=== PATIENT | female | born 1935 | race Caucasian/White ===

== ENCOUNTER 2017-01-05 12:26 | Inpatient (IN) | payer MEDICARE, OTHER ==
[~2017-01-05] VITALS: Ht 157.5 cm; Wt 79.7 kg
[~2017-01-05 12:26] MED LIST: /GLIP10TAB PO; ALIG4CAP PO; AMLO10TA2 PO; ASPI1TAB PO; ASPI81TA85 PO; ATOR1TAB21 PO; BREO1INH INH; GLIP10TA6 PO; HYDR12CA PO; INSUH10VL SC; INSULANT SC; JANU100T PO; LEVO100T5 PO; LEVO125T3 PO; LEVO50TA4 PO; LOSA100T36 PO; METF500T PO; MIRA255PW PO; MIRA3350 PO; NEXI40CA PO; NEXI40GR PO; SENN8.6T7 PO; SIMV20TA2 PO; SPIR1CAP INH; SPIR25TA2 PO; Spiriva INH; TORS10TA3 PO; ZOCO20TA PO
[2017-01-05 19:05] VITALS: BP 152/70
[2017-01-05] MEDS ORDERED: ACETAMINOPHEN TAB 650MG DOSE (2X325MG) PO PRN (19:30)
[2017-01-05] MEDS ORDERED: GLUCOSE 4 GM CHEW TABLET PO PRN (20:15)
[2017-01-05] MEDS ORDERED: DEXTROSE 50% 50 ML SYRINGE IV PRN (20:15)
[2017-01-05] MEDS ORDERED: GLUCAGON FOR INJ 1 MG VIAL (J1610) SC PRN (20:15)
[2017-01-05 20:27] VITALS: O2SAT 98
[2017-01-05 22:00] VITALS: BP 155/70
[2017-01-05] MEDS ORDERED: [UNRECOGNIZED DRUG - OTHER] INH (22:04)
[2017-01-05] MEDS ORDERED: KEPP1TAB2 PO (22:04)
[2017-01-05] MEDS ORDERED: SYNT137T7 NG (22:04)
[2017-01-05] MEDS ORDERED: IRBE300T10 NG (22:10)
[2017-01-05] MEDS ORDERED: CRES10TA32 NG (22:10)
[2017-01-05] MEDS ORDERED: LASI40TA PO (22:10)
[2017-01-05] MEDS ORDERED: NYST50SS SS (22:10)
[2017-01-05] MEDS ORDERED: AMLO10TA2 NG (22:10)
[2017-01-05] MEDS ORDERED: DIME50TA2 PO (22:18)
[2017-01-05] MEDS ORDERED: SERO1TAB3 PO (22:18)
[2017-01-05] MEDS ORDERED: ALBU17IN INH (22:18)
[2017-01-05] MEDS ORDERED: LORA2TAB9 PO (22:18)
[2017-01-05] MEDS: IPRATROPIUM 0.5MG/ALBUTEROL 2.5MG INH SOL UD 3ML (DUONEB)(J7620) NEB SCH (23:21)
[2017-01-05] MEDS ORDERED: LORazepam 1 MG TAB PO PRN (23:30)
[2017-01-05] MEDS ORDERED: MIRALAX *UNIT DOSE* 17GM PACKET PO PRN (23:30)
[2017-01-05] MEDS: levETIRAcetam 250MG TABLET (KEPPRA) PO SCH (23:41)
[2017-01-05] MEDS: NYSTATIN 500,000 U/5 ML SUSP UDC SS SCH (23:42)
[2017-01-05] MEDS: HumaLOG INSULIN (NovoLOG) PER UNIT SC SCH (23:42)
[2017-01-06] VITALS (8 sets, daily range): BP systolic 124–162; BP diastolic 56–70
--- NOTE | 2017-01-06 00:29 | HPE ---
DATE OF ADMISSION: 01/05/2017 PRIMARY CARE PROVIDER: Dr. Ahmadi REASON FOR ADMISSION: Seizures, status post trache HISTORY OF PRESENT ILLNESS: The patient is an 81-year-old female with a past medical history significant for diabetes, hypertension, hyperlipidemia, was transferred to [facility] from [facility] in [place] earlier today. The patient was in [place] with her , going to a casino, when she had a seizure December 19, 2016. The patient was rushed to the hospital. She was unable to protect her own airway and she was incidentally intubated and was admitted to the intensive care unit. She remained on the ventilator for about 10 days. When she has been extubated, she had laryngeal early edema requiring a tracheostomy. The patient was started on Keppra 750 by mouth twice a day while she was there. Once she became more stable, she was transferred here per family's request. While over there, the patient also developed pneumonia which she was treated with antibiotics. She was also hyperglycemic requiring insulin drip for periods of time. Currently, the patient has been off of the ventilator for three days. She was able to ambulate earlier today. She has been off of the insulin drip, tolerating tube feeds through NG tube REVIEW OF SYSTEMS: Unable to obtain at this time. PAST MEDICAL HISTORY: Significant for diabetes, hypertension, hyperlipidemia, seizures and hypothyroidism. PAST SURGICAL HISTORY: Significant for right middle lobe lobectomy for granuloma, hysterectomy and a recent tracheostomy ALLERGIES: The patient has an allergy to MELOXICAM, reaction unknown. SOCIAL HISTORY: The patient smoked 1/2 pack one half a pack for 20 years but quit in 1992. No alcohol or drug use. Lives at home with her . FAMILY HISTORY: Noncontributory. Medications she was discharged on include Ventolin 2 puffs inhaled every 4 hours as needed for shortness of breath, amlodipine 10 mg by mouth daily, Lasix 40 mg daily, NovoLog sliding scale before meals (ac) and at bedtime, Lantus 42 units at bedtime, irbesartan 300 mg daily, Keppra 750 mg by mouth every 12 hours, Synthroid 137 mcg in the morning, lorazepam 2 mg every 5 minutes as needed for seizures and statin swish and swallow four times a day, MiraLax 17 grams by mouth daily as needed for constipation, Seroquel 25 mg every 6 hours as needed, Crestor 10 mg by mouth daily, Januvia 100 mg by mouth daily . PHYSICAL EXAMINATION: On arrival Vitals, temperature 100.1, pulse 64, respiratory rate 22, blood pressure is 152/70, pulse ox 91% on trache collar. HEENT: Pupils equal round reactive. NG tube in place. The trache collar in place. LUNGS: Diffuse rhonchi. CARDIAC: Regular rate and rhythm. No murmurs appreciated. ABDOMEN: Soft, nontender, nondistended. Positive bowel sounds. EXTREMITIES: Trace edema bilaterally. No clubbing or cyanosis. NEURO: Unable to do a full neurological exam at this time. LABORATORY FINDINGS: None available at this time; will be ordered in the morning. ASSESSMENT/PLAN: 1. Seizures. The patient has no known history of seizures, but had an episode of seizure December 19 requiring intubation. The patient is currently on 750 of Keppra by mouth twice a day and will likely need to followup with neurology upon discharge. The patient did not have any other episodes of seizures per the record. Will continue to monitor. Will continue seizure precautions while in bed. 2. Respiratory failure status post intubation and tracheostomy. The patient currently has a trache collar with good oxygen saturation 98%. Per ICU note prior to transfer, the patient developed laryngeal edema requiring reintubation and a trache collar. ENT consultation is recommended prior to decannulation. Will continue DuoNeb as needed and scheduled. 3. Insulin-dependent diabetes. We will continue insulin sliding scale and Glucerna tube feeds. We will check Accu-Chek every 6 hours. 4. Nutritional status. The patient is currently getting Glucerna for tube feeds. We will order speech evaluation in the morning. 5. Weakness. We will order physical therapy. The patient may need rehabilitation for a short period of time. Will order a Patient Family Services (PFS) consultation as well. 6. Hypertension. The patient's blood pressures are currently stable at 155/70. We will resume the patient's home medications. She had received a dose of hydralazine prior to transfer. 7. Deep vein thrombosis (DVT) prophylaxis. TEDs and sequentials while in bed.
[2017-01-06] MEDS: IPRATROPIUM 0.5MG/ALBUTEROL 2.5MG INH SOL UD 3ML (DUONEB)(J7620) NEB SCH ×4 (01:25→20:00)
[2017-01-06 04:59] LABS: MEAN CORPUSCULAR HEMOGLOBIN 27.5 pg (27.0-33.0); MEAN CORPUSCULAR HGB CONC 31.4 g/dl (32.0-36.5); MEAN CORPUSCULAR VOLUME 87.4 fl (80.0-96.0); RED CELL DISTRIBUTION WIDTH 13.7 % (11.5-14.5); WHITE BLOOD COUNT 8.8 K/mm3 (4.0-10.0)
[2017-01-06 05:14] LABS: ALBUMIN 2.4 GM/DL (3.2-5.2); ALBUMIN/GLOBULIN RATIO 0.57 (1.00-1.93); BILIRUBIN,TOTAL 0.3 MG/DL (0.2-1.0); CALCIUM LEVEL 8.7 MG/DL (8.8-10.2); CREATININE FOR GFR 1.3 MG/DL (0.55-1.02); GLOMERULAR FILTRATION RATE 41.6 (>32); MAGNESIUM LEVEL 2.3 MG/DL (1.8-2.4); POTASSIUM SERUM 4.5 MEQ/L (3.5-5.1); TOTAL PROTEIN 6.6 GM/DL (6.4-8.2)
[2017-01-06] MEDS: HumaLOG INSULIN (NovoLOG) PER UNIT SC SCH ×4 (05:46→23:42)
[2017-01-06] MEDS: NYSTATIN 500,000 U/5 ML SUSP UDC SS SCH ×4 (05:46→23:41)
[2017-01-06] MEDS ORDERED: SODIUM CHLORIDE 0.9% INJ 10 ML SYR IV PRN (07:30)
[2017-01-06] MEDS: amLODIPine 10 MG TAB NG SCH (08:43)
[2017-01-06] MEDS: ROSUVASTATIN 10 MG TAB (CRESTOR) NG SCH (08:43)
[2017-01-06] MEDS: IRBESARTAN 150 MG TAB NG SCH (08:43)
[2017-01-06] MEDS: levETIRAcetam 250MG TABLET (KEPPRA) PO SCH ×2 (08:43→21:40)
[2017-01-06] MEDS: FUROSEMIDE 40 MG TAB PO SCH (08:43)
[2017-01-06] MEDS: SPIRONOLACTONE 25 MG TAB PO SCH (08:44)
[2017-01-06] MEDS ORDERED: LEVOTHYROXINE 0.137 MG TAB (137MCG) NG SCH (09:00)
--- NOTE | 2017-01-06 14:20 | IPNPDOC ---
Text Note Date of Service The patient was seen on 01/06/17. NOTE Subjective: Patient is a 81 year old female with a PMHx IDDM2, HTN, and DLP who presented to [facility] from [facility]. Patient had a seizure episode and was taken to [facility] where she was intubated for airway protection. She remained intubated for 10 days. Upon extubation, she was found to have laryngeal edema and received a tracheostomy. During her ICU course at [facility] she had uncontrolled glucose and was put on an insulin drip. Patient had a NGT placed for feeding. Patient was seen and examined at the bedside. Patient did not have any specific complaints today and had no events overnight. Objective: Vitals (See below) General: Lying in bed, no acute distress, comfortable, AAOx3 HEENT: s/p Tracheostomy, s/p NGT CVS: RRR, +S1S2 Lungs: Fair air entry b/l, -w/r/r Abdomen: Soft, ND, NT, +BSx4 Extremities: +PPx4, - Edema, - Calf tenderness Assessment and plan: 1. s/p Ventilatory dependent respiratory failure; with resulting laryngeal edema - s/p tracheostomy - Surgery performed in [place] - Currently she is tolerating room air via tracheostomy - Swallow evaluation complete this morning; failed - Will get ENT to evaluate to see if tracheostomy can be reversed - Will repeat swallow evaluation; if still failing - may require PEG tube placement - c/w Glucerna via NGT at this time 2. Seizure disorder - Last episode on 12/19/2016 - c/w seizure precautions - c/w Keppra 750 PO BID 3. IDDM2 - has been on long acting insulin as an outpatient; but on hold currently - c/w ISS 4. Weakness - will get physical therapy for rehabilitation - will get PM&R assessment 5. HTN - BP moderately controlled - c/w Amlodipine, Furosemide and Spironolactone 6. DVT prophylaxis - c/w SCDs VS,Fishbone, I+O VS, Fishbone, I+O Laboratory Tests 01/06/17 04:32 Red Blood Count 3.81 L, Mean Corpuscular Volume 87.4, Mean Corpuscular Hemoglobin 27.5, Mean Corpuscular Hemoglobin Concent 31.4 L, Red Cell Distribution Width 13.7, Calcium Level 8.7 L, Aspartate Amino Transf (AST/SGOT) 11 L, Alanine Aminotransferase (ALT/SGPT) 31, Alkaline Phosphatase 111, Total Bilirubin 0.3, Total Protein 6.6, Albumin 2.4 L Vital Signs Date Time Temp Pulse Resp B/P (MAP) Pulse Ox O2 Delivery O2 Flow Rate FiO2 01/06/17 12:00 98.4 69 22 157/70 (99) 95 Room Air 01/06/17 09:27 28 01/05/17 20:27 5.0 I&O- Last 24 Hours up to 6 AM 01/06/17 06:00 Intake Total 175 ml Output Total 450 ml Balance -275 ml ISAK SNEED MD January 06, 2017 14:20
--- NOTE | 2017-01-06 14:58 | CR ---
DATE OF CONSULTATION: 01/06/2017 REASON FOR CONSULTATION: Tracheostomy management. REQUESTING PHYSICIAN: Dr. Kwon HISTORY OF PRESENT ILLNESS: Beatriz Black is an 81-year-old woman who had a seizure while at a casino in [place] December 19. Ultimately, the patient was rushed to the hospital and she was intubated. Subsequently she required tracheostomy tube placement. The patient has now been transferred here to [facility]. She arrived yesterday. Per the foreign exchange dealer note, the patient has been off the ventilator now for 4 days. She is not requiring any supplemental oxygen and the question whether or not she can be decannulated. Significantly, the patient did have a trial of extubation while she was in [place] and apparently the development of laryngeal edema did require tracheostomy placement. PAST MEDICAL HISTORY: Diabetes. Hypertension. Hyperlipidemia. Hypothyroidism. Seizures. PAST SURGICAL HISTORY: Right middle lobe lobectomy for granuloma. Hysterectomy. Tracheostomy. ALLERGIES: MELOXICAM. SOCIAL HISTORY: The patient quit smoking in 1992. FAMILY HISTORY: Noncontributory. REVIEW OF SYSTEMS: Is difficult to obtain. The patient's ability to communicate is hampered significantly by tracheostomy. PHYSICAL EXAMINATION: Temperature 98.1, pulse 58, blood pressure 146/64, respirations 20. GENERAL: The patient is in no acute distress. The patient is not recieving any supplemental oxygen and appears comfortable. There is no tachypnea. The patient is nodding her head to answer questions appropriately. She seems oriented. NECK: There is tracheostomy tube in place. This is a #6 XLT tube. There does not appear to be any significant bleeding around the stoma. There are no signs of infection about the stoma. There are no sutures about the stoma. Tracheostomy tube is secured by trach collar. Flexible laryngoscopy was done. The flexible laryngoscope was inserted into the left nares. There is a feeding tube in the right nares. The laryngoscope was passed down. The nasopharynx is free of any lesions. The vallecula appears normal. The epiglottis appears normal. Both vocal cords are mobile. There is trace vocal cord edema and erythema. No significant swelling. No vocal cord lesions. No hypopharyngeal lesions are appreciated. The scope was then removed and it was placed into the tracheostomy tube. The scope was passed down the tracheostomy tube. There are no lesions from the end of the tracheostomy tube to the maira. There are a lot of secretions in the trachea. ASSESSMENT AND PLAN: Ms. Black is an 81-year-old woman, status post recent tracheostomy. The patient appears to be a good candidate for decannulation. I would like to downsize to a smaller uncuffed tube first and then would anticipate over the weekend, decannulating the patient. I have ordered for supplied to be made available to the bedside and as soon as those are available, will proceed with this plan.
[2017-01-06] MEDS: QUEtiapine FUMARATE 25 MG TAB PO PRN ×2 (15:07→21:40)
[2017-01-06] MEDS: SODIUM CHLORIDE 0.9% INJ 10 ML SYR IV SCH (17:40)
[2017-01-07] VITALS (7 sets, daily range): BP systolic 116–153; BP diastolic 57–74
[2017-01-07] MEDS: IPRATROPIUM 0.5MG/ALBUTEROL 2.5MG INH SOL UD 3ML (DUONEB)(J7620) NEB SCH ×4 (01:39→20:38)
[2017-01-07 05:42] LABS: MEAN CORPUSCULAR HEMOGLOBIN 28.1 pg (27.0-33.0); MEAN CORPUSCULAR HGB CONC 32.4 g/dl (32.0-36.5); MEAN CORPUSCULAR VOLUME 86.9 fl (80.0-96.0); WHITE BLOOD COUNT 10.5 K/mm3 (4.0-10.0)
[2017-01-07] MEDS: SODIUM CHLORIDE 0.9% INJ 10 ML SYR IV SCH ×2 (05:51→18:00)
[2017-01-07] MEDS: LEVOTHYROXINE 0.137 MG TAB (137MCG) NG SCH (05:51)
[2017-01-07] MEDS: HumaLOG INSULIN (NovoLOG) PER UNIT SC SCH ×4 (05:51→23:52)
[2017-01-07] MEDS: NYSTATIN 500,000 U/5 ML SUSP UDC SS SCH ×4 (05:51→23:52)
[2017-01-07 06:33] LABS: ALBUMIN 2.5 GM/DL (3.2-5.2); ALBUMIN/GLOBULIN RATIO 0.69 (1.00-1.93); BILIRUBIN,TOTAL 0.3 MG/DL (0.2-1.0); CALCIUM LEVEL 8.8 MG/DL (8.8-10.2); CREATININE FOR GFR 1.4 MG/DL (0.55-1.02); GLOMERULAR FILTRATION RATE 38.2 (>32); MAGNESIUM LEVEL 2.3 MG/DL (1.8-2.4); POTASSIUM SERUM 4.8 MEQ/L (3.5-5.1); TOTAL PROTEIN 6.1 GM/DL (6.4-8.2)
[2017-01-07] MEDS ORDERED: NS 1,000 ML IV SCH (07:45)
[2017-01-07] MEDS: amLODIPine 10 MG TAB NG SCH (10:09)
[2017-01-07] MEDS: ROSUVASTATIN 10 MG TAB (CRESTOR) NG SCH (10:10)
[2017-01-07] MEDS: SPIRONOLACTONE 25 MG TAB PO SCH (10:10)
[2017-01-07] MEDS: levETIRAcetam 250MG TABLET (KEPPRA) PO SCH ×2 (10:10→20:06)
[2017-01-07] MEDS: FUROSEMIDE 40 MG TAB PO SCH (10:10)
[2017-01-07] MEDS: IRBESARTAN 150 MG TAB NG SCH (10:11)
--- NOTE | 2017-01-07 11:16 | IPN ---
DATE: 01/07/2017 Lizbeth Black is an 81-year-old woman with indwelling tracheostomy tube. The plan for today was to down-size the tracheostomy tube. However, smaller adult size tracheostomy tubes are not available. So my plan will be to remove the existing tracheostomy tube and follow the patient. On exam, the patient is in no acute distress. She seems to be in good spirits. She is oriented. I placed the patient in supine position and removed the #6 Shiley XLT tube from the tracheal stoma and then occluded the stoma with my finger. The patient was breathing well. No tachypnea. No stridor. No distress. The patient was able to voice with my finger occluding the stoma. Therefore, a dressing was placed over the stoma and the patient was placed back in the head of bed elevated position. The nurses placed the patient on pulse ox monitor. ASSESSMENT/PLAN: Ms. Black was decannulated at the bedside today. She is doing well from that standpoint. I will continue to follow. I would recommend speech therapy return and evaluated the patient with a bedside swallow exam so that the nasogastric tube can be removed.
--- NOTE | 2017-01-07 15:00 | IPNPDOC ---
Text Note Date of Service The patient was seen on 01/07/17. NOTE Subjective: Patient is a 81 year old female with a PMHx IDDM2, HTN, and DLP who presented to [facility] from [facility]. Patient had a seizure episode and was taken to [facility] where she was intubated for airway protection. She remained intubated for 10 days. Upon extubation, she was found to have laryngeal edema and received a tracheostomy. During her ICU course at [facility] she had uncontrolled glucose and was put on an insulin drip. Patient had a NGT placed for feeding. Patient was seen and examined at the bedside. Patient has had her tracheostomy tube removed. She has still failed her swallow evaluation. Objective: Vitals (See below) General: Lying in bed, no acute distress, comfortable, AAOx3 HEENT: s/p Tracheostomy, s/p NGT CVS: RRR, +S1S2 Lungs: Fair air entry b/l, -w/r/r Abdomen: Soft, ND, NT, +BSx4 Extremities: +PPx4, - Edema, - Calf tenderness Assessment and plan: 1. s/p Ventilatory dependent respiratory failure; with resulting laryngeal edema - s/p tracheostomy - Surgery performed in [place] - Currently she is tolerating room air after the tracheostomy has been reversed - Swallow evaluation repeated this morning; again has failed after tracheostomy reversal - ENT (Dr. Wall) has been consulted - appreciate their input - Will attempt to get additional swallow evaluation; if failed, will get surgery onboard for PEG tube - c/w Glucerna via NGT at this time 2. Seizure disorder - Last episode on 12/19/2016 - c/w seizure precautions - c/w Keppra 750 PO BID 3. IDDM2 - has been on long acting insulin as an outpatient; but on hold currently - c/w ISS 4. Weakness - c/w PT - Awaiting PM&R assessment 5. HTN - BP moderately controlled - c/w Amlodipine, Furosemide and Spironolactone 6. DVT prophylaxis - c/w SCDs VS,Fishbone, I+O VS, Fishbone, I+O Laboratory Tests 01/07/17 05:28 Red Blood Count 3.28 L, Mean Corpuscular Volume 86.9, Mean Corpuscular Hemoglobin 28.1, Mean Corpuscular Hemoglobin Concent 32.4, Red Cell Distribution Width 14.0, Calcium Level 8.8, Aspartate Amino Transf (AST/SGOT) 15 , Alanine Aminotransferase (ALT/SGPT) 30, Alkaline Phosphatase 114, Total Bilirubin 0.3, Total Protein 6.1 L, Albumin 2.5 L Vital Signs Date Time Temp Pulse Resp B/P (MAP) Pulse Ox O2 Delivery O2 Flow Rate FiO2 01/07/17 12:23 Nasal Cannula 2.0 01/07/17 12:00 98.9 69 18 153/74 (100) 92 01/07/17 08:05 40 I&O- Last 24 Hours up to 6 AM 01/07/17 06:00 Intake Total 690 ml Output Total 1275 ml Balance -585 ml ISAK SNEED MD January 07, 2017 15:00
--- NOTE | 2017-01-07 15:02 | REP ---
PORTABLE CHEST X-RAY: TWO SITTING AP VIEWS. HISTORY: Feeding tube placement. COMPARISON STUDY: March 29, 2016. FINDINGS: EKG monitoring electrodes overlie the chest. Nasogastric tube is seen coursing through the mediastinum entering the left upper quadrant of the abdomen. It appears to terminate at the level of the gastric fundus. There is a left arm PICC line terminating in the expected location of the superior vena cava. Lung hunt are clear. Slight blunting of the right lateral pleural angle is seen. IMPRESSION: Nasogastric tube terminates in the gastric fundus region. Signed by John Denton MD 01/07/2017 04:38 P
[2017-01-07] MEDS: QUEtiapine FUMARATE 25 MG TAB PO PRN (16:48)
[2017-01-07] MEDS: ACETAMINOPHEN 325 MG/10.15 ML UDC GT PRN ×2 (16:49→23:51)
[2017-01-08] VITALS (8 sets, daily range): BP systolic 114–159; BP diastolic 58–71; O2SAT 91
[2017-01-08] MEDS: IPRATROPIUM 0.5MG/ALBUTEROL 2.5MG INH SOL UD 3ML (DUONEB)(J7620) NEB SCH ×4 (01:07→19:59)
[2017-01-08] MEDS: ACETAMINOPHEN 325 MG/10.15 ML UDC GT PRN ×4 (04:48→20:19)
[2017-01-08 05:15] LABS: ALBUMIN 2.4 GM/DL (3.2-5.2); ALBUMIN/GLOBULIN RATIO 0.6 (1.00-1.93); BILIRUBIN,TOTAL 0.3 MG/DL (0.2-1.0); CALCIUM LEVEL 8.4 MG/DL (8.8-10.2); CREATININE FOR GFR 1.42 MG/DL (0.55-1.02); GLOMERULAR FILTRATION RATE 37.6 (>32); MAGNESIUM LEVEL 2.3 MG/DL (1.8-2.4); POTASSIUM SERUM 4.5 MEQ/L (3.5-5.1); TOTAL PROTEIN 6.4 GM/DL (6.4-8.2)
[2017-01-08 05:23] LABS: MEAN CORPUSCULAR HEMOGLOBIN 27.6 pg (27.0-33.0); MEAN CORPUSCULAR HGB CONC 31.1 g/dl (32.0-36.5); MEAN CORPUSCULAR VOLUME 88.8 fl (80.0-96.0); PLATELET COUNT, AUTOMATED 353 k/mm3 (150-450); WHITE BLOOD COUNT 12.5 K/mm3 (4.0-10.0)
[2017-01-08] MEDS: LEVOTHYROXINE 0.137 MG TAB (137MCG) NG SCH (05:37)
[2017-01-08] MEDS: NYSTATIN 500,000 U/5 ML SUSP UDC SS SCH ×4 (05:37→23:41)
[2017-01-08] MEDS: SODIUM CHLORIDE 0.9% INJ 10 ML SYR IV SCH ×2 (05:38→18:00)
[2017-01-08] MEDS: HumaLOG INSULIN (NovoLOG) PER UNIT SC SCH ×3 (05:39→18:00)
[2017-01-08] MEDS: IRBESARTAN 150 MG TAB NG SCH (08:49)
[2017-01-08] MEDS: SPIRONOLACTONE 25 MG TAB PO SCH (08:50)
[2017-01-08] MEDS: FUROSEMIDE 40 MG TAB PO SCH (08:50)
[2017-01-08] MEDS: amLODIPine 10 MG TAB NG SCH (08:50)
[2017-01-08] MEDS: levETIRAcetam 250MG TABLET (KEPPRA) PO SCH ×2 (08:50→20:19)
[2017-01-08] MEDS: ROSUVASTATIN 10 MG TAB (CRESTOR) NG SCH (08:50)
[2017-01-08 08:51] LABS: ERYTHROCYTE SEDIMENTATION RATE > 140 mm/hr (0-30)
--- NOTE | 2017-01-08 08:57 | REP ---
Clinical: Follow up infiltrate/effusion. Technique: PA and lateral. Comparison: 01/07/2017. Findings: Left PICC line with tip in the SVC unchanged. Mediastinum and cardiac silhouette are stable. Chronic interstitial changes are appreciated with suggestions for mild bibasilar atelectasis and pleural reactions. No pneumothorax. Skeletal structures stable. Impression: Trace posterior basilar atelectasis and small pleural reactions suggested. Signed by Jose Galindo MD 01/08/2017 08:49 A
--- NOTE | 2017-01-08 10:12 | IPN ---
DATE: 01/08/2017 Ms. Black had an evaluation by speech pathology yesterday and was felt to be unsafe to swallow. Patient complains today that is hurts to breathe. Oxygen has been increased to 3 liters. On examination, the patient is sitting up in a chair, she looks uncomfortable, however, the patient is in no acute distress. The breathing is a little noisy and the patient can voice, her voice sounds weak and hoarse. The neck exam demonstrates healing tracheal stoma, dressing was changed, there are no signs of infection around the tracheal stoma. No subcutaneous air. ASSESSMENT AND PLAN: Ms. Black is an 81-year-old woman status post decannulation of tracheostomy tube. Her voice sounds a bit weaker than I would expect at this point. I will see that patient again tomorrow. If the voice continues in this way, I will take another look with the flexible laryngoscope.
[2017-01-08] MEDS: LEVEMIR (INSULIN DETEMIR) 1 UNITS/0.01ML SC SCH ×2 (10:55→20:18)
[2017-01-08] MEDS ORDERED: cefTRIAXone SOD 1 GM in D5W MINI-BAG PLUS 50 ML IV SCH (13:30)
[2017-01-08] MEDS ORDERED: AZITHROMYCIN INJ 500 MG, VIAL MATE ADAPTER 1 EACH in D5W 250 ML IV SCH (13:30)
--- NOTE | 2017-01-08 13:30 | IPNPDOC ---
Text Note Date of Service The patient was seen on 01/08/17. NOTE Subjective: Patient is a 81 year old female with a PMHx IDDM2, HTN, and DLP who presented to [facility] from [facility]. Patient had a seizure episode and was taken to [facility] where she was intubated for airway protection. She remained intubated for 10 days. Upon extubation, she was found to have laryngeal edema and received a tracheostomy. During her ICU course at [facility] she had uncontrolled glucose and was put on an insulin drip. Patient had a NGT placed for feeding. Patient was seen and examined at the bedside. Patient is currently noted that she is hungry and wants to eat. I have advised her that we will have to wait for a repeat swallow study before her diet can be resumed. She denies any pain. She does have a cough. Objective: Vitals (See below) General: Lying in bed, no acute distress, comfortable, AAOx3 HEENT: s/p Tracheostomy, s/p NGT CVS: RRR, +S1S2 Lungs: Fair air entry b/l, -w/r/r Abdomen: Soft, ND, NT, +BSx4 Extremities: +PPx4, - Edema, - Calf tenderness Assessment and plan: 1. s/p Ventilatory dependent respiratory failure; with resulting laryngeal edema - s/p tracheostomy - Surgery performed in [place] - Currently she is tolerating room air after the tracheostomy has been reversed - Swallow evaluation was repeated but was unsucessful - Plan for repeat swallow evaluation on Tuesday; if failed will consult GI - ENT (Dr. Wall) has been consulted - appreciate their input - c/w Glucerna via NGT at this time 2. Leukocytosis - possibly 2/2 atelectasis, possibly 2/2 healthcare associated pneumonia - no reported fevers - patient does have a cough - will get sputum sample - start incentive spirometry - Will repeat lab work; if still elevated will start antibiotics 3. Normocytic anemia - Hg baseline of 11-12 - Hg on admission was 10.5; has trended down to 8.7 - No reported blood loss - Will check Iron panel, B12, Folate and reticulocyte count - Will repeat CBC at 12 - Will transfuse if required 4. Seizure disorder - Last episode on 12/19/2016 - c/w seizure precautions - c/w Keppra 750 PO BID 5. IDDM2 - will start Levemir 10 units BID today - c/w ISS 6. Weakness - c/w PT - Awaiting PM&R assessment 7. HTN - BP moderately controlled - c/w Amlodipine and Spironolactone - Will reduce Furosemide to 20 (from 40 daily) 8. DVT prophylaxis - c/w SCDs VS,Fishbone, I+O VS, Fishbone, I+O Laboratory Tests 01/08/17 04:42 Red Blood Count 3.15 L, Mean Corpuscular Volume 88.8, Mean Corpuscular Hemoglobin 27.6, Mean Corpuscular Hemoglobin Concent 31.1 L, Red Cell Distribution Width 14.0, Calcium Level 8.4 L, Aspartate Amino Transf (AST/SGOT) 8 L, Alanine Aminotransferase (ALT/SGPT) 27, Alkaline Phosphatase 112, Total Bilirubin 0.3, Total Protein 6.4, Albumin 2.4 L Vital Signs Date Time Temp Pulse Resp B/P (MAP) Pulse Ox O2 Delivery O2 Flow Rate FiO2 01/08/17 12:00 98.6 55 20 114/58 (76) 96 Nasal Cannula 3.0 01/07/17 08:05 40 I&O- Last 24 Hours up to 6 AM 01/08/17 06:00 Intake Total 2050 ml Output Total 750 ml Balance 1300 ml ISAK SNEED MD January 08, 2017 13:30
[2017-01-08 14:09] LABS: BASO % 0.2 % (0.0-1.0); EOS # 0.2 K/mm3 (0.0-0.50); EOS % 1.6 % (0.0-3.0); LARGE UNSTAINED CELL # 0.2 K/mm3 (0.0-0.4); LARGE UNSTAINED CELL % 1.3 % (0.0-4.0); LYMPH # 1.5 K/mm3 (1.5-4.5); LYMPH % 9.5 % (24.0-44.0); MEAN CORPUSCULAR HEMOGLOBIN 27.9 pg (27.0-33.0); MEAN CORPUSCULAR HGB CONC 32.1 g/dl (32.0-36.5); MEAN CORPUSCULAR VOLUME 86.9 fl (80.0-96.0); MONO # 0.7 K/mm3 (0.0-0.8); MONO % 4.6 % (0.0-5.0); NEUTROPHILS # 13.3 K/mm3 (1.8-7.7); NEUTROPHILS % 82.8 % (36.0-66.0); PLATELET COUNT, AUTOMATED 368 k/mm3 (150-450); RED CELL DISTRIBUTION WIDTH 13.9 % (11.5-14.5); WHITE BLOOD COUNT 16.1 K/mm3 (4.0-10.0)
[2017-01-08] MEDS: QUEtiapine FUMARATE 25 MG TAB PO PRN (14:10)
[2017-01-08 14:11] LABS: RETIC HEMOGLOBIN CONTENT CHr 30.5 PG (24-36); RETICULOCYTE % ADVIA2120 1.7 % (0.5-1.5)
[2017-01-08 14:34] LABS: FERRITIN 97 NG/ML (8-252); PERCENT SATURATION 7.1 % (13.2-37.4); TOTAL IRON BINDING CAPACITY 336 UG/DL (250-450)
[2017-01-08] MEDS: PIPERACILLIN/TAZOBACTAM SOD 3.375 GM in D5W MINI-BAG PLUS 50 ML IV SCH ×2 (15:49→22:41)
[2017-01-08] MEDS ORDERED: VANCOMYCIN HCL 750 MG, VIAL MATE ADAPTER 1 EACH in D5W 250 ML IV SCH (16:00)
--- NOTE | 2017-01-08 20:54 | PHACANCOPD ---
PHARMACY VANCOMYCIN DOSING Pt Demographics Demographics Patient Age:81 , Weight:79.100 , Gender: female Adjusted Body Weight Date: 01/08/17, Adjusted Body Weight: [67] Kg Events Past 24 Hours Events Past 24 Hours: NO: Dialysis, Diuretic Therapy, Change in CrCl, Fever, Elevation in WBC, Pending Diagnostics, Pending Procedures, Other Vancomycin Vancomycin Target Ranges: 15-20 mcg/ml Vancomycin Load Y/N: No Load Dose Date Time Vancomycin Load Dose: Date: Time: Vancomycin Dose Date: 01/08/17. Current Vancomycin Dose: [1000MG Q24H] Intermittent Dosing?: No Labs Labs Item Value Date Time White Blood Count 16.1 K/mm3 H 01/08/17 1353 Creatinine 1.42 MG/DL H 01/08/17 0442 Vital Signs Label Value Date Time Patient Temperature 99.5 degrees F 01/08/17 1600 Temperature Source Temporal 01/08/17 1600 Micro Microbiology 01/08/17 Blood Culture, Received Pending 01/08/17 Blood Culture, Received Pending Creatinine Clearance Date:01/08/17. Creatinine Clearance: [25]. Pending Labs trough - @0800 Assessment and Plan Maintaining Current Dose?: Yes Reason for dose change: No Dose Change Pharmacist Note Pharmacist Note Date: 01/08/17. Pharmacist note:initial 750mg dose given 01-08 @1600. started 1000mg q24h dosing - @0900. Trough ordered for - @0800. Will continue to monitor and make adjustments as needed. [facility] January 08, 2017 20:54
[2017-01-08] MEDS: ONDANSETRON 4MG/2ML VIAL (J2405) IV SCH (21:30)
[2017-01-08] MEDS ORDERED: NS 1,000 ML IV SCH (23:30)
[2017-01-08] MEDS: D5W/0.9% SODIUM CHLORIDE 1,000 ML IV SCH (23:54)
[2017-01-09] MEDS: IPRATROPIUM 0.5MG/ALBUTEROL 2.5MG INH SOL UD 3ML (DUONEB)(J7620) NEB SCH ×4 (01:38→19:59)
[2017-01-09] MEDS: ONDANSETRON 4MG/2ML VIAL (J2405) IV SCH ×2 (01:53→05:08)
[2017-01-09 03:42] VITALS: BP 141/65
[2017-01-09] MEDS: LEVOTHYROXINE 0.137 MG TAB (137MCG) NG SCH (05:07)
[2017-01-09] MEDS: QUEtiapine FUMARATE 25 MG TAB PO PRN (05:07)
[2017-01-09] MEDS: NYSTATIN 500,000 U/5 ML SUSP UDC SS SCH ×4 (05:07→23:47)
[2017-01-09] MEDS: SODIUM CHLORIDE 0.9% INJ 10 ML SYR IV SCH ×2 (05:08→17:08)
[2017-01-09] MEDS: HumaLOG INSULIN (NovoLOG) PER UNIT SC SCH ×5 (05:46→23:48)
[2017-01-09 05:55] LABS: MEAN CORPUSCULAR HEMOGLOBIN 27.6 pg (27.0-33.0); MEAN CORPUSCULAR HGB CONC 32.1 g/dl (32.0-36.5); RED CELL DISTRIBUTION WIDTH 13.9 % (11.5-14.5); WHITE BLOOD COUNT 14.9 K/mm3 (4.0-10.0)
[2017-01-09] MEDS: PIPERACILLIN/TAZOBACTAM SOD 3.375 GM in D5W MINI-BAG PLUS 50 ML IV SCH ×3 (06:04→22:07)
[2017-01-09 06:13] LABS: ALBUMIN 2.4 GM/DL (3.2-5.2); ALBUMIN/GLOBULIN RATIO 0.56 (1.00-1.93); BILIRUBIN,TOTAL 0.3 MG/DL (0.2-1.0); CALCIUM LEVEL 8.8 MG/DL (8.8-10.2); CREATININE FOR GFR 1.79 MG/DL (0.55-1.02); GLOMERULAR FILTRATION RATE 28.8 (>32); MAGNESIUM LEVEL 2.3 MG/DL (1.8-2.4); PHOSPHORUS LEVEL 4.4 MG/DL (2.5-4.9); POTASSIUM SERUM 3.9 MEQ/L (3.5-5.1); TOTAL PROTEIN 6.7 GM/DL (6.4-8.2)
[2017-01-09 08:00] VITALS: BP 115/60
[2017-01-09] MEDS: ACETAMINOPHEN 325 MG/10.15 ML UDC GT PRN ×2 (08:22→17:09)
[2017-01-09] MEDS: ROSUVASTATIN 10 MG TAB (CRESTOR) NG SCH (08:22)
[2017-01-09] MEDS: SPIRONOLACTONE 25 MG TAB PO SCH (08:22)
[2017-01-09] MEDS: levETIRAcetam 250MG TABLET (KEPPRA) PO SCH ×2 (08:22→21:45)
[2017-01-09] MEDS: amLODIPine 5 MG TAB NG SCH (08:23)
[2017-01-09] MEDS: IRBESARTAN 150 MG TAB NG SCH (08:23)
[2017-01-09] MEDS: VANCOMYCIN HCL 1,000 MG, VIAL MATE ADAPTER 1 EACH in D5W 250 ML IV SCH (08:23)
[2017-01-09] MEDS: LEVEMIR (INSULIN DETEMIR) 1 UNITS/0.01ML SC SCH ×2 (08:24→21:45)
[2017-01-09 08:47] VITALS: O2SAT 96
[2017-01-09] MEDS ORDERED: FUROSEMIDE 20 MG TAB PO SCH (09:00)
[2017-01-09] MEDS: D5W/0.9% SODIUM CHLORIDE 1,000 ML IV SCH ×2 (09:29→21:46)
[2017-01-09] MEDS: METOCLOPRAMIDE INJ 10MG/2ML VIAL (J2765) IV SCH ×3 (09:29→21:45)
--- NOTE | 2017-01-09 10:25 | CR ---
DATE OF CONSULTATION: 01/09/2017 CHIEF COMPLAINT: Abdominal distension. HISTORY OF PRESENT ILLNESS: The patient is a 81-year-old female who was recently transferred to [facility] from [facility] in [place] for tracheostomy care. Her tracheostomy has been removed, however, due to dysphagia she has been getting tube feeds through an nasogastric tube (NG) tube. She was be watched over the weekend with plan to repeat a swallow evaluation this coming Tuesday, however, over the afternoon yesterday she started to become more distended with poor bowel sounds. She had a CAT scan completed which showed signs of a partial versus complete small bowel obstruction with collapse of the distal small bowel and large intestine, therefore I have been asked to evaluate. The patient denies any current pain. No nausea or vomiting. No bowel movements or flatus in the last 24 hours. She has had a hysterectomy in the past but denies any other abdominal surgeries. No problems with bowel obstructions previously. She does feel slightly more distended than normal, however, no pain currently. She has had the NG tube in for a few days and was receiving tube feeds through it, but now it is on wall suction and is putting out bilious fluid. PAST MEDICAL HISTORY: Diabetes, hypertension, hyperlipidemia, seizures, hypothyroidism. PAST SURGICAL HISTORY: Right middle lobe lobectomy for granuloma, hysterectomy, tracheostomy. MEDICATIONS: Please see medical record. ALLERGIES: MELOXICAM. SOCIAL HISTORY: Denies any current drug, alcohol, or tobacco abuse. FAMILY HISTORY: Noncontributory. REVIEW OF SYSTEMS: Pertinent positives and negatives stated in the HPI. PHYSICAL EXAMINATION: General: Alert and oriented times three. No acute distress. Vitals: Temperature 98.9, pulse 63, respirations 18, blood pressure 115/60, pulse ox 100% on 3 liters nasal cannula. HEENT: Pupils equal round and react to light and accommodation. Heart: S1-S2 regular rate and rhythm. Lungs: Clear to auscultation bilaterally. Abdomen: Soft, tender to palpation diffusely, slightly distended. No rebounding or guarding. Extremities: No clubbing, cyanosis or edema. LABORATORY DATA: White count 14.9, hemoglobin 9.3. IMAGING: CT abdomen and pelvis again shows dilated proximal small bowel with collapsed small-bowel in the right lower abdomen and collapsed colon. No signs of any free air or free fluid. ASSESSMENT/PLAN: The patient is an 81-year-old female status post recent tracheostomy for laryngeal edema that has been removed. However, she has had difficulty swallowing and failed her first swallow evaluation. She has been getting tube feeds through the NG tube with plans to have repeat swallow evaluation this coming Tuesday. However, over the weekend she has had abdominal distension. NG tube is now to suction. She has what appears to be a partial versus complete acute small bowel obstruction on CAT scan, this could be secondary to internal hernia versus adhesions. Recommendation at this time is to continue with IV fluids, antibiotics and NG tube decompression. I explained to the patient that we will continue to monitor this. Her lactic acid was normal last evening at 1.7. As long as her white count does not shoot up dramatically and her lactic acid remains normal and she remains afebrile we will continue to watch her for 72 hours to see if this will decompress on its own. I also encouraged ambulation. If after 72 hours she is not opened up then we will consider diagnostic laparoscopy versus laparotomy to fix the bowel obstruction.
--- NOTE | 2017-01-09 11:03 | IPN ---
DATE: 01/09/2017 Beatriz Black has had some vomiting overnight. She is still on 3 liters nasal cannula. is at the bedside and he says that the patient's voice has been improving and her breathing has been getting a little bit easier. On examination, the patient is lying in bed, she was asleep, I woke her up and indeed her voice does sound stronger and less hoarse today. I do not detect any stridor. Patient has no tachypnea. Her breathing is not noisy. Patient has fresh dressing in place on the tracheal stoma site. ASSESSMENT AND PLAN: Beatriz Black is an 81-year-old woman status post decannulation of tracheostomy. At this point she seems to be doing well with this and I will sign off. If there are any other concerns regarding this patient, please recall me.
--- NOTE | 2017-01-09 11:50 | IPNPDOC ---
Text Note Date of Service The patient was seen on 01/09/17. NOTE Subjective: Patient is a 81 year old female with a PMHx IDDM2, HTN, and DLP who presented to [facility] from [facility]. Patient had a seizure episode and was taken to [facility] where she was intubated for airway protection. She remained intubated for 10 days. Upon extubation, she was found to have laryngeal edema and received a tracheostomy. During her ICU course at [facility] she had uncontrolled glucose and was put on an insulin drip. Patient had a NGT placed for feeding. Patient was seen and examined at the bedside. Patient has noted to have nausea and vomiting yesterday, as well as abdominal pain. She went for a CT scan of her abdomen / pelvis which revealed a new SBO. Surgery was consulted. Currently she still notes some nausea that hasn't resolved. Objective: Vitals (See below) General: Lying in bed, no acute distress, comfortable, AAOx3 HEENT: s/p Tracheostomy, s/p NGT CVS: RRR, +S1S2 Lungs: Fair air entry b/l, -w/r/r Abdomen: Soft, ND, Tenderness at LUQ / Epigastric area, Hypoactive bowel sounds Extremities: +PPx4, - Edema, - Calf tenderness Assessment and plan: 1. s/p Ventilatory dependent respiratory failure; with resulting laryngeal edema - s/p tracheostomy - Surgery performed in [place] - s/p Decannulation - Tolerating decannulation well - Swallow evaluation was repeated but was unsuccessful - Plan for repeat swallow evaluation on Tuesday; if failed will consult GI / Surgery - Hold feedings at this time (re: SBO) 2. Leukocytosis - possibly 2/2 atelectasis, possibly 2/2 healthcare associated pneumonia, possibly 2/2 intra-abdominal etiology - no reported fevers - patient does have a productive cough - Improvement in Leukocytosis - will get sputum sample - c/w incentive spirometry - c/w Vancomycin and Zosyn (Day #2) 3. Nausea and vomiting - likely 2/2 Small bowel obstruction - Currently she has continued to have nausea and vomiting - CT abdomen/pelvis 01/08: acute SBO with collapsed small bowel in the right lower abdomen and collapsed colon. No free air / fluid. Trace bibasilar atelectasis. - Dr. Sandoval (Surgery) on consult; plan for 72 hours of observation; will consider surgery if leukocytosis or lactic acidosis worsens - Will keep her NPO and NGT to suction - c/w IV fluid hydration and broad spectrum antibiotics - Repeat lactic acid at 1PM 4. Normocytic anemia - Hg baseline of 11-12 - No reported blood loss - Iron panel consistent with early HENRRY - will start Iron when SBO resolves - Will again repeat CBC at 12 5. Seizure disorder - Last episode on 12/19/2016 - c/w seizure precautions - c/w Keppra 750 PO BID 6. IDDM2 - c/w Levemir 10 units BID; will increase to 15 BID - c/w ISS 7. Weakness - c/w PT - Awaiting PM&R assessment 8. HTN - BP moderately controlled - c/w Amlodipine - Hold furosemide and Spironolactone 9. DVT prophylaxis - c/w SCDs VS,Fishbone, I+O VS, Fishbone, I+O Laboratory Tests 01/08/17 13:53 Red Blood Count 3.26 L, Mean Corpuscular Volume 86.9, Mean Corpuscular Hemoglobin 27.9, Mean Corpuscular Hemoglobin Concent 32.1, Red Cell Distribution Width 13.9, Neutrophils (%) (Auto) 82.8 H, Lymphocytes (%) (Auto) 9.5 L, Monocytes (%) (Auto) 4.6, Eosinophils (%) (Auto) 1.6, Basophils (%) (Auto ) 0.2, Neutrophils # (Auto) 13.3 H, Lymphocytes # (Auto) 1.5, Monocytes # (Auto ) 0.7, Eosinophils # (Auto) 0.2, Basophils # (Auto) 0.0 01/08/17 17:57 01/08/17 22:56 01/09/17 05:19 Red Blood Count 3.37 L, Mean Corpuscular Volume 86.0, Mean Corpuscular Hemoglobin 27.6, Mean Corpuscular Hemoglobin Concent 32.1, Red Cell Distribution Width 13.9, Calcium Level 8.8, Phosphorus Level 4.4, Aspartate Amino Transf (AST/SGOT) 8 L, Alanine Aminotransferase (ALT/SGPT) 19, Alkaline Phosphatase 108, Total Bilirubin 0.3, Total Protein 6.7, Albumin 2.4 L Vital Signs Date Time Temp Pulse Resp B/P (MAP) Pulse Ox O2 Delivery O2 Flow Rate FiO2 01/09/17 08:47 61 01/09/17 08:47 96 Nasal Cannula 3.0 01/09/17 08:23 115/60 01/09/17 08:00 98.9 18 01/07/17 08:05 40 I&O- Last 24 Hours up to 6 AM 01/09/17 05:59 Intake Total 835 ml Output Total 1975 ml Balance -1140 ml ISAK SNEED MD January 09, 2017 11:50
[2017-01-09 12:00] VITALS: BP 125/54
--- NOTE | 2017-01-09 13:12 | REP ---
Clinical: Chest pain. Comparison: 09/26/2009. Findings: Lung hunt demonstrate age-related chronic interstitial changes and presumed mild chronic pulmonary vascular congestion. Small basilar ground-glass infiltrates and areas of atelectasis noted bilaterally. No effusion. No pneumothorax. Tracheobronchial tree is patent. A nasogastric tube is identified with its tip just entering the stomach. No obvious adenopathy. Atherosclerotic changes to the thoracic aorta and coronary arteries noted without cardiomegaly or pericardial effusion and no evidence for aortic aneurysm. Surrounding musculoskeletal structures demonstrate age-related degenerative changes. Impression: 1. Lung hunt demonstrate chronic changes with mild chronic pulmonary vascular congestion and trace basilar atelectasis and small ground-glass infiltrates. 2. Advanced atherosclerotic changes to the thoracic aorta and coronary arteries without aortic aneurysm or cardiomegaly. 3. Nasogastric tube is identified with its tip just entering the stomach and may warrant advancement. Signed by Jose Galindo MD 01/09/2017 01:03 P
[2017-01-09 16:00] VITALS: BP 121/55
[2017-01-09 20:00] VITALS: BP 132/76
[2017-01-10] VITALS: BP 139/65
[2017-01-10] MEDS: IPRATROPIUM 0.5MG/ALBUTEROL 2.5MG INH SOL UD 3ML (DUONEB)(J7620) NEB SCH ×4 (01:04→19:29)
[2017-01-10] MEDS: METOCLOPRAMIDE INJ 10MG/2ML VIAL (J2765) IV SCH ×4 (03:53→20:14)
[2017-01-10 04:00] VITALS: BP 126/69
[2017-01-10 05:17] LABS: MEAN CORPUSCULAR HEMOGLOBIN 27.9 pg (27.0-33.0); MEAN CORPUSCULAR HGB CONC 31.5 g/dl (32.0-36.5); MEAN CORPUSCULAR VOLUME 88.4 fl (80.0-96.0); RED CELL DISTRIBUTION WIDTH 13.9 % (11.5-14.5); WHITE BLOOD COUNT 12.5 K/mm3 (4.0-10.0)
[2017-01-10 05:37] LABS: ALBUMIN 2.2 GM/DL (3.2-5.2); ALBUMIN/GLOBULIN RATIO 0.49 (1.00-1.93); BILIRUBIN,TOTAL 0.3 MG/DL (0.2-1.0); CALCIUM LEVEL 8.3 MG/DL (8.8-10.2); CREATININE FOR GFR 1.59 MG/DL (0.55-1.02); MAGNESIUM LEVEL 2.3 MG/DL (1.8-2.4); PHOSPHORUS LEVEL 3.6 MG/DL (2.5-4.9); POTASSIUM SERUM 3.9 MEQ/L (3.5-5.1); TOTAL PROTEIN 6.7 GM/DL (6.4-8.2)
[2017-01-10] MEDS: IPRATROPIUM 0.5MG/ALBUTEROL 2.5MG INH SOL UD 3ML (DUONEB)(J7620) NEB PRN (05:42)
[2017-01-10] MEDS: SODIUM CHLORIDE 0.9% INJ 10 ML SYR IV SCH ×2 (06:00→17:56)
[2017-01-10] MEDS: PIPERACILLIN/TAZOBACTAM SOD 3.375 GM in D5W MINI-BAG PLUS 50 ML IV SCH ×3 (06:23→22:14)
[2017-01-10] MEDS: LEVOTHYROXINE 0.137 MG TAB (137MCG) NG SCH (06:24)
[2017-01-10] MEDS: NYSTATIN 500,000 U/5 ML SUSP UDC SS SCH ×3 (06:24→17:55)
[2017-01-10] MEDS: HumaLOG INSULIN (NovoLOG) PER UNIT SC SCH ×3 (06:24→17:56)
[2017-01-10 07:25] VITALS: BP 138/69
[2017-01-10 09:04] LABS: VITAMIN B12 LEVEL 828 PG/ML (247-911)
[2017-01-10 09:05] LABS: FOLATE > 24.0 NG/ML (>5.4)
[2017-01-10] MEDS: VANCOMYCIN HCL 1,000 MG, VIAL MATE ADAPTER 1 EACH in D5W 250 ML IV SCH (09:27)
[2017-01-10] MEDS: ROSUVASTATIN 10 MG TAB (CRESTOR) NG SCH (09:27)
[2017-01-10] MEDS: LEVEMIR (INSULIN DETEMIR) 1 UNITS/0.01ML SC SCH ×2 (09:27→20:14)
[2017-01-10] MEDS: IRBESARTAN 150 MG TAB NG SCH (09:28)
[2017-01-10] MEDS: levETIRAcetam 250MG TABLET (KEPPRA) PO SCH ×2 (09:28→20:13)
[2017-01-10] MEDS: amLODIPine 5 MG TAB NG SCH (09:28)
[2017-01-10] MEDS: D5W/0.9% SODIUM CHLORIDE 1,000 ML IV SCH ×2 (09:34→20:13)
[2017-01-10 11:40] VITALS: BP 135/67
--- NOTE | 2017-01-10 12:10 | IPNPDOC ---
Text Note Date of Service The patient was seen on 01/10/17. NOTE Subjective: Patient is a 81 year old female with a PMHx IDDM2, HTN, and DLP who presented to [facility] from [facility]. Patient had a seizure episode and was taken to [facility] where she was intubated for airway protection. She remained intubated for 10 days. Upon extubation, she was found to have laryngeal edema and received a tracheostomy. During her ICU course at [facility] she had uncontrolled glucose and was put on an insulin drip. Patient had a NGT placed for feeding. Patient was seen and examined at the bedside. She denies any nausea, vomiting or abdominal pain. She notes that she feels very thirsty. Repots a cough that continues. Objective: Vitals (See below) General: Lying in bed, no acute distress, comfortable, AAOx3 HEENT: s/p Tracheostomy, s/p NGT CVS: RRR, +S1S2 Lungs: Fair air entry b/l, -w/r/r Abdomen: Soft, ND, Tenderness at LUQ / Epigastric area, Hypoactive bowel sounds Extremities: +PPx4, - Edema, - Calf tenderness Assessment and plan: 1. s/p Ventilatory dependent respiratory failure; with resulting laryngeal edema - s/p tracheostomy - Surgery performed in [place] - s/p Decannulation - Tolerating decannulation well - Swallow evaluation was repeated but was unsuccessful - Plan for repeat swallow evaluation on Tomorrow (01/11); if failed Surgery for possible PEG tube - Hold feedings at this time (re: SBO) 2. Leukocytosis - possibly 2/2 atelectasis, possibly 2/2 healthcare associated pneumonia, possibly 2/2 intra-abdominal etiology - no reported fevers - patient does have a productive cough - Leukocytosis continues to improve - Sputum culture pending - c/w incentive spirometry - c/w Vancomycin and Zosyn (Day #3) 3. s/p Nausea and vomiting - likely 2/2 Small bowel obstruction - Currently she has continued to have nausea and vomiting - CT abdomen/pelvis 01/08: acute SBO with collapsed small bowel in the right lower abdomen and collapsed colon. No free air / fluid. Trace bibasilar atelectasis. - c/w NPO and NGT to suction - c/w IV fluid hydration and broad spectrum antibiotics - Dr. Sandoval (Surgery) on consult; continue additional 48 hours of observation 4. Normocytic anemia - Hg baseline of 11-12 - No reported blood loss - Iron panel consistent with early HENRRY - will start Iron when SBO resolves 5. Seizure disorder - Last episode on 12/19/2016 - c/w seizure precautions - c/w Keppra 750 PO BID 6. IDDM2 - c/w Levemir 15 units BID - c/w ISS 7. Weakness - c/w PT - Awaiting PM&R assessment 8. HTN - BP moderately controlled - c/w Amlodipine - Hold furosemide and Spironolactone 9. DVT prophylaxis - c/w SCDs VS,Fishbone, I+O VS, Fishbone, I+O Laboratory Tests 01/09/17 12:50 01/10/17 04:41 Red Blood Count 3.29 L, Mean Corpuscular Volume 88.4, Mean Corpuscular Hemoglobin 27.9, Mean Corpuscular Hemoglobin Concent 31.5 L, Red Cell Distribution Width 13.9, Calcium Level 8.3 L, Phosphorus Level 3.6, Aspartate Amino Transf (AST/SGOT) 15, Alanine Aminotransferase (ALT/SGPT) 17, Alkaline Phosphatase 95, Total Bilirubin 0.3, Total Protein 6.7, Albumin 2.2 L Vital Signs Date Time Temp Pulse Resp B/P (MAP) Pulse Ox O2 Delivery O2 Flow Rate FiO2 01/10/17 11:40 97.5 66 18 135/67 (89) 98 Nasal Cannula 3.0 01/07/17 08:05 40 I&O- Last 24 Hours up to 6 AM 01/10/17 06:00 Intake Total 1200 ml Output Total 1375 ml Balance -175 ml ISAK SNEED MD January 10, 2017 12:10
[2017-01-10 15:45] VITALS: BP 147/63
--- NOTE | 2017-01-10 18:10 | REPUSA ---
Clinical history: Line aand tubes placement. Comparison: None. Findings: A left-sided PICC line is in place within the superior vena cava. Nasogastric tube is seen passing into the stomach. The mediastinum and cardiac silhouette are within normal limits. The lungs are clear. No pleural effusion or pneumothorax is seen. The osseous structures and soft tissues are unremarkable. Impression: No acute disease. The PICC line is in satisfactory position. Nasogastric tube is within t he stomach.
[2017-01-10 20:00] VITALS: BP 149/57; PULSE 60
[2017-01-11] VITALS (7 sets, daily range): BP systolic 127–162; BP diastolic 52–73; PULSE 73–76
[2017-01-11] MEDS: IPRATROPIUM 0.5MG/ALBUTEROL 2.5MG INH SOL UD 3ML (DUONEB)(J7620) NEB SCH ×4 (01:10→20:11)
[2017-01-11] MEDS: D5W/0.9% SODIUM CHLORIDE 1,000 ML IV SCH (01:52)
[2017-01-11] MEDS: HumaLOG INSULIN (NovoLOG) PER UNIT SC SCH ×4 (01:52→17:38)
[2017-01-11] MEDS: NYSTATIN 500,000 U/5 ML SUSP UDC SS SCH ×4 (01:52→17:38)
[2017-01-11] MEDS: METOCLOPRAMIDE INJ 10MG/2ML VIAL (J2765) IV SCH ×4 (01:54→21:33)
[2017-01-11] MEDS: SODIUM CHLORIDE 0.9% INJ 10 ML SYR IV SCH ×2 (05:35→17:39)
[2017-01-11] MEDS: LEVOTHYROXINE 0.137 MG TAB (137MCG) NG SCH (05:35)
[2017-01-11] MEDS: PIPERACILLIN/TAZOBACTAM SOD 3.375 GM in D5W MINI-BAG PLUS 50 ML IV SCH ×3 (05:36→22:36)
[2017-01-11 06:16] LABS: MEAN CORPUSCULAR HEMOGLOBIN 28.2 pg (27.0-33.0); MEAN CORPUSCULAR HGB CONC 32.5 g/dl (32.0-36.5); MEAN CORPUSCULAR VOLUME 86.8 fl (80.0-96.0); RED CELL DISTRIBUTION WIDTH 13.7 % (11.5-14.5); WHITE BLOOD COUNT 9.7 K/mm3 (4.0-10.0)
[2017-01-11 06:35] LABS: ALBUMIN 2.3 GM/DL (3.2-5.2); ALBUMIN/GLOBULIN RATIO 0.55 (1.00-1.93); BILIRUBIN,TOTAL 0.3 MG/DL (0.2-1.0); CALCIUM LEVEL 8.2 MG/DL (8.8-10.2); CREATININE FOR GFR 1.19 MG/DL (0.55-1.02); GLOMERULAR FILTRATION RATE 46.1 (>32); PHOSPHORUS LEVEL 2.9 MG/DL (2.5-4.9); POTASSIUM SERUM 3.2 MEQ/L (3.5-5.1); TOTAL PROTEIN 6.5 GM/DL (6.4-8.2)
[2017-01-11] MEDS ORDERED: POTASSIUM CHLORIDE 10 MEQ SR TABLET PO ONE (08:00)
[2017-01-11] MEDS: LEVEMIR (INSULIN DETEMIR) 1 UNITS/0.01ML SC SCH ×4 (09:00→21:43)
[2017-01-11] MEDS: VANCOMYCIN HCL 1,000 MG, VIAL MATE ADAPTER 1 EACH in D5W 250 ML IV SCH (09:39)
[2017-01-11] MEDS: KCL 10MEQ IN D5/0.45NS 1000ML 1,000 ML IV SCH ×2 (09:40→18:40)
[2017-01-11] MEDS: levETIRAcetam 250MG TABLET (KEPPRA) PO SCH ×2 (09:41→21:33)
[2017-01-11] MEDS: amLODIPine 5 MG TAB NG SCH (09:41)
[2017-01-11] MEDS: ROSUVASTATIN 10 MG TAB (CRESTOR) NG SCH (09:41)
[2017-01-11] MEDS: IRBESARTAN 150 MG TAB NG SCH (09:51)
--- NOTE | 2017-01-11 09:53 | REP ---
KUB ABDOMEN AND PELVIS: Two KUB films of the abdomen and pelvis are performed. Nasogastric tube is seen coiled in the distal esophagus. There are moderately dilated small bowel loops as seen on the CT of 01/10/2017. Metallic clips are seen in the right upper quadrant. There are multiple phleboliths in the pelvis. IMPRESSION: Persistent small bowel dilatation of a moderate degree. Nasogastric tube coiled in the distal esophagus. Signed by Vinh Hager MD 01/13/2017 06:53 P
--- NOTE | 2017-01-11 12:36 | PHACANCOPD ---
PHARMACY VANCOMYCIN DOSING Pt Demographics Demographics Patient Age:81 , Weight:77.500 , Gender: female Adjusted Body Weight Date: 01/08/17, Adjusted Body Weight: [67] Kg Vancomycin Vancomycin indication: HCAP Vancomycin Target Ranges: 15-20 mcg/ml Vancomycin Load Y/N: No Load Dose Date Time Vancomycin Load Dose: Date: Time: Vancomycin Dose Date: 01/08/17. Current Vancomycin Dose: [1000MG Q24H] Intermittent Dosing?: No Labs Micro Microbiology 01/08/17 Blood Culture - Preliminary, Resulted No Growth after 48 hours. All Specime... 01/08/17 Blood Culture - Preliminary, Resulted No Growth after 48 hours. All Specime... 01/10/17 Gram Stain, Received Pending 01/10/17 Sputum Culture, Received Pending 01/08/17 Urine Culture - Final, Complete Creatinine Clearance Date:01/08/17. Creatinine Clearance: [25]. Pending Labs trough 01-10 @0800 Assessment and Plan Maintaining Current Dose?: Yes Reason for dose change: No Dose Change Pharmacist Note Pharmacist Note 01/11/17: Day #4 IV vancomycin. Scr has improved at 1.19 today. A vancomycin trough has been scheduled for tomorrow, 01/12/17, @0800. We will continue to monitor and make adjustments if needed. Date: 01/08/17. Pharmacist note:initial 750mg dose given 01-08 @1600. started 1000mg q24h dosing 01-09 @0900. Trough ordered for 01-10 @0800. Will continue to monitor and make adjustments as needed. PAULO [facility] January 11, 2017 12:36
--- NOTE | 2017-01-11 13:05 | IPN ---
DATE: 01/11/2017 Patient is seen and examined at the bedside. Chart has been reviewed. This morning the patient had a large brown bowel movement. She continues to have nasogastric tube. Denies any abdominal pain, nausea or vomiting. Resting comfortably in bed. No complaint of chest pain, pressure or tightness, shortness of breath, palpitations, lightheadedness or dizziness. Generally, awake, alert and oriented times three. Able to converse. Status post tracheostomy. Nasogastric tube in place. Heart S1 and S2, regular rate and rhythm. Lungs decreased air entry. Clear to auscultation. Abdomen tender right upper quadrant and epigastric area. Positive bowel sounds, but hypoactive. Soft, obese abdomen. Extremities negative edema and calf tenderness. LABORATORY DATA: White count 9.7, hemoglobin 8.4, hematocrit 25, platelet count 306, sodium 141, potassium 3.2, chloride 102, bicarb 33, BUN 12, creatinine 1.19, glucose 77. Sputum culture pending. Chest x-ray 01/10 left PICC line. Nasogastric tube. Lungs are clear. Abdominal x-ray 01/11 persistent small bowel dilatation, moderate degree. Nasogastric tube in distal esophagus. ASSESSMENT/PLAN: This is an 81-year-old female with insulin dependent diabetes, hypertension, dyslipidemia, who presented to [facility] from [place] with seizure episode. The patient was intubated for airway protection for 10 days, then extubation. She had laryngeal edema, had a trach with uncontrolled glucose and insulin drip. The patient has been admitted for advanced dependent respiratory failure with resulting laryngeal edema status post trach with decannulation. Swallow evaluation was unsuccessful. Repeat swallow evaluation today. May consider PEG tube placement, held tube feedings. Currently on IV fluids. CURRENT ISSUES: 1. Vent dependent respiratory failure with laryngeal edema status post tracheal decannulation. Repeat swallow evaluation is scheduled for today. If fails, may need PEG tube via surgery. Feedings have been held, IV fluids currently. 2. Leukocytosis with productive cough, possible healthcare associated and secondary intra-abdominal pathology. Sputum culture pending. Incentive spirometry. 3. Small bowel obstruction managed by Dr. Sandoval, general surgeon. Still on IV fluids, nothing by mouth status, nasogastric tube. Had a bowel movement today. Repeat x-ray is unchanged. 4. Normocytic anemia. Baseline 11-12. No reported blood loss. Continue to monitor her. 5. Seizure disorder. On Keppra. 6. Diabetes. On Levemir. 7. Weakness. Physical therapy and physical medicine and rehabilitation assessment once small bowel improves. 8. Hypertension. On Norvasc.
[2017-01-11] MEDS: IPRATROPIUM 0.5MG/ALBUTEROL 2.5MG INH SOL UD 3ML (DUONEB)(J7620) NEB PRN (22:33)
[2017-01-12] MEDS: NYSTATIN 500,000 U/5 ML SUSP UDC SS SCH ×3 (00:24→11:25)
[2017-01-12] MEDS: HumaLOG INSULIN (NovoLOG) PER UNIT SC SCH ×3 (00:25→12:13)
[2017-01-12] MEDS: IPRATROPIUM 0.5MG/ALBUTEROL 2.5MG INH SOL UD 3ML (DUONEB)(J7620) NEB SCH ×3 (01:04→14:00)
[2017-01-12 02:00] VITALS: BP 161/72
[2017-01-12] MEDS: METOCLOPRAMIDE INJ 10MG/2ML VIAL (J2765) IV SCH ×2 (03:17→11:25)
[2017-01-12] MEDS: KCL 10MEQ IN D5/0.45NS 1000ML 1,000 ML IV SCH (05:17)
[2017-01-12] MEDS: SODIUM CHLORIDE 0.9% INJ 10 ML SYR IV SCH (05:17)
[2017-01-12 05:47] LABS: MEAN CORPUSCULAR HEMOGLOBIN 28.2 pg (27.0-33.0); MEAN CORPUSCULAR HGB CONC 32.3 g/dl (32.0-36.5); MEAN CORPUSCULAR VOLUME 87.3 fl (80.0-96.0); RED CELL DISTRIBUTION WIDTH 13.6 % (11.5-14.5); WHITE BLOOD COUNT 8.4 K/mm3 (4.0-10.0)
[2017-01-12 06:00] VITALS: BP 148/72
[2017-01-12 06:04] LABS: ALBUMIN 2.3 GM/DL (3.2-5.2); ALBUMIN/GLOBULIN RATIO 0.68 (1.00-1.93); BILIRUBIN,TOTAL 0.3 MG/DL (0.2-1.0); CALCIUM LEVEL 7.9 MG/DL (8.8-10.2); CREATININE FOR GFR 1.1 MG/DL (0.55-1.02); GLOMERULAR FILTRATION RATE 50.5 (>32); MAGNESIUM LEVEL 1.9 MG/DL (1.8-2.4); PHOSPHORUS LEVEL 2.6 MG/DL (2.5-4.9); POTASSIUM SERUM 3.6 MEQ/L (3.5-5.1); TOTAL PROTEIN 5.7 GM/DL (6.4-8.2)
[2017-01-12] MEDS: PIPERACILLIN/TAZOBACTAM SOD 3.375 GM in D5W MINI-BAG PLUS 50 ML IV SCH (06:05)
[2017-01-12] MEDS: LEVOTHYROXINE 0.137 MG TAB (137MCG) NG SCH (06:05)
[2017-01-12] MEDS ORDERED: LEVEMIR (INSULIN DETEMIR) 1 UNITS/0.01ML SC SCH (09:00)
[2017-01-12 10:00] VITALS: BP 150/65
[2017-01-12] MEDS: levETIRAcetam 250MG TABLET (KEPPRA) PO SCH (11:25)
[2017-01-12 11:26] VITALS: BP 150/65
[2017-01-12] MEDS: amLODIPine 5 MG TAB NG SCH (11:26)
[2017-01-12] MEDS: IRBESARTAN 150 MG TAB NG SCH (11:26)
[2017-01-12] MEDS: VANCOMYCIN HCL 1,000 MG, VIAL MATE ADAPTER 1 EACH in D5W 250 ML IV SCH (11:26)
[2017-01-12] MEDS: ROSUVASTATIN 10 MG TAB (CRESTOR) NG SCH (11:26)
[2017-01-12] MEDS: LEVEMIR (INSULIN DETEMIR) 1 UNITS/0.01ML SC SCH (11:27)
[2017-01-12] MEDS ORDERED: LEVE1INJ5 SC (12:40)
[2017-01-12] MEDS ORDERED: MOXIFLOXACIN 400 MG TAB PO ONE (13:00)
[2017-01-12] MEDS ORDERED: GLUCOSE 4 GM CHEW TABLET PO PRN (14:15)
[2017-01-12] MEDS ORDERED: GLUCAGON FOR INJ 1 MG VIAL (J1610) SC PRN (14:15)
[2017-01-12] MEDS ORDERED: DEXTROSE 50% 50 ML SYRINGE IV PRN (14:15)
--- NOTE | 2017-01-12 14:39 | DSES ---
DATE OF ADMISSION: 01/05/2017 DATE OF DISCHARGE: Patient is being discharged to physical medicine and rehabilitation ([facility]) on 01/12/2017. PRIMARY DISCHARGE DIAGNOSES: 1. Vent dependent respiratory failure status post tracheostomy with decannulation status post laryngeal edema, currently on thickened pureed diet. 2. Pneumonia status post vancomycin and Zosyn. 3. Small bowel obstruction, resolved. 4. Normocytic anemia. 5. History of seizure disorder. 6. Diabetes. DISCHARGE MEDICATIONS: - Levemir insulin 6 units subcutaneous twice a day - Norvasc 10 daily - Lasix 40 daily - irbesartan 300 daily - insulin sliding scale - Keppra 750 every 12 hours - Synthroid 137 mcg daily - lorazepam 2 mg every 5 minutes for seizures - nystatin 5 mL swish and spit four times a day - MiraLax 17 grams daily - Seroquel 25 every 6 hours as needed for moods - Crestor 10 mg nasogastric (NG) daily - Januvia 100 daily - spironolactone 25 daily - Zenhale four puffs inhaled twice a day HOSPITAL COURSE: This is an 81-year-old female with history of insulin-dependent diabetes, hypertension, dyslipidemia, who presented to [facility] ([facility] from [place] with seizure. Patient was intubated for airway protection for 10 days and then extubated. Had laryngeal edema and was placed on insulin drip for uncontrolled glucose. Had a trach placed and was decannulated. Patient was admitted for further treatment at [facility]. She was kept nothing by mouth with IV fluids, nasogastric tube. She developed leukocytosis, productive cough and was treated with vancomycin and Zosyn for possible healthcare-associated pneumonia. Chest xray was unconvincing. She had small bowel obstruction, treated by general surgeon, Dr. Sandoval. Had a bowel movement. NG tube removed. Patient was resumed on her regular diet. Patient has remained stable on Keppra and diabetes was stable on Levemir. She is discharged to and [facility] for further management. White count 8.4, hemoglobin 8.4, hematocrit 25, platelet count 296. Sodium 138, potassium 3.6, chloride 105, bicarbonate 28, BUN 8, creatinine 1.1, glucose 162. Microbiology: Hemoccult stool 01/12/2017, is negative. CT chest on 01/08/2017, mild chronic pulmonary vascular congestion, ground glass infiltrates, nasogastric tube. Abdominal film on 01/11/2017, persistent small bowel dilation of moderate degree, NG tube coiled in distal esophagus. Time spent on discharge: 30 minutes.
[2017-01-12] MEDS ORDERED: HumaLOG INSULIN (NovoLOG) PER UNIT SC SCH ×2 (17:30→21:00)
--- NOTE | 2017-01-14 08:00 | REP ---
Clinical: Hypoactive bowel sounds with abdominal pain and vomiting. Findings: Acute small bowel obstruction is appreciated with dilated fluid-filled small bowel measuring up to 3.7 cm diameter and collapsed small bowel in the lower abdomen. The colon is collapsed and scattered diverticulosis noted without acute diverticulitis. No free air. No free fluid or drainable collection/abscess. Liver, spleen, pancreas, bilateral kidneys are normal for noncontrast examination. Adrenal glands demonstrate nodularity consistent with underlying benign adrenal adenomas. Pelvis demonstrates normal bladder and evidence for prior hysterectomy. Atherosclerotic changes of the aorta and vasculature noted without aneurysm. Musculoskeletal structures demonstrate age-related degenerative changes. Lung bases demonstrate chronic changes with bibasilar atelectasis. Impression: 1. Acute small-bowel obstruction with transition suggested in the lower abdomen. No free air or free fluid/drainable collection. 2. Colonic diverticulosis without acute diverticulitis. 3. Lung bases demonstrate bibasilar atelectasis. Signed by Jose Galindo MD 01/14/2017 07:51 A
== END 2017-01-12 15:55 | DRG 92 ==
LOC: M ICU 19:21 → M PCU 01-06 13:38 → M MSPAV 01-11 17:55
PROVIDERS: ADMIT Hospitalist; ATTEND General Practice
DX: G72.81 Critical illness myopathy (principal); K56.60 Unspecified intestinal obstruction; E11.9 Type 2 diabetes mellitus without complications; I10 Essential (primary) hypertension; E78.5 Hyperlipidemia, unspecified; E03.9 Hypothyroidism, unspecified; D72.829 Elevated white blood cell count, unspecified; D64.9 Anemia, unspecified; G40.909 Epilepsy, unspecified, not intractable, without status epilepticus; Z93.0 Tracheostomy status; Z79.4 Long term (current) use of insulin; Z79.899 Other long term (current) drug therapy; Z90.710 Acquired absence of both cervix and uterus; Z90.2 Acquired absence of lung [part of]; Z88.8 Allergy status to other drugs, medicaments and biological substances; Z87.891 Personal history of nicotine dependence

== ENCOUNTER 2017-01-12 14:47 | Inpatient (IN) | payer MEDICARE, OTHER ==
[~2017-01-12] VITALS: Ht 157.5 cm; Wt 82.5 kg
[~2017-01-12 14:47] MED LIST changes: +ALBU17IN INH; +AMLO10TA2 NG; +CRES10TA32 NG; +DIME50TA2 PO; +IRBE300T10 NG; +KEPP1TAB2 PO; +LASI40TA PO; +LEVE1INJ5 SC; +LORA2TAB9 PO; +NYST50SS SS; +SERO1TAB3 PO; +SYNT137T7 NG; +[UNRECOGNIZED DRUG - OTHER] INH
[2017-01-12] MEDS ORDERED: ACETAMINOPHEN TAB 650MG DOSE (2X325MG) PO PRN (15:15)
[2017-01-12] MEDS ORDERED: FLEET ENEMA PR PRN (15:15)
[2017-01-12] MEDS ORDERED: MAALOX 30 ML SUSP *UDC PO PRN (15:15)
[2017-01-12] MEDS ORDERED: GLUCOSE 4 GM CHEW TABLET PO PRN (15:45)
[2017-01-12] MEDS ORDERED: LORazepam 2 MG/ML VIAL (J2060) IV PRN (15:45)
[2017-01-12] MEDS ORDERED: DEXTROSE 50% 50 ML SYRINGE IV PRN (15:45)
[2017-01-12] MEDS ORDERED: GLUCAGON FOR INJ 1 MG VIAL (J1610) SC PRN (15:45)
[2017-01-12 16:10] VITALS: BP 150/81
[2017-01-12] MEDS: NYSTATIN 500,000 U/5 ML SUSP UDC SS SCH (18:41)
[2017-01-12] MEDS: HumaLOG INSULIN (NovoLOG) PER UNIT SC SCH ×2 (18:41→21:00)
--- NOTE | 2017-01-12 19:40 | PMRHPE ---
DATE OF ADMISSION: 01/12/2017 REASON FOR ADMISSION: Rehabilitation and multiple debilitation from seizures and being on a ventilator. HISTORY OF PRESENT ILLNESS: The patient is an 81-year-old white female, who on 12/19/2016 was traveling to [place] and playing cards in a casino when she had a seizure. She had no warning and denies any new activity or intake of food or beverage. When she was being treated for it, apparently she was having some stridor and she was intubated. Following that, she developed edema of the throat and had a tracheostomy done and was placed on a ventilator in the hospital. She was on the ventilator paralyzed in bed for greater than 10 days before being transitioned up and during this time developed a pneumonia and was placed on antibiotics. Patient was then transferred closer to home at [facility] on 01/05/2017 and has been in treatment on the acute medicine [place] and now is felt to be stable enough and able to participate in therapy enough to benefit and participate in intensive rehabilitation and patient desires to do this to facilitate return to home. PAST MEDICAL HISTORY: Includes type 2 diabetes mellitus which has not been well controlled and acute on chronic kidney disease and anemia secondary to chronic kidney disease. History of a prior transient ischemic attack (TIA) as well as the seizure. Patient with atherosclerotic cardiovascular disease has had hypertension, diastolic congestive heart failure, hyperlipidemia but also has had prior bouts of orthostatic hypotension, hypothyroidism. PAST SURGICAL HISTORY: Hysterectomy, also right middle lobe lobectomy for granuloma and the recent tracheostomy. ALLERGIES: Patient denies any allergies, however records show problem with meloxicam. FAMILY HISTORY: Noncontributory. SOCIAL HISTORY: Patient is an elderly white female who lives with her . She does not drink alcohol and does not smoke. Does not do illicit drugs. Does enjoy and spends a lot of time playing bingo and cards. She lives locally in [place] with her in a home with about 5 steps in and the bathroom and bedroom are up on the second floor with about 13 stairs between the first and second floor. REVIEW OF SYSTEMS: Negative except for things noted above. Patient denies any pain problems at this time and breathing is much better from the respiratory perspective on 10 point review. PHYSICAL EXAMINATION: GENERAL: Patient is an obese elderly white female who is of average height and 87 kg in weight. She is in no acute distress but a little bit anxious on just having transferred to the rehabilitation unit. Patient also is a little bit hard of hearing. VITAL SIGNS: Show blood pressure of 150/65, pulse 71, respiration 18, pulse oximetry 95% on room air with a temperature of 97 degrees. HEENT: Normocephalic atraumatic with wavy wilkerson hair. Scalp is intact. Pupils are equal, round, reactive to light and accommodation. Extraocular motions are intact. Hearing is mildly decreased. Oropharynx shows some thrush. Tongue is midline on extension. NECK: Supple with no bruits. Thyroid is soft and of normal size in the midline. LUNGS: Clear in all hunt with auscultation. CORONARY: Regular rate and rhythm with normal S1, S2 without S3, S4 murmurs or rubs. Patient with good profusion and upper and lower extremity with 2/4 bilateral radial pulses and good warmth in the hand, feet and good color in the upper and lower extremities. ABDOMEN: Obese. Patient has a old midline incision through the umbilicus with a mild keloid formation to it but the area is nontender as is the rest of the abdomen. No palpable masses and bowel sounds are present in all quadrants. EXTREMITIES: Upper and lower extremity with functional range of motion. NEUROLOGICALLY: Patient is alert and oriented to person, place, time, and situation. There is a little flattening of affect but in general she is pleasant and cooperative. Of note, Spanish is her first language and Turkish is a second language to her. No dysarthria was noted on her speaking. No gurgling or sounds of trouble with handling secretions. Patient demonstrating 4 to 4+/5 strength in bilateral upper extremities and 4 to 4/5 strength in the lower extremities with poor to fair endurance. Light touch and vibration intact in bilateral upper and lower extremities. Deep tendon reflexes are 1 to 2/4 in bilateral upper and lower extremities in a symmetrical pattern. Negative plantar stim and heel jerk. No clonus was found. Tone was normal in the upper and lower extremities. No new diagnostic or laboratory data has been generated by this admission however studies will be done tomorrow. Patient prior to admission of this unit does have a moderate anemia with a hemoglobin 8.4, hematocrit 25.9, and creatinine 1.10 which has been improving throughout her admission and BUN which was elevated at the start of her prior admission is now down to 8, having been 41 on her admission to [facility]. Vancomycin from this morning and treating pneumonia is good at 13.2 and urinalysis (UA) from 01/10/2017 shows 1+ protein and 1+ glucose, otherwise within normal limits. Stool occult blood is negative and blood cultures from 01/08/2017 times two are negative. Urine culture also from 01/08/2017 was negative with sputum growing gram positive cocci in pairs, chains, and clusters with a few gram negative rods and gram negative cocci and moderate white blood cells. ASSESSMENT/PLAN: 1. Multiple debilitations secondary to seizure and respiratory failure with greater than 10 days on ventilator. Patient has lost a significant amount of endurance and strength due to strict bed rest, probably about 20-30% based on reasonable studies. She at this time has difficulty with transitioning in and out of bed and the bathroom as well as very limited ambulation and needs to improve this along with the ability to climb stairs, at least 5 to be able to return home safely with the ability to get in and out of the home and ideally to regain the ability to transition from the first floor to the second floor where her bathroom and bedroom are. I do feel based on review of patient's therapy that she does have the ability to make significant gains and tolerate the acute intensive rehabilitation and should be under review for this with rehabilitation nursing and physiatry and well as medicine consult as she continues on IV antibiotic treatment of her respiratory status. I do feel the patient will benefit from the 3 hours of therapy per day. She is motivated to do so and has a fairly good expectation of being able to return home with her . 2. Pneumonia. Patient has complete her antibiotic treatment however remains on multiple pulmonary medication including albuterol and Zenhale. 3. Seizures. Patient has not had seizures noted since returning to [facility] and is continued on a treatment program with Keppra 750 mg every 12 hours. 4. Hypothyroidism. Will continue patient on Synthroid 137 mcg daily. 5. Deep venous thrombosis (DVT) prophylaxis. Will proceed with using sequential hose while in bed and AYUSH hose around the clock. The patient is able to ambulate consistently well enough that natural protection of ambulation is sufficient for her to avoid DVT's. 6. Hypertension/diastolic dysfunction. Patient will continue with Lasix for fluid control, amlodipine, irbesartan, and Crestor for the lipid element. 7. Type 2 diabetes. Patient will continue on Januvia 100 mg daily. POST ADMISSION PHYSICIAN EVALUATION: I feel patient who has multiple medical problems does need reconditioning for her debilitation due to these recent medical crises with seizure leading to respiratory failure, throat swelling and tracheostomy placement, she has almost healed the trach site over. No inflammation around it, however she does need ongoing care for that as well as her cardiopulmonary and endocrine problems including both type 2 diabetes and hypothyroidsm. I feel she does require acute intensive environment with rehabilitation nursing, physiatry as well as medicine consult in addition physical, occupation, and speech therapy which she should be able to do and benefit from at least 3 hours of therapy per day and she does express her desire to do so. I anticipate she will be able to be discharged to home with her and has a fairly good prognosis with an estimated length of stay of 10-14 days. Time spent on chart review, history and physical and documentation is greater than 70 minutes. HAN
[2017-01-12 20:00] VITALS: BP 153/72
[2017-01-12] MEDS: LEVEMIR (INSULIN DETEMIR) 1 UNITS/0.01ML SC SCH (20:11)
[2017-01-12] MEDS: levETIRAcetam 250MG TABLET (KEPPRA) PO SCH (20:11)
[2017-01-12] MEDS: ALBUTEROL 90 MCG/ACT 8GM HFA INHALER INH PRN (21:25)
[2017-01-13] MEDS: NYSTATIN 500,000 U/5 ML SUSP UDC SS SCH ×5 (00:16→23:50)
[2017-01-13 06:00] VITALS: BP 150/60
[2017-01-13] MEDS ORDERED: LEVOTHYROXINE 0.125 MG TAB (125 MCG) PO SCH (06:00)
[2017-01-13] MEDS: LEVOTHYROXINE 0.137 MG TAB (137MCG) PO SCH (06:18)
[2017-01-13 06:53] LABS: BASO % 0.4 % (0.0-1.0); EOS # 0.5 K/mm3 (0.0-0.50); EOS % 5.2 % (0.0-3.0); LARGE UNSTAINED CELL # 0.2 K/mm3 (0.0-0.4); LARGE UNSTAINED CELL % 1.7 % (0.0-4.0); LYMPH # 0.9 K/mm3 (1.5-4.5); LYMPH % 8.5 % (24.0-44.0); MEAN CORPUSCULAR HEMOGLOBIN 27.7 pg (27.0-33.0); MEAN CORPUSCULAR HGB CONC 31.6 g/dl (32.0-36.5); MEAN CORPUSCULAR VOLUME 87.4 fl (80.0-96.0); MONO # 0.6 K/mm3 (0.0-0.8); MONO % 6.5 % (0.0-5.0); NEUTROPHILS % 77.8 % (36.0-66.0); PLATELET COUNT, AUTOMATED 322 k/mm3 (150-450); RED CELL DISTRIBUTION WIDTH 13.5 % (11.5-14.5)
[2017-01-13 07:11] LABS: ALBUMIN 2.4 GM/DL (3.2-5.2); ALBUMIN/GLOBULIN RATIO 0.56 (1.00-1.93); BILIRUBIN,TOTAL 0.2 MG/DL (0.2-1.0); CREATININE FOR GFR 1.09 MG/DL (0.55-1.02); POTASSIUM SERUM 3.7 MEQ/L (3.5-5.1); TOTAL PROTEIN 6.7 GM/DL (6.4-8.2)
[2017-01-13] MEDS: HumaLOG INSULIN (NovoLOG) PER UNIT SC SCH ×4 (08:38→21:00)
[2017-01-13] MEDS ORDERED: OMEPRAZOLE 20 MG CAP PO SCH (09:00)
[2017-01-13] MEDS: LEVEMIR (INSULIN DETEMIR) 1 UNITS/0.01ML SC SCH ×2 (10:33→21:02)
[2017-01-13] MEDS: IRBESARTAN 150 MG TAB PO SCH (10:37)
[2017-01-13] MEDS: levETIRAcetam 250MG TABLET (KEPPRA) PO SCH ×2 (10:38→21:01)
[2017-01-13] MEDS: amLODIPine 10 MG TAB PO SCH (10:38)
[2017-01-13] MEDS: FUROSEMIDE 40 MG TAB PO SCH (10:38)
[2017-01-13] MEDS: ROSUVASTATIN 10 MG TAB (CRESTOR) PO SCH (10:39)
[2017-01-13] MEDS: SITagliptin 50 MG TAB (JANUVIA) PO SCH (10:39)
[2017-01-13] MEDS: SPIRONOLACTONE 25 MG TAB PO SCH (10:39)
--- NOTE | 2017-01-13 12:09 | IPNPDOC ---
Pmo Consultant Progress Note DATE OF SERVICE: 01/13/17 DATE OF ADMISSION: January 12, 2017 at 16:00 INPATIENT REHABILITATION ADMISSION DAY: #1 SUBJECTIVE: Patient is a 81-year-old white female with debilitation secondary to greater in 10 days on ventilator and 2 weeks plus of strict bed rest after his seizure and the development of laryngeal edema and tracheostomy. Nursing has reported some conflict between patient and her and patient seems to be showing some depression since admission. Patient participation therapy will be reviewed at team rounds today. Patient without specific complaints other than she doesn't like the Pureed diet with Merom thicken liquids. ALLERGIES: See Below MEDICATIONS: Reviewed, see below. OBJECTIVE: VITAL SIGNS: Please see below. PHYSICAL EXAMINATION: GENERAL: Obese elderly white female with apparent flattening of affect and sparse speech. Patient not eating much of her meal this morning by the time I came to examine her. HEENT: Normocephalic/atraumatic with tracheostomy site healing well without drainage, inflammation, erythema or any patency at this time. CARDIOVASCULAR: Regular rate and rhythm with normal S1 and S2. 2/4 radial pulses. LUNGS: All hunt clear to auscultation. ABDOMEN: Obese, normal bowel sounds in all quadrants. NEUROLOGICAL: Patient is alert and well oriented. Motor is unchanged. SKIN: Trach site as described above. LABORATORY DATA: Reviewed. Please see below. MICROBIOLOGY: Please see below. IMAGING: No new imaging. DVT prophylaxis ordered?: Just AYUSH hose and ambulation. ASSESSMENT AND PLAN: 1. Debilitation: Patient is starring program of physical, occupational and speech therapies today. She has some expression of fatigue but this is what we need to work past to rebuild her strength, endurance and self-care skills. Team will review patient's initial evaluations at team rounds today. 2. Seizures: None observed recently patient continues on Keppra. 3. Mood: We will continue to observe that and consider medications and/or psychiatric management. 4. Anemia: H&H is 9.4 and 28.4% and we will periodically track this. 5. Hypoalbuminemia: Albumin level is 2.4, so it will be important to encourage patient to improve diet especially protein diet. 6. Diabetes: Fasting blood sugar 192 this morning and finger sticks have ranged from 133-208. We will continue observe diabetes stability on this regimen and adapted as needed. TIME SPENT: Chart Review, examination and documentation required greater than 35 minutes. Allergies Coded Allergies: Meloxicam (Verified Allergy, Unknown, 11/15/12) Vital Signs Vital Signs Date Time Temp Pulse Resp B/P (MAP) Pulse Ox O2 Delivery O2 Flow Rate FiO2 01/13/17 10:38 68 176/73 01/13/17 08:51 Nasal Cannula 2.0 01/13/17 06:10 95 01/13/17 06:00 99.4 16 Laboratory Data CBC/BMP Laboratory Tests 01/13/17 06:21 Red Blood Count 3.41 L, Mean Corpuscular Volume 87.4, Mean Corpuscular Hemoglobin 27.7, Mean Corpuscular Hemoglobin Concent 31.6 L, Red Cell Distribution Width 13.5, Neutrophils (%) (Auto) 77.8 H, Lymphocytes (%) (Auto) 8.5 L, Monocytes (%) (Auto) 6.5 H, Eosinophils (%) (Auto) 5.2 H, Basophils (%) ( Auto) 0.4, Neutrophils # (Auto) 7.0, Lymphocytes # (Auto) 0.9 L, Monocytes # ( Auto) 0.6, Eosinophils # (Auto) 0.5, Basophils # (Auto) 0.0, Calcium Level 9.0, Aspartate Amino Transf (AST/SGOT) 8 L, Alanine Aminotransferase (ALT/SGPT) 14, Alkaline Phosphatase 96, Total Bilirubin 0.2, Total Protein 6.7, Albumin 2.4 L Labs 24H Laboratory Tests 2 01/12/17 18:31: Bedside Glucose (Misc Panel) 155H 01/12/17 20:38: Urine Appearance CLEAR, Urine Color YELLOW, Urine pH 7.0, Urine Specific Brady 1.011, Urine Protein NEGATIVE, Urine Glucose (UA) NEGATIVE, Urine Ketones NEGATIVE, Urine Urobilinogen 0.2, Urine Bilirubin NEGATIVE, Urine Leukocyte Esterase TRACEH, Urine Blood NEGATIVE, Urine Nitrite NEGATIVE, Urine WBC (Auto) 6H, Urine RBC (Auto) 3, Urine Hyaline Casts (Auto) 0, Urine Bacteria (Auto) 1+H, Urine Squamous Epithelial Cells 0, Urine Transitional Epithelial Cells 1, Urine Mucus (Auto) SMALL, Urine Sperm (Auto) 01/13/17 05:55: Bedside Glucose (Misc Panel) 203H 01/13/17 06:21: White Blood Count 9.0, Red Blood Count 3.41L, Hemoglobin 9.4L, Hematocrit 29.8L , Mean Corpuscular Volume 87.4, Mean Corpuscular Hemoglobin 27.7, Mean Corpuscular Hemoglobin Concent 31.6L, Red Cell Distribution Width 13.5, Platelet Count 322, Neutrophils (%) (Auto) 77.8H, Lymphocytes (%) (Auto) 8.5L, Monocytes (%) (Auto) 6.5H, Eosinophils (%) (Auto) 5.2H, Basophils (%) (Auto) 0.4 , Neutrophils # (Auto) 7.0, Lymphocytes # (Auto) 0.9L, Monocytes # (Auto) 0.6, Eosinophils # (Auto) 0.5, Basophils # (Auto) 0.0, Large Unclassified Cells % 1.7 , Large Unclassified Cells # 0.2, Anion Gap 6L, Glomerular Filtration Rate 51.0 , Blood Urea Nitrogen 6L, Creatinine 1.09H, Sodium Level 139, Potassium Level 3.7, Chloride Level 105, Carbon Dioxide Level 28, Calcium Level 9.0, Aspartate Amino Transf (AST/SGOT) 8L, Alanine Aminotransferase (ALT/SGPT) 14, Alkaline Phosphatase 96, Total Bilirubin 0.2, Total Protein 6.7, Albumin 2.4L, Albumin/ Globulin Ratio 0.56L 01/13/17 11:44: Bedside Glucose (Misc Panel) 133H Current Medications Current Medications Current Medications Acetaminophen (Tylenol Tab) 650 mg Q6HP PRN PO PAIN OR FEVER; Start 01/12/17 at 15:15; Stop 02/11/17 at 15:14 Al Hydrox/Mg Hydrox/Simethicone (Mylanta) 30 ml Q4HP PRN PO DYSPEPSIA; Start at 15:15; Stop 02/11/17 at 15:14 Albuterol Sulfate (Proventil, Ventolin Hfa) 2 puff Q4HP PRN INH SHORTNESS OF BREATH Last administered on 01/12/17 21:25; Start 01/12/17 at 15:45; Stop 02/11 at 15:44 Amlodipine Besylate (Norvasc) 10 mg DAILY PO Last administered on 01/13/17 10: 38; Start 01/13/17 at 09:00; Stop 02/12/17 at 08:59 Dextrose (Dextrose 50%) 25 ml ASDIRECTED PRN IV SEE LABEL COMMENTS; Start 01/12 at 15:45; Stop 02/11/17 at 15:44 Dimenhydrinate (Dramamine) 25 mg Q4HP PRN PO NAUSEA OR VOMITING; Start at 15:45; Stop 02/11/17 at 15:44 Furosemide (Lasix) 40 mg DAILY PO Last administered on 01/13/17 10:38; Start at 09:00; Stop 02/12/17 at 08:59 Glucagon (Glucagon) 1 mg ASDIRECTED PRN SC SEE LABEL COMMENTS; Start 01/12/17 at 15:45; Stop 02/11/17 at 15:44 Glucose (Glucose) 16 GM ASDIRECTED PRN PO SEE LABEL COMMENTS; Start 01/12/17 at 15:45; Stop 02/11/17 at 15:44 Insulin Detemir (Levemir Insulin) 6 units BID SC Last administered on 01/13/17 10:33; Start 01/12/17 at 21:00; Stop 02/11/17 at 20:59 Insulin Human Lispro (HumaLOG INSULIN) See Protocol Table AC SC Last administered on 01/13/17 08:38; Start 01/12/17 at 17:30; Stop 02/11/17 at 17:29 Insulin Human Lispro (HumaLOG INSULIN) See Protocol Table QHS SC ; Start at 21:00; Stop 02/11/17 at 20:59 Irbesartan (Avapro) 300 mg DAILY PO Last administered on 01/13/17 10:37; Start 01/13/17 at 09:00; Stop 02/12/17 at 08:59 Levetiracetam (Keppra) 750 mg BID PO Last administered on 01/13/17 10:38; Start 01/12/17 at 21:00; Stop 02/11/17 at 20:59 Levothyroxine Sodium (Synthroid) 0.137 mg DAILY@06 PO ; Start 01/13/17 at 06:00; Stop 01/13/17 at 06:00; Status DC Levothyroxine Sodium (Synthroid) 0.137 mg DAILY@06 PO Last administered on 06:18; Start 01/13/17 at 06:00; Stop 02/12/17 at 05:59 Lorazepam (Ativan) 1 mg Q1HP PRN IV SEIZURES; Start 01/12/17 at 15:45; Stop 01/19/17 at 15:44 Magnesium Hydroxide (Milk Of Magnesia) 30 ml DAILYPRN PRN PO CONSTIPATION; Start 01/12/17 at 15:15; Stop 02/11/17 at 15:14 Miscellaneous (Unresolved Patient Own Med Order) SEE LABEL COMMENTS UNRESOLVED XX ; Start 01/13/17 at 00:01; Stop 02/12/17 at 00:00 Non-Formulary Medication Zenhale 4 puffs inha... BID INH ; Start 01/12/17 at 21: 00; Stop 02/11/17 at 20:59; Status UNV Nystatin (Mycostatin) 5 ml Q6H SS Last administered on 01/13/17 06:18; Start at 18:00; Stop 01/19/17 at 17:59 Omeprazole (PriLOSEC) 20 mg DAILY PO ; Start 01/13/17 at 09:00; Stop 02/12/17 at 08:59; Status UNV Rosuvastatin Calcium (Crestor) 10 mg DAILY PO Last administered on 01/13/17 10: 39; Start 01/13/17 at 09:00; Stop 02/12/17 at 08:59 Sitagliptin Phosphate (Januvia) 100 mg DAILY PO Last administered on 01/13/17 10:39; Start 01/13/17 at 09:00; Stop 02/12/17 at 08:59 Sodium Biphosphate/ Sodium Phosphate (Fleet Enema) 1 ea DAILYPRN PRN PA CONSTIPATION; Start 01/12/17 at 15:15; Stop 02/11/17 at 15:14 Spironolactone (Aldactone) 25 mg QAM PO Last administered on 01/13/17 10:39; Start 01/13/17 at 09:00; Stop 02/12/17 at 08:59 PATRICIA ARMENTA MD Jan 13, 2017 12:09
--- NOTE | 2017-01-13 12:19 | IPNPDOC ---
Subjective Date Seen The patient was seen on 01/13/17. Subjective Chief Complaint/HPI The patient is a 81-year-old female admitted with a reason for visit of Respiratory Failure. Events since last encounter Pt ambulating in hallway with PT. Feeling fatigued Some SOB with exeertion, resolved with sitting down. ENT: Denies: Head Aches, Dysphagia Cardiovascular: Denies: Chest Pain, Palpitations, Orthopnea, Paroxysmal Noc. Dyspnea, Lt Headedness Gastrointestinal: Denies: Nausea, Vomiting, Abdominal Pain, Diarrhea, Constipation Genitourinary: Denies: Dysuria, Frequency, Incontinence, Retention Objective Physical Examination General Exam: Positive: Alert Eye Exam: Positive: PERRLA ENT Exam: Positive: Atraumatic Chest Exam: Positive: Clear to auscultation, Normal air movement Heart Exam: Positive: Rate Normal, Regular Rhythm, Normal S1, Normal S2, Negative: Murmurs, Rubs Skin Exam: Positive: Nl turgor and temperature Assessment /Plan Problems (1) Respiratory failure Problem Text: * ARU as per Vincent. * PT/OT/ST (2) Seizure Status: Chronic Problem Text: * Keppra 750mg BID (3) CKD (chronic kidney disease) Status: Chronic Problem Text: * SCr 1.09 * Monitor (4) Anemia in CKD (chronic kidney disease) Status: Chronic Problem Text: * Hgb 9.4 stable, monitor (5) Hypertension Status: Chronic Problem Text: * Cont Norvasc with hold paramters * Irbesartan (6) Diastolic CHF Status: Chronic Problem Text: * po Lasix/Aldactone (7) Hypothyroidism Status: Acute (8) Diabetes mellitus type II, uncontrolled Status: Chronic Problem Text: * Levemir * SSI * Januvia (9) Dyslipidemia Status: Chronic Problem Text: * Cont statin Plan/VTE VTE Prophylaxis Ordered?: Yes (SCD/TEDS) Disposition as per ARU VS, I&O, 24H, Jenny Vital Signs/I&O Vital Signs Date Time Temp Pulse Resp B/P (MAP) Pulse Ox O2 Delivery O2 Flow Rate FiO2 01/13/17 10:38 68 176/73 01/13/17 08:51 Nasal Cannula 2.0 01/13/17 06:10 95 01/13/17 06:00 99.4 16 I&O- Last 24 Hours up to 6 AM 01/13/17 06:00 Intake Total 40 ml Output Total 500 ml Balance -460 ml Laboratory Data 24H LABS Laboratory Tests 2 01/12/17 18:31: Bedside Glucose (Misc Panel) 155H 01/12/17 20:38: Urine Appearance CLEAR, Urine Color YELLOW, Urine pH 7.0, Urine Specific Endeavor 1.011, Urine Protein NEGATIVE, Urine Glucose (UA) NEGATIVE, Urine Ketones NEGATIVE, Urine Urobilinogen 0.2, Urine Bilirubin NEGATIVE, Urine Leukocyte Esterase TRACEH, Urine Blood NEGATIVE, Urine Nitrite NEGATIVE, Urine WBC (Auto) 6H, Urine RBC (Auto) 3, Urine Hyaline Casts (Auto) 0, Urine Bacteria (Auto) 1+H, Urine Squamous Epithelial Cells 0, Urine Transitional Epithelial Cells 1, Urine Mucus (Auto) SMALL, Urine Sperm (Auto) 01/13/17 05:55: Bedside Glucose (Misc Panel) 203H 01/13/17 06:21: White Blood Count 9.0, Red Blood Count 3.41L, Hemoglobin 9.4L, Hematocrit 29.8L , Mean Corpuscular Volume 87.4, Mean Corpuscular Hemoglobin 27.7, Mean Corpuscular Hemoglobin Concent 31.6L, Red Cell Distribution Width 13.5, Platelet Count 322, Neutrophils (%) (Auto) 77.8H, Lymphocytes (%) (Auto) 8.5L, Monocytes (%) (Auto) 6.5H, Eosinophils (%) (Auto) 5.2H, Basophils (%) (Auto) 0.4 , Neutrophils # (Auto) 7.0, Lymphocytes # (Auto) 0.9L, Monocytes # (Auto) 0.6, Eosinophils # (Auto) 0.5, Basophils # (Auto) 0.0, Large Unclassified Cells % 1.7 , Large Unclassified Cells # 0.2, Anion Gap 6L, Glomerular Filtration Rate 51.0 , Blood Urea Nitrogen 6L, Creatinine 1.09H, Sodium Level 139, Potassium Level 3.7, Chloride Level 105, Carbon Dioxide Level 28, Calcium Level 9.0, Aspartate Amino Transf (AST/SGOT) 8L, Alanine Aminotransferase (ALT/SGPT) 14, Alkaline Phosphatase 96, Total Bilirubin 0.2, Total Protein 6.7, Albumin 2.4L, Albumin/ Globulin Ratio 0.56L 01/13/17 11:44: Bedside Glucose (Misc Panel) 133H CBC/BMP Laboratory Tests 01/13/17 06:21 Red Blood Count 3.41 L, Mean Corpuscular Volume 87.4, Mean Corpuscular Hemoglobin 27.7, Mean Corpuscular Hemoglobin Concent 31.6 L, Red Cell Distribution Width 13.5, Neutrophils (%) (Auto) 77.8 H, Lymphocytes (%) (Auto) 8.5 L, Monocytes (%) (Auto) 6.5 H, Eosinophils (%) (Auto) 5.2 H, Basophils (%) ( Auto) 0.4, Neutrophils # (Auto) 7.0, Lymphocytes # (Auto) 0.9 L, Monocytes # ( Auto) 0.6, Eosinophils # (Auto) 0.5, Basophils # (Auto) 0.0, Calcium Level 9.0, Aspartate Amino Transf (AST/SGOT) 8 L, Alanine Aminotransferase (ALT/SGPT) 14, Alkaline Phosphatase 96, Total Bilirubin 0.2, Total Protein 6.7, Albumin 2.4 L Kelly Knox Jan 13, 2017 12:19
[2017-01-13] MEDS ORDERED: IPRATROPIUM 0.5MG/ALBUTEROL 2.5MG INH SOL UD 3ML (DUONEB)(J7620) NEB PRN (13:45)
[2017-01-13 14:00] VITALS: BP_SYST 124; BP_SYST 169; BP_SYST 186; BP_DIAS 72; BP_DIAS 74; BP_DIAS 79
[2017-01-13] MEDS: IPRATROPIUM 0.5MG/ALBUTEROL 2.5MG INH SOL UD 3ML (DUONEB)(J7620) NEB SCH ×2 (14:55→18:44)
[2017-01-13] MEDS: ALBUTEROL 90 MCG/ACT 8GM HFA INHALER INH PRN (18:39)
[2017-01-13 18:44] VITALS: BP 158/70
[2017-01-13 21:00] VITALS: BP 157/69
[2017-01-13 21:03] VITALS: BP 181/77
[2017-01-13 21:06] VITALS: BP 144/65
[2017-01-14] MEDS: IPRATROPIUM 0.5MG/ALBUTEROL 2.5MG INH SOL UD 3ML (DUONEB)(J7620) NEB SCH ×4 (00:26→20:56)
[2017-01-14 06:00] VITALS: BP 131/68
[2017-01-14 06:03] VITALS: BP 149/67
[2017-01-14 06:06] VITALS: BP 131/61
[2017-01-14] MEDS: NYSTATIN 500,000 U/5 ML SUSP UDC SS SCH ×4 (06:14→23:49)
[2017-01-14] MEDS: LEVOTHYROXINE 0.137 MG TAB (137MCG) PO SCH (06:14)
[2017-01-14] MEDS ORDERED: VARIBAR PUDDING 40% w/v 230ML TUBE As Ordered ONE (07:55)
[2017-01-14] MEDS ORDERED: VARIBAR NECTAR 40% w/v 240ML SUSP BTL As Ordered ONE (07:55)
[2017-01-14] MEDS ORDERED: E-Z-PAQUE 96% w/w SUSP 176GM BTL As Ordered ONE (07:55)
[2017-01-14] MEDS: HumaLOG INSULIN (NovoLOG) PER UNIT SC SCH ×4 (08:55→21:00)
[2017-01-14] MEDS: LEVEMIR (INSULIN DETEMIR) 1 UNITS/0.01ML SC SCH ×2 (08:55→21:10)
[2017-01-14] MEDS: levETIRAcetam 250MG TABLET (KEPPRA) PO SCH ×2 (08:56→21:06)
[2017-01-14] MEDS: SITagliptin 50 MG TAB (JANUVIA) PO SCH (08:57)
[2017-01-14] MEDS: ROSUVASTATIN 10 MG TAB (CRESTOR) PO SCH (08:57)
[2017-01-14] MEDS: SPIRONOLACTONE 25 MG TAB PO SCH (08:57)
[2017-01-14] MEDS: amLODIPine 10 MG TAB PO SCH (08:57)
[2017-01-14] MEDS: FUROSEMIDE 40 MG TAB PO SCH (08:58)
[2017-01-14] MEDS: IRBESARTAN 150 MG TAB PO SCH (08:58)
--- NOTE | 2017-01-14 09:56 | IPNPDOC ---
[employer] Progress Note DATE OF SERVICE: 01/14/17 DATE OF ADMISSION: January 12, 2017 at 16:00 INPATIENT REHABILITATION ADMISSION DAY: #2 SUBJECTIVE: Patient is a 81-year-old white female with debilitation secondary to seizure, respiratory failure and diabetes mellitus. Patient continuing with PT, OT and speech therapy. Patient had cookie swallow test this morning and passed the test and speech therapy now recommending upgrading to regular diet with thin liquids. Patient expresses happiness about this and has no specific complaints today except for feeling some trouble breathing. Speech therapist doing the swallow study today has known the patient and her family for a number of years and notes that the verbal interaction between the patient and her which we have perceived somewhat negatively is there are normal and has not seemed to affect adversely their interactions over those years that the therapist has known them. ALLERGIES: See Below MEDICATIONS: Reviewed, see below. OBJECTIVE: VITAL SIGNS: Please see below. PHYSICAL EXAMINATION: GENERAL: Obese elderly white female who is alert and fairly well oriented. Speech is fairly clear and appropriate though slightly concrete consistent with Azeri as a second language. HEENT: Normocephalic/atraumatic with continued healing and near closure of tracheostomy site. No drainage or inflammation seen at ostomy site. CARDIOVASCULAR: Regular rate and rhythm with normal S1 and S2. Good radial pulses. LUNGS: All hunt clear to auscultation. Patient on O2 by nasal cannula maintaining good O2 saturations on low rates of flow. ABDOMEN: Obese with normal bowel sounds in all quadrants. NEUROLOGICAL: Patient with fair to good strength showing some increase in endurance but she does wear out and is very tired after completing therapy. SKIN: Healing trach site. LABORATORY DATA: Reviewed. Please see below. MICROBIOLOGY: Please see below. IMAGING: Cookie swallow shows patient able to handle all textures and thicknesses of liquids. DVT prophylaxis ordered?: Patient using AYUSH hose and ambulation. ASSESSMENT AND PLAN: 1. Debilitation: Patient is showing good effort in therapies and is fatigued at the end of sessions. Hopefully advancing her diet will allow for better nutritional support and muscle building and endurance increasing with the therapies. 2. Dysphagia: Patient did very well on testing today. Patient will be advanced to a consistent carbohydrate diet with thin liquids. Patient very happy about this and hopefully this will improve nutrition. 3. Respiratory: Patient with good pulse oximetry and moving air well in all lung hunt. We will continue to monitor this. 4. Diabetes mellitus: We'll need to watch medications and adjust accordingly as patient is likely to start eating more as she found the pured diet very unappetizing. TIME SPENT: Chart Review, examination and documentation required greater than 25 minutes. Allergies Coded Allergies: Meloxicam (Verified Allergy, Unknown, 11/15/12) Vital Signs Vital Signs Date Time Temp Pulse Resp B/P (MAP) Pulse Ox O2 Delivery O2 Flow Rate FiO2 01/14/17 08:58 140/61 01/14/17 08:57 59 01/14/17 06:00 98.2 18 95 Nasal Cannula 2.0 Laboratory Data Labs 24H Laboratory Tests 2 01/13/17 11:44: Bedside Glucose (Misc Panel) 133H 01/13/17 17:16: Bedside Glucose (Misc Panel) 163H 01/13/17 20:54: Bedside Glucose (Misc Panel) 217H 01/14/17 06:38: Bedside Glucose (Misc Panel) 178H Current Medications Current Medications Current Medications Acetaminophen (Tylenol Tab) 650 mg Q6HP PRN PO PAIN OR FEVER; Start 01/12/17 at 15:15; Stop 02/11/17 at 15:14 Al Hydrox/Mg Hydrox/Simethicone (Mylanta) 30 ml Q4HP PRN PO DYSPEPSIA; Start at 15:15; Stop 02/11/17 at 15:14 Albuterol Sulfate (Proventil, Ventolin Hfa) 2 puff Q4HP PRN INH SHORTNESS OF BREATH Last administered on 01/13/17 18:39; Start 01/12/17 at 15:45; Stop at 15:44 Albuterol/ Ipratropium (Duoneb (Ipr 0.5mg/Alb 2.5mg)) 3 ml Q2HP PRN NEB SOB/ WHEEZING; Start 01/13/17 at 13:45; Stop 02/12/17 at 13:44 Albuterol/ Ipratropium (Duoneb (Ipr 0.5mg/Alb 2.5mg)) 3 ml RQ6H NEB Last administered on 01/13/17 14:55; Start 01/13/17 at 14:00; Stop 02/12/17 at 13:59 Amlodipine Besylate (Norvasc) 10 mg DAILY PO Last administered on 01/14/17 08: 57; Start 01/13/17 at 09:00; Stop 02/12/17 at 08:59 Dextrose (Dextrose 50%) 25 ml ASDIRECTED PRN IV SEE LABEL COMMENTS; Start 01/12 at 15:45; Stop 02/11/17 at 15:44; Status Cancel Dimenhydrinate (Dramamine) 25 mg Q4HP PRN PO NAUSEA OR VOMITING; Start at 15:45; Stop 02/11/17 at 15:44 Furosemide (Lasix) 40 mg DAILY PO Last administered on 01/14/17 08:58; Start at 09:00; Stop 02/12/17 at 08:59 Glucagon (Glucagon) 1 mg ASDIRECTED PRN SC SEE LABEL COMMENTS; Start 01/12/17 at 15:45; Stop 02/11/17 at 15:44 Glucose (Glucose) 16 GM ASDIRECTED PRN PO SEE LABEL COMMENTS; Start 01/12/17 at 15:45; Stop 02/11/17 at 15:44 Insulin Detemir (Levemir Insulin) 6 units BID SC Last administered on 01/14/17 08:55; Start 01/12/17 at 21:00; Stop 02/11/17 at 20:59 Insulin Human Lispro (HumaLOG INSULIN) See Protocol Table AC SC Last administered on 01/14/17 08:55; Start 01/12/17 at 17:30; Stop 02/11/17 at 17:29 Insulin Human Lispro (HumaLOG INSULIN) See Protocol Table QHS SC ; Start at 21:00; Stop 02/11/17 at 20:59 Irbesartan (Avapro) 300 mg DAILY PO Last administered on 01/14/17 08:58; Start 01/13/17 at 09:00; Stop 02/12/17 at 08:59 Levetiracetam (Keppra) 750 mg BID PO Last administered on 01/14/17 08:56; Start 01/12/17 at 21:00; Stop 02/11/17 at 20:59 Levothyroxine Sodium (Synthroid) 0.137 mg DAILY@06 PO ; Start 01/13/17 at 06:00; Stop 01/13/17 at 06:00; Status DC Levothyroxine Sodium (Synthroid) 0.137 mg DAILY@06 PO Last administered on 06:14; Start 01/13/17 at 06:00; Stop 02/12/17 at 05:59 Lorazepam (Ativan) 1 mg Q1HP PRN IV SEIZURES; Start 01/12/17 at 15:45; Stop 01/19/17 at 15:44; Status Cancel Magnesium Hydroxide (Milk Of Magnesia) 30 ml DAILYPRN PRN PO CONSTIPATION; Start 01/12/17 at 15:15; Stop 02/11/17 at 15:14 Miscellaneous (Unresolved Patient Own Med Order) SEE LABEL COMMENTS UNRESOLVED XX ; Start 01/13/17 at 00:01; Stop 02/12/17 at 00:00 Non-Formulary Medication [place] 4 puffs inha... BID INH ; Start 01/12/17 at 21: 00; Stop 02/11/17 at 20:59; Status UNV Nystatin (Mycostatin) 5 ml Q6H SS Last administered on 01/14/17 06:14; Start at 18:00; Stop 01/19/17 at 17:59 Omeprazole (PriLOSEC) 20 mg DAILY PO ; Start 01/13/17 at 09:00; Stop 02/12/17 at 08:59; Status UNV Rosuvastatin Calcium (Crestor) 10 mg DAILY PO Last administered on 01/14/17 08: 57; Start 01/13/17 at 09:00; Stop 02/12/17 at 08:59 Sitagliptin Phosphate (Januvia) 100 mg DAILY PO Last administered on 01/14/17 08:57; Start 01/13/17 at 09:00; Stop 02/12/17 at 08:59 Sodium Biphosphate/ Sodium Phosphate (Fleet Enema) 1 ea DAILYPRN PRN [place] CONSTIPATION; Start 01/12/17 at 15:15; Stop 02/11/17 at 15:14 Spironolactone (Aldactone) 25 mg QAM PO Last administered on 01/14/17 08:57; Start 01/13/17 at 09:00; Stop 02/12/17 at 08:59 PATRICIA ARMENTA MD Jan 14, 2017 09:56
--- NOTE | 2017-01-14 11:52 | IPNPDOC ---
Subjective Date Seen The patient was seen on 01/14/17. Subjective Chief Complaint/HPI The patient is a 81-year-old female admitted with a reason for visit of Respiratory Failure. Events since last encounter Pt reporting SOB today. Worse when she is active, better when she is resting. denies cough. Denies CP. No abdominal pain, urinary c/o. Denies edema. Pt had swallow eval today and was upgraded diet to reg/thin liq. Objective Physical Examination General Exam: Positive: Alert Eye Exam: Positive: PERRLA ENT Exam: Positive: Atraumatic Chest Exam: Positive: Clear to auscultation, Normal air movement Heart Exam: Positive: Rate Normal, Regular Rhythm, Normal S1, Normal S2, Negative: Murmurs, Rubs Extremity Exam: Positive: Normal pulses, Negative: Clubbing, Cyanosis, Edema Skin Exam: Positive: Nl turgor and temperature Assessment /Plan Problems (1) Respiratory failure Problem Text: * ARU as per Vincent. * PT/OT/ST * Pt reporting SOB today. Pt is afebrile. * Update labs and CXR. * Cont with nebs. * request I/S. (2) Seizure Status: Chronic Problem Text: * Keppra 750mg BID (3) CKD (chronic kidney disease) Status: Chronic Problem Text: * SCr 1.09 * Monitor (4) Anemia in CKD (chronic kidney disease) Status: Chronic Problem Text: * Hgb 9.4 stable, monitor (5) Hypertension Status: Chronic Problem Text: * Cont Norvasc with hold paramters * Irbesartan (6) Diastolic CHF Status: Chronic Problem Text: * po Lasix/Aldactone (7) Hypothyroidism Status: Acute (8) Diabetes mellitus type II, uncontrolled Status: Chronic Problem Text: * Levemir * SSI * Januvia (9) Dyslipidemia Status: Chronic Problem Text: * Cont statin Plan/VTE VTE Prophylaxis Ordered?: Yes (SCD/TEDS) VS, I&O, 24H, Fishbone Vital Signs/I&O Vital Signs Date Time Temp Pulse Resp B/P (MAP) Pulse Ox O2 Delivery O2 Flow Rate FiO2 01/14/17 08:58 140/61 01/14/17 08:57 59 01/14/17 08:00 Nasal Cannula 2.0 01/14/17 06:00 98.2 18 95 I&O- Last 24 Hours up to 6 AM 01/14/17 06:00 Intake Total 1640 ml Output Total 600 ml Balance 1040 ml Laboratory Data 24H LABS Laboratory Tests 2 01/13/17 17:16: Bedside Glucose (Misc Panel) 163H 01/13/17 20:54: Bedside Glucose (Misc Panel) 217H 01/14/17 06:38: Bedside Glucose (Misc Panel) 178H 01/14/17 11:22: Bedside Glucose (Misc Panel) 175H Kelly Knox Jan 14, 2017 11:52
[2017-01-14 13:41] LABS: BASO % 0.6 % (0.0-1.0); EOS # 0.7 K/mm3 (0.0-0.50); EOS % 9.2 % (0.0-3.0); LARGE UNSTAINED CELL # 0.2 K/mm3 (0.0-0.4); LARGE UNSTAINED CELL % 2.5 % (0.0-4.0); LYMPH # 1.8 K/mm3 (1.5-4.5); LYMPH % 21.4 % (24.0-44.0); MEAN CORPUSCULAR HEMOGLOBIN 28.1 pg (27.0-33.0); MEAN CORPUSCULAR VOLUME 85.2 fl (80.0-96.0); MONO # 0.9 K/mm3 (0.0-0.8); MONO % 11.3 % (0.0-5.0); NEUTROPHILS # 4.2 K/mm3 (1.8-7.7); NEUTROPHILS % 55.1 % (36.0-66.0); PLATELET COUNT, AUTOMATED 291 k/mm3 (150-450); RED CELL DISTRIBUTION WIDTH 13.7 % (11.5-14.5); WHITE BLOOD COUNT 7.6 K/mm3 (4.0-10.0)
--- NOTE | 2017-01-14 13:44 | REP ---
Dyspnea. Comparison: 01/10/2017. Right basilar opacities are noted status quo. There is blunting of the right CP angle which has developed. The heart has enlarged, but accentuated by AP technique. The interstitial markings are increased, but accentuated by AP technique. The left sided subclavian central venous catheter has been removed. The osseous structures are stable and intact. IMPRESSION: Chronic changes as described above with other findings. I cannot exclude the possibility of a slight right pleural effusion although it is doubtful. PA and lateral views of the chest recommended. Signed by Alejandro Rogel DO 01/14/2017 03:23 P
[2017-01-14 14:15] VITALS: BP_SYST 129; BP_SYST 136; BP_SYST 143; BP_DIAS 56; BP_DIAS 59; BP_DIAS 67
[2017-01-14 14:17] LABS: ALBUMIN 2.5 GM/DL (3.2-5.2); ALBUMIN/GLOBULIN RATIO 0.58 (1.00-1.93); BILIRUBIN,TOTAL 0.2 MG/DL (0.2-1.0); CALCIUM LEVEL 9.4 MG/DL (8.8-10.2); CREATININE FOR GFR 1.24 MG/DL (0.55-1.02); POTASSIUM SERUM 3.6 MEQ/L (3.5-5.1); TOTAL PROTEIN 6.8 GM/DL (6.4-8.2)
--- NOTE | 2017-01-14 16:48 | REP ---
COOKIE SWALLOW: The procedure was performed under the direct supervision of Dr. Hager. The procedure was performed with Karin Robertson from speech pathology present. 5 mL aliquots of nectar pudding and thin consistency barium was administered. There is no evidence of penetration aspiration. A detailed report of this examination will be provided by speech pathology. 37 seconds of fluoroscopy time was utilized for this procedure. Reviewed by JAMES Mercado 01/17/2017 03:11 PEdited and Signed by Vinh Hager MD 01/17/2017 04:51 P
[2017-01-14 20:38] VITALS: BP_SYST 122; BP_SYST 134; BP_SYST 135; BP_DIAS 60; BP_DIAS 62; BP_DIAS 63
[2017-01-14 20:41] VITALS: BP_SYST 122; BP_SYST 134; BP_SYST 135; BP_DIAS 60; BP_DIAS 62; BP_DIAS 63
[2017-01-14] MEDS ORDERED: MOMETASONE INH SCH (21:00)
[2017-01-14] MEDS ORDERED: FORMOTEROL INH SCH (21:00)
[2017-01-15] MEDS: IPRATROPIUM 0.5MG/ALBUTEROL 2.5MG INH SOL UD 3ML (DUONEB)(J7620) NEB SCH ×4 (02:00→19:44)
[2017-01-15 05:13] VITALS: BP_SYST 131; BP_SYST 135; BP_DIAS 61; BP_DIAS 62
[2017-01-15] MEDS: LEVOTHYROXINE 0.137 MG TAB (137MCG) PO SCH (05:47)
[2017-01-15] MEDS: NYSTATIN 500,000 U/5 ML SUSP UDC SS SCH ×4 (05:48→23:03)
[2017-01-15] MEDS: HumaLOG INSULIN (NovoLOG) PER UNIT SC SCH ×4 (08:26→21:31)
[2017-01-15] MEDS: SITagliptin 50 MG TAB (JANUVIA) PO SCH (08:27)
[2017-01-15] MEDS: FUROSEMIDE 40 MG TAB PO SCH (08:27)
[2017-01-15] MEDS: amLODIPine 10 MG TAB PO SCH (08:27)
[2017-01-15] MEDS: ROSUVASTATIN 10 MG TAB (CRESTOR) PO SCH (08:27)
[2017-01-15] MEDS: ENOXAPARIN 40 MG/0.4 ML SYRINGE (J1650) SC SCH (08:27)
[2017-01-15] MEDS: LEVEMIR (INSULIN DETEMIR) 1 UNITS/0.01ML SC SCH ×2 (08:27→20:47)
[2017-01-15] MEDS: levETIRAcetam 250MG TABLET (KEPPRA) PO SCH ×2 (08:28→20:46)
[2017-01-15] MEDS: SPIRONOLACTONE 25 MG TAB PO SCH (08:28)
[2017-01-15] MEDS: IRBESARTAN 150 MG TAB PO SCH (10:19)
[2017-01-15 14:00] VITALS: BP_SYST 132; BP_SYST 134; BP_SYST 137; BP_DIAS 62; BP_DIAS 63; BP_DIAS 67
[2017-01-15 19:45] VITALS: O2SAT 97
[2017-01-15 20:00] VITALS: BP_SYST 130; BP_SYST 137; BP_SYST 144; BP_DIAS 61; BP_DIAS 63; BP_DIAS 65
[2017-01-16] MEDS: IPRATROPIUM 0.5MG/ALBUTEROL 2.5MG INH SOL UD 3ML (DUONEB)(J7620) NEB SCH ×4 (01:48→19:36)
[2017-01-16] MEDS: NYSTATIN 500,000 U/5 ML SUSP UDC SS SCH ×4 (05:51→23:10)
[2017-01-16] MEDS: LEVOTHYROXINE 0.137 MG TAB (137MCG) PO SCH (05:51)
[2017-01-16] MEDS: MOM 30ML SUSPENSION UDC PO PRN (05:57)
[2017-01-16 06:00] VITALS: BP_SYST 133; BP_SYST 134; BP_SYST 142; BP_DIAS 59; BP_DIAS 65; BP_DIAS 66
[2017-01-16] MEDS: HumaLOG INSULIN (NovoLOG) PER UNIT SC SCH ×4 (08:15→20:13)
[2017-01-16] MEDS: LEVEMIR (INSULIN DETEMIR) 1 UNITS/0.01ML SC SCH ×2 (08:15→20:27)
[2017-01-16] MEDS: IRBESARTAN 150 MG TAB PO SCH (08:16)
[2017-01-16] MEDS: SITagliptin 50 MG TAB (JANUVIA) PO SCH (08:16)
[2017-01-16] MEDS: ROSUVASTATIN 10 MG TAB (CRESTOR) PO SCH (08:16)
[2017-01-16] MEDS: levETIRAcetam 250MG TABLET (KEPPRA) PO SCH ×2 (08:16→20:17)
[2017-01-16] MEDS: amLODIPine 10 MG TAB PO SCH (08:16)
[2017-01-16] MEDS: ENOXAPARIN 40 MG/0.4 ML SYRINGE (J1650) SC SCH (08:17)
[2017-01-16] MEDS: SPIRONOLACTONE 25 MG TAB PO SCH (08:17)
[2017-01-16] MEDS: FUROSEMIDE 40 MG TAB PO SCH (08:17)
[2017-01-16 14:00] VITALS: BP_SYST 134; BP_SYST 138; BP_DIAS 64; BP_DIAS 69
--- NOTE | 2017-01-16 16:31 | ECGEPIP ---
Stationary ECG Study [facility] Test Date: 2017-01-14 Pat Name: COLTON MACIAS Department: Room: [place] [address] Gender: F Client Application Support Specialist: : [id number] Requested By: Kelly Knox Order Number: [id number] Reading MD: Apoorva Suarez Measurements Intervals [place] Rate: 66 P: 78 SC: 245 QRS: -36 QRSD: 117 T: 66 QT: 394 QTc: 414 Interpretive Statements SINUS RHYTHM WITH FIRST DEGREE AV BLOCK MARKED LEFT AXIS DEVIATION LOW QRS VOLTAGE IN PRECORDIAL LEADS POOR R WAVE PROGRESSION SIMILAR TO 07/01/16 Electronically Signed On 01-16-2017 16:30:37 EDT by Apoorva Suarez
[2017-01-16 20:00] VITALS: BP 132/70
[2017-01-17] MEDS: IPRATROPIUM 0.5MG/ALBUTEROL 2.5MG INH SOL UD 3ML (DUONEB)(J7620) NEB SCH ×4 (01:46→20:00)
[2017-01-17 06:00] VITALS: BP 154/71
[2017-01-17] MEDS: NYSTATIN 500,000 U/5 ML SUSP UDC SS SCH ×4 (06:44→23:14)
[2017-01-17] MEDS: LEVOTHYROXINE 0.137 MG TAB (137MCG) PO SCH (06:44)
[2017-01-17 06:56] LABS: MEAN CORPUSCULAR HEMOGLOBIN 27.3 pg (27.0-33.0); MEAN CORPUSCULAR HGB CONC 31.7 g/dl (32.0-36.5); MEAN CORPUSCULAR VOLUME 86.1 fl (80.0-96.0); RED CELL DISTRIBUTION WIDTH 13.9 % (11.5-14.5); WHITE BLOOD COUNT 7.1 K/mm3 (4.0-10.0)
[2017-01-17 07:15] LABS: CREATININE FOR GFR 1.29 MG/DL (0.55-1.02); POTASSIUM SERUM 4.3 MEQ/L (3.5-5.1)
[2017-01-17] MEDS: LEVEMIR (INSULIN DETEMIR) 1 UNITS/0.01ML SC SCH ×2 (09:00→20:25)
[2017-01-17] MEDS: HumaLOG INSULIN (NovoLOG) PER UNIT SC SCH ×4 (09:01→20:25)
[2017-01-17] MEDS: SPIRONOLACTONE 25 MG TAB PO SCH (09:03)
[2017-01-17] MEDS: SITagliptin 50 MG TAB (JANUVIA) PO SCH (09:03)
[2017-01-17] MEDS: FUROSEMIDE 40 MG TAB PO SCH (09:03)
[2017-01-17] MEDS: ROSUVASTATIN 10 MG TAB (CRESTOR) PO SCH (09:03)
[2017-01-17] MEDS: ENOXAPARIN 40 MG/0.4 ML SYRINGE (J1650) SC SCH (09:03)
[2017-01-17] MEDS: amLODIPine 10 MG TAB PO SCH (09:04)
[2017-01-17] MEDS: IRBESARTAN 150 MG TAB PO SCH (09:04)
[2017-01-17] MEDS: levETIRAcetam 250MG TABLET (KEPPRA) PO SCH ×2 (09:04→20:24)
--- NOTE | 2017-01-17 10:50 | IPNPDOC ---
Subjective Date Seen The patient was seen on 01/17/17. Subjective Chief Complaint/HPI The patient is a 81-year-old female admitted with a reason for visit of Respiratory Failure. Events since last encounter Pt states she is still having some SOB, worse when she is active. She then reports this is her baseline breathing status. Some non productive cough, no edema. O2 weaned to 2LNC from 3LNC. Her is at bedside and reports she was started on BREO about 1 month ago but she has been using the inhaler incorrectly per respiratory. Pt and educated. Pt and her report state hse is very sedentary at home, she usually just sits and watches TV. Objective Physical Examination General Exam: Positive: Alert Eye Exam: Positive: PERRLA ENT Exam: Positive: Atraumatic Chest Exam: Positive: Clear to auscultation, Normal air movement Heart Exam: Positive: Rate Normal, Regular Rhythm, Normal S1, Normal S2, Negative: Murmurs, Rubs Extremity Exam: Positive: Normal pulses, Negative: Clubbing, Cyanosis, Edema Skin Exam: Positive: Nl turgor and temperature Assessment /Plan Problems (1) Respiratory failure Problem Text: * ARU as per Vincent. * PT/OT/ST * Pt reporting SOB today. * Pt is afebrile. WBC WNL. * CXR 01/14/17. Chronic changes as described above with other findings. I cannot exclude the possibility of a slight right pleural effusion although it is doubtful. * Cont with nebs. * request I/S. * Add BREO as previously prescribed. (2) Seizure Status: Chronic Problem Text: * Keppra 750mg BID (3) CKD (chronic kidney disease) Status: Chronic Problem Text: * SCr 1.09 * Monitor (4) Anemia in CKD (chronic kidney disease) Status: Chronic Problem Text: * Hgb 8.2 (decreased from 9.3) * Fe studies/B12/folate. * Stool OB x 1 neg. * Monitor. (5) Hypertension Status: Chronic Problem Text: * Cont Norvasc with hold paramters * Irbesartan (6) Diastolic CHF Status: Chronic Problem Text: * po Lasix/Aldactone (7) Hypothyroidism Status: Acute (8) Diabetes mellitus type II, uncontrolled Status: Chronic Problem Text: * Levemir * SSI * Januvia (9) Dyslipidemia Status: Chronic Problem Text: * Cont statin Plan/VTE VTE Prophylaxis Ordered?: Yes (SCD/TEDS) VS, I&O, 24H, Fishbone Vital Signs/I&O Vital Signs Date Time Temp Pulse Resp B/P (MAP) Pulse Ox O2 Delivery O2 Flow Rate FiO2 01/17/17 09:04 154/71 01/17/17 09:04 60 01/17/17 08:00 Nasal Cannula 2.0 01/17/17 06:00 99.4 18 98 I&O- Last 24 Hours up to 6 AM 01/17/17 06:00 Intake Total 840 ml Output Total 2650 ml Balance -1810 ml Laboratory Data 24H LABS Laboratory Tests 2 01/16/17 11:53: Bedside Glucose (Misc Panel) 186H 01/16/17 16:58: Bedside Glucose (Misc Panel) 162H 01/16/17 20:09: Bedside Glucose (Misc Panel) 178H 01/17/17 06:30: Anion Gap 5L, Glomerular Filtration Rate 42.0, Blood Urea Nitrogen 17#, Creatinine 1.29H, Sodium Level 140, Potassium Level 4.3, Chloride Level 105, Carbon Dioxide Level 30, Calcium Level 9.0 CBC/BMP Laboratory Tests 01/17/17 06:30 Red Blood Count 3.01 L, Mean Corpuscular Volume 86.1, Mean Corpuscular Hemoglobin 27.3, Mean Corpuscular Hemoglobin Concent 31.7 L, Red Cell Distribution Width 13.9, Calcium Level 9.0 Kelly Knox Jan 17, 2017 10:50
--- NOTE | 2017-01-17 11:41 | IPNPDOC ---
[employer] Progress Note DATE OF SERVICE: 01/17/17 DATE OF ADMISSION: January 12, 2017 at 16:00 INPATIENT REHABILITATION ADMISSION DAY: #6 SUBJECTIVE: Patient is a 81-year-old white female with debilitation secondary to seizure, respiratory failure and diabetes mellitus. Patient continuing with PT, OT and speech therapy. Just complaining of feeling dyspnea. ALLERGIES: See Below MEDICATIONS: Reviewed, see below. OBJECTIVE: VITAL SIGNS: Please see below. PHYSICAL EXAMINATION: GENERAL: Obese elderly white female who is alert and fairly well oriented. Speech is fairly clear and appropriate though slightly concrete consistent with Lithuanian as a second language. Patient is more fluent and showing more spontaneous speech with some humor. Cognition does seem to be steadily improving and patient appears to be appreciating her situation better. HEENT: Normocephalic/atraumatic with continued healing and near closure of tracheostomy site. No drainage or inflammation seen at ostomy site. CARDIOVASCULAR: Regular rate and rhythm with normal S1 and S2. Good radial pulses. LUNGS: All hunt clear to auscultation. Patient on O2 by nasal cannula maintaining good O2 saturations on low rates of flow. ABDOMEN: Obese with normal bowel sounds in all quadrants. NEUROLOGICAL: Patient with fair to good strength showing some increase in endurance but she does wear out and is very tired after completing therapy. SKIN: Healing trach site. LABORATORY DATA: Reviewed. Please see below. MICROBIOLOGY: Please see below. IMAGING: CXR and Cookie Swallow done Tuesday. DVT prophylaxis ordered?: Patient using AYUSH hose and ambulation. ASSESSMENT AND PLAN: 1. Debilitation: Patient is showing good effort in therapies and is fatigued at the end of sessions. Hopefully advancing her diet will allow for better nutritional support and muscle building and endurance increasing with the therapies. Anemia is also a factor. Patient was reviewed at Team [facility] and is doing well making progress and has had significant cognitive clearing. Patient is on pace to meet Discharge to home goal around the or . 2. Dysphagia: Patient did very well on testing today. Patient was advanced to a consistent carbohydrate diet with thin liquids. Patient remains very happy about this and hopefully this will improve nutrition. 3. Respiratory: Patient with good pulse oximetry and moving air well in all lung hunt. CXR Tuesday01/14/17 with chronic changes and possible small pleural effusion. Anemia is slowly worsening it appears and may require transfusion if not stable or improving. 4. Diabetes mellitus: Tolerating current regimen with Januvia, Detmir and SSI. TIME SPENT: Chart Review, examination and documentation required greater than 35 minutes. Allergies Coded Allergies: Meloxicam (Verified Allergy, Unknown, 11/15/12) Vital Signs Vital Signs Date Time Temp Pulse Resp B/P (MAP) Pulse Ox O2 Delivery O2 Flow Rate FiO2 01/17/17 09:04 154/71 01/17/17 09:04 60 01/17/17 08:00 Nasal Cannula 2.0 01/17/17 06:00 99.4 18 98 Laboratory Data CBC/BMP Laboratory Tests 01/17/17 06:30 Red Blood Count 3.01 L, Mean Corpuscular Volume 86.1, Mean Corpuscular Hemoglobin 27.3, Mean Corpuscular Hemoglobin Concent 31.7 L, Red Cell Distribution Width 13.9, Calcium Level 9.0 Labs 24H Laboratory Tests 2 01/16/17 11:53: Bedside Glucose (Misc Panel) 186H 01/16/17 16:58: Bedside Glucose (Misc Panel) 162H 01/16/17 20:09: Bedside Glucose (Misc Panel) 178H 01/17/17 06:30: Anion Gap 5L, Glomerular Filtration Rate 42.0, Blood Urea Nitrogen 17#, Creatinine 1.29H, Sodium Level 140, Potassium Level 4.3, Chloride Level 105, Carbon Dioxide Level 30, Calcium Level 9.0 01/17/17 11:16: Bedside Glucose (Misc Panel) 152H Current Medications Current Medications Current Medications Acetaminophen (Tylenol Tab) 650 mg Q6HP PRN PO PAIN OR FEVER; Start 01/12/17 at 15:15; Stop 02/11/17 at 15:14 Al Hydrox/Mg Hydrox/Simethicone (Mylanta) 30 ml Q4HP PRN PO DYSPEPSIA; Start at 15:15; Stop 02/11/17 at 15:14 Albuterol Sulfate (Proventil, Ventolin Hfa) 2 puff Q4HP PRN INH SHORTNESS OF BREATH Last administered on 01/13/17t 18:39; Start 01/12/17 at 15:45; Stop at 15:44 Albuterol/ Ipratropium (Duoneb (Ipr 0.5mg/Alb 2.5mg)) 3 ml Q2HP PRN NEB SOB/ WHEEZING; Start 01/13/17 at 13:45; Stop 02/12/17 at 13:44 Albuterol/ Ipratropium (Duoneb (Ipr 0.5mg/Alb 2.5mg)) 3 ml RQ6H NEB Last administered on 01/17/17 09:19; Start 01/13/17 at 14:00; Stop 02/12/17 at 13:59 Amlodipine Besylate (Norvasc) 10 mg DAILY PO Last administered on 01/17/17 09: 04; Start 01/13/17 at 09:00; Stop 02/12/17 at 08:59 Dextrose (Dextrose 50%) 25 ml ASDIRECTED PRN IV SEE LABEL COMMENTS; Start 01/12 at 15:45; Stop 02/11/17 at 15:44; Status Cancel Dimenhydrinate (Dramamine) 25 mg Q4HP PRN PO NAUSEA OR VOMITING; Start at 15:45; Stop 02/11/17 at 15:44 Enoxaparin Sodium (Lovenox) 40 mg DAILY SC Last administered on 01/17/17 09:03 ; Start 01/15/17 at 09:00; Stop 01/20/17 at 08:59 Furosemide (Lasix) 40 mg DAILY PO Last administered on 01/17/17 09:03; Start at 09:00; Stop 02/12/17 at 08:59 Glucagon (Glucagon) 1 mg ASDIRECTED PRN SC SEE LABEL COMMENTS; Start 01/12/17 at 15:45; Stop 02/11/17 at 15:44 Glucose (Glucose) 16 GM ASDIRECTED PRN PO SEE LABEL COMMENTS; Start 01/12/17 at 15:45; Stop 02/11/17 at 15:44 Insulin Detemir (Levemir Insulin) 6 units BID SC Last administered on 01/17/17 09:00; Start 01/12/17 at 21:00; Stop 02/11/17 at 20:59 Insulin Human Lispro (HumaLOG INSULIN) See Protocol Table AC SC Last administered on 01/17/17 11:31; Start 01/12/17 at 17:30; Stop 02/11/17 at 17:29 Insulin Human Lispro (HumaLOG INSULIN) See Protocol Table QHS SC ; Start at 21:00; Stop 02/11/17 at 20:59 Irbesartan (Avapro) 300 mg DAILY PO Last administered on 01/17/17 09:04; Start 01/13/17 at 09:00; Stop 02/12/17 at 08:59 Levetiracetam (Keppra) 750 mg BID PO Last administered on 01/17/17 09:04; Start 01/12/17 at 21:00; Stop 02/11/17 at 20:59 Levothyroxine Sodium (Synthroid) 0.137 mg DAILY@06 PO ; Start 01/13/17 at 06:00; Stop 01/13/17 at 06:00; Status DC Levothyroxine Sodium (Synthroid) 0.137 mg DAILY@06 PO Last administered on 06:44; Start 01/13/17 at 06:00; Stop 02/12/17 at 05:59 Lorazepam (Ativan) 1 mg Q1HP PRN IV SEIZURES; Start 01/12/17 at 15:45; Stop 01/19/17 at 15:44; Status Cancel Magnesium Hydroxide (Milk Of Magnesia) 30 ml DAILYPRN PRN PO CONSTIPATION Last administered on 01/16/17 05:57; Start 01/12/17 at 15:15; Stop 02/11/17 at 15:14 Miscellaneous (Unresolved Patient Own Med Order) SEE LABEL COMMENTS UNRESOLVED XX ; Start 01/13/17 at 00:01; Stop 02/12/17 at 00:00 Miscellaneous (Unresolved Patient Own Med Order) SEE LABEL COMMENTS UNRESOLVED XX ; Start 01/17/17 at 00:01; Stop 02/16/17 at 00:00 Nystatin (Mycostatin) 5 ml Q6H SS Last administered on 01/17/17 11:31; Start at 18:00; Stop 01/19/17 at 17:59 Omeprazole (PriLOSEC) 20 mg DAILY PO ; Start 01/13/17 at 09:00; Stop 02/12/17 at 08:59; Status UNV Patient Own Medication (Patient'S Own Med) 1 ea BID INH ; Start 01/17/17 at 21:00 ; Stop 02/16/17 at 20:59; Status UNV Patient Own Medication (Patient'S Own Med) [place] 4 puffs inha... BID INH ; Start 01/14/17 at 21:00; Stop 02/13/17 at 20:59; Status Future Hold Rosuvastatin Calcium (Crestor) 10 mg DAILY PO Last administered on 01/17/17 09: 03; Start 01/13/17 at 09:00; Stop 02/12/17 at 08:59 Sitagliptin Phosphate (Januvia) 100 mg DAILY PO Last administered on 01/17/17 09:03; Start 01/13/17 at 09:00; Stop 02/12/17 at 08:59 Sodium Biphosphate/ Sodium Phosphate (Fleet Enema) 1 ea DAILYPRN PRN [place] CONSTIPATION; Start 01/12/17 at 15:15; Stop 02/11/17 at 15:14 Spironolactone (Aldactone) 25 mg QAM PO Last administered on 01/17/17 09:03; Start 01/13/17 at 09:00; Stop 02/12/17 at 08:59 PATRICIA ARMENTA MD Jan 17, 2017 11:41
[2017-01-17 14:00] VITALS: BP 119/59
[2017-01-17 20:00] VITALS: BP 137/67
[2017-01-17] MEDS: BREO INH SCH (21:34)
[2017-01-18] MEDS: IPRATROPIUM 0.5MG/ALBUTEROL 2.5MG INH SOL UD 3ML (DUONEB)(J7620) NEB SCH ×4 (01:25→20:00)
[2017-01-18] MEDS: LEVOTHYROXINE 0.137 MG TAB (137MCG) PO SCH (06:22)
[2017-01-18] MEDS: NYSTATIN 500,000 U/5 ML SUSP UDC SS SCH ×3 (06:22→17:20)
[2017-01-18 06:31] VITALS: BP 151/71
[2017-01-18 07:05] LABS: MEAN CORPUSCULAR HEMOGLOBIN 28.1 pg (27.0-33.0); MEAN CORPUSCULAR HGB CONC 32.4 g/dl (32.0-36.5); MEAN CORPUSCULAR VOLUME 86.7 fl (80.0-96.0); RED CELL DISTRIBUTION WIDTH 13.7 % (11.5-14.5); WHITE BLOOD COUNT 8.9 K/mm3 (4.0-10.0)
[2017-01-18] MEDS: BREO INH SCH ×2 (07:37→20:13)
[2017-01-18] MEDS: levETIRAcetam 250MG TABLET (KEPPRA) PO SCH ×2 (09:17→21:03)
[2017-01-18] MEDS: LEVEMIR (INSULIN DETEMIR) 1 UNITS/0.01ML SC SCH ×2 (09:18→20:58)
[2017-01-18] MEDS: HumaLOG INSULIN (NovoLOG) PER UNIT SC SCH ×4 (09:23→21:00)
[2017-01-18] MEDS: IRBESARTAN 150 MG TAB PO SCH (09:24)
[2017-01-18] MEDS: SPIRONOLACTONE 25 MG TAB PO SCH (09:24)
[2017-01-18] MEDS: ROSUVASTATIN 10 MG TAB (CRESTOR) PO SCH (09:24)
[2017-01-18] MEDS: SITagliptin 50 MG TAB (JANUVIA) PO SCH (09:24)
[2017-01-18] MEDS: amLODIPine 10 MG TAB PO SCH (09:25)
[2017-01-18] MEDS: ENOXAPARIN 40 MG/0.4 ML SYRINGE (J1650) SC SCH (09:29)
[2017-01-18] MEDS: FUROSEMIDE 40 MG TAB PO SCH (09:29)
--- NOTE | 2017-01-18 09:37 | IPNPDOC ---
[employer] O[employer] Tender Progress Note DATE OF SERVICE: 01/18/17 DATE OF ADMISSION: January 12, 2017 at 16:00 INPATIENT REHABILITATION ADMISSION DAY: #7 SUBJECTIVE: Patient is a 81-year-old white female with debilitation secondary to seizure, respiratory failure and diabetes mellitus. Patient continuing with PT, OT and speech therapy. Just complaining of feeling dyspnea. ALLERGIES: See Below MEDICATIONS: Reviewed, see below. OBJECTIVE: VITAL SIGNS: Please see below. PHYSICAL EXAMINATION: GENERAL: Obese elderly white female who is alert and fairly well oriented. Speech is fairly clear and appropriate though slightly concrete consistent with [place] as a second language. Patient is more fluent and showing more spontaneous speech with some humor. Cognition does seem to be steadily improving and patient appears to be appreciating her situation better. HEENT: Normocephalic/atraumatic with continued healing and near closure of tracheostomy site. No drainage or inflammation seen at ostomy site. CARDIOVASCULAR: Regular rate and rhythm with normal S1 and S2. Good radial pulses. LUNGS: All hunt clear to auscultation. Patient on O2 by nasal cannula maintaining good O2 saturations on low rates of flow. ABDOMEN: Obese with normal bowel sounds in all quadrants. NEUROLOGICAL: Patient with fair to good strength showing some increase in endurance but she does wear out and is very tired after completing therapy. SKIN: Healing trach site. LABORATORY DATA: Reviewed. Please see below. MICROBIOLOGY: Please see below. IMAGING: CXR and Cookie Swallow done Tuesday. DVT prophylaxis ordered?: Patient using AYUSH hose and ambulation. ASSESSMENT AND PLAN: 1. Debilitation: Patient is showing good effort in therapies and is fatigued at the end of sessions. Hopefully advancing her diet will allow for better nutritional support and muscle building and endurance increasing with the therapies. Anemia is also a factor, but improved on today's CBC. 2. Dysphagia: Patient on aconsistent carbohydrate diet with thin liquids tolerating it well. Patient remains very happy about this and hopefully this will improve nutrition. 3. Respiratory: Patient with good pulse oximetry and moving air well in all lung hunt. 4. Diabetes mellitus: Tolerating current regimen with Januvia, Detmir and SSI. Some increase BS with change of diet to one patient enjoys.l 5. Anemia: Improved with H&H 8.9 and 27.5% today. TIME SPENT: Chart Review, examination and documentation required greater than 15 minutes. Allergies Coded Allergies: Meloxicam (Verified Allergy, Unknown, 11/15/12) Vital Signs Vital Signs Date Time Temp Pulse Resp B/P (MAP) Pulse Ox O2 Delivery O2 Flow Rate FiO2 01/18/17 09:25 74 151/71 01/18/17 06:32 96 Nasal Cannula 2.0 01/18/17 06:31 98.0 18 Laboratory Data CBC/BMP Laboratory Tests 01/18/17 06:48 Red Blood Count 3.17 L, Mean Corpuscular Volume 86.7, Mean Corpuscular Hemoglobin 28.1, Mean Corpuscular Hemoglobin Concent 32.4, Red Cell Distribution Width 13.7 Labs 24H Laboratory Tests 2 01/17/17 11:16: Bedside Glucose (Misc Panel) 152H 01/17/17 16:34: Bedside Glucose (Misc Panel) 159H 01/17/17 20:15: Bedside Glucose (Misc Panel) 196H 01/18/17 07:15: Bedside Glucose (Misc Panel) 220H Current Medications Current Medications Current Medications Acetaminophen (Tylenol Tab) 650 mg Q6HP PRN PO PAIN OR FEVER; Start 01/12/17 at 15:15; Stop 02/11/17 at 15:14 Al Hydrox/Mg Hydrox/Simethicone (Mylanta) 30 ml Q4HP PRN PO DYSPEPSIA; Start at 15:15; Stop 02/11/17 at 15:14 Albuterol Sulfate (Proventil, Ventolin Hfa) 2 puff Q4HP PRN INH SHORTNESS OF BREATH Last administered on 01/13/17 18:39; Start 01/12/17 at 15:45; Stop at 15:44 Albuterol/ Ipratropium (Duoneb (Ipr 0.5mg/Alb 2.5mg)) 3 ml Q2HP PRN NEB SOB/ WHEEZING; Start 01/13/17 at 13:45; Stop 02/12/17 at 13:44 Albuterol/ Ipratropium (Duoneb (Ipr 0.5mg/Alb 2.5mg)) 3 ml RQ6H NEB Last administered on 01/17/17 13:46; Start 01/13/17 at 14:00; Stop 02/12/17 at 13:59 Amlodipine Besylate (Norvasc) 10 mg DAILY PO Last administered on 01/18/17 09: 25; Start 01/13/17 at 09:00; Stop 02/12/17 at 08:59 Dextrose (Dextrose 50%) 25 ml ASDIRECTED PRN IV SEE LABEL COMMENTS; Start 01/12 at 15:45; Stop 02/11/17 at 15:44; Status Cancel Dimenhydrinate (Dramamine) 25 mg Q4HP PRN PO NAUSEA OR VOMITING; Start at 15:45; Stop 02/11/17 at 15:44 Enoxaparin Sodium (Lovenox) 40 mg DAILY SC Last administered on 01/18/17 09:29 ; Start 01/15/17 at 09:00; Stop 01/20/17 at 08:59 Furosemide (Lasix) 40 mg DAILY PO Last administered on 01/18/17 09:29; Start at 09:00; Stop 02/12/17 at 08:59 Glucagon (Glucagon) 1 mg ASDIRECTED PRN SC SEE LABEL COMMENTS; Start 01/12/17 at 15:45; Stop 02/11/17 at 15:44 Glucose (Glucose) 16 GM ASDIRECTED PRN PO SEE LABEL COMMENTS; Start 01/12/17 at 15:45; Stop 02/11/17 at 15:44 Insulin Detemir (Levemir Insulin) 6 units BID SC Last administered on 01/18/17 09:18; Start 01/12/17 at 21:00; Stop 02/11/17 at 20:59 Insulin Human Lispro (HumaLOG INSULIN) See Protocol Table AC SC Last administered on 01/18/17 09:23; Start 01/12/17 at 17:30; Stop 02/11/17 at 17:29 Insulin Human Lispro (HumaLOG INSULIN) See Protocol Table QHS SC ; Start at 21:00; Stop 02/11/17 at 20:59 Irbesartan (Avapro) 300 mg DAILY PO Last administered on 01/18/17 09:24; Start 01/13/17 at 09:00; Stop 02/12/17 at 08:59 Levetiracetam (Keppra) 750 mg BID PO Last administered on 01/18/17 09:17; Start 01/12/17 at 21:00; Stop 02/11/17 at 20:59 Levothyroxine Sodium (Synthroid) 0.137 mg DAILY@06 PO ; Start 01/13/17 at 06:00; Stop 01/13/17 at 06:00; Status DC Levothyroxine Sodium (Synthroid) 0.137 mg DAILY@06 PO Last administered on 06:22; Start 01/13/17 at 06:00; Stop 02/12/17 at 05:59 Lorazepam (Ativan) 1 mg Q1HP PRN IV SEIZURES; Start 01/12/17 at 15:45; Stop 01/19/17 at 15:44; Status Cancel Magnesium Hydroxide (Milk Of Magnesia) 30 ml DAILYPRN PRN PO CONSTIPATION Last administered on 01/16/17 05:57; Start 01/12/17 at 15:15; Stop 02/11/17 at 15:14 Miscellaneous (Unresolved Patient Own Med Order) SEE LABEL COMMENTS UNRESOLVED XX ; Start 01/13/17 at 00:01; Stop 01/17/17 at 16:02; Status DC Miscellaneous (Unresolved Patient Own Med Order) SEE LABEL COMMENTS UNRESOLVED XX ; Start 01/17/17 at 00:01; Stop 01/17/17 at 16:02; Status DC Nystatin (Mycostatin) 5 ml Q6H SS Last administered on 01/18/17 06:22; Start at 18:00; Stop 01/18/17 at 09:17; Status DC Nystatin (Mycostatin) 5 ml Q6H SS ; Start 01/18/17 at 12:00; Stop 01/29/17 at 12: 00 Omeprazole (PriLOSEC) 20 mg DAILY PO ; Start 01/13/17 at 09:00; Stop 02/12/17 at 08:59; Status UNV Patient Own Medication (Patient'S Own Med) 1 ea BID INH Last administered on 07:37; Start 01/17/17 at 21:00; Stop 02/16/17 at 20:59 Patient Own Medication (Patient'S Own Med) Zenhale 4 puffs inha... BID INH ; Start 01/14/17 at 21:00; Stop 01/17/17 at 16:02; Status DC Rosuvastatin Calcium (Crestor) 10 mg DAILY PO Last administered on 01/18/17 09: 24; Start 01/13/17 at 09:00; Stop 02/12/17 at 08:59 Sitagliptin Phosphate (Januvia) 100 mg DAILY PO Last administered on 01/18/17 09:24; Start 01/13/17 at 09:00; Stop 02/12/17 at 08:59 Sodium Biphosphate/ Sodium Phosphate (Fleet Enema) 1 ea DAILYPRN PRN [place] CONSTIPATION; Start 01/12/17 at 15:15; Stop 02/11/17 at 15:14 Spironolactone (Aldactone) 25 mg QAM PO Last administered on 01/18/17 09:24; Start 01/13/17 at 09:00; Stop 02/12/17 at 08:59 PATRICIA ARMENTA MD Jan 18, 2017 09:37
--- NOTE | 2017-01-18 11:56 | IPNPDOC ---
Subjective Date Seen The patient was seen on 01/18/17. Subjective Chief Complaint/HPI The patient is a 81-year-old female admitted with a reason for visit of Respiratory Failure. Events since last encounter The pt has no complaints other than she is tired after therapy this AM. Pulmonary: Denies: Cough Cardiovascular: Denies: Chest Pain, Palpitations, Orthopnea, Paroxysmal Noc. Dyspnea, Lt Headedness Gastrointestinal: Denies: Nausea, Vomiting, Abdominal Pain, Diarrhea, Constipation Genitourinary: Denies: Dysuria, Frequency, Incontinence, Retention Objective Physical Examination General Exam: Positive: Alert Eye Exam: Positive: PERRLA ENT Exam: Positive: Atraumatic Chest Exam: Positive: Clear to auscultation, Normal air movement Heart Exam: Positive: Rate Normal, Regular Rhythm, Normal S1, Normal S2, Negative: Murmurs, Rubs Extremity Exam: Positive: Normal pulses, Negative: Clubbing, Cyanosis, Edema Skin Exam: Positive: Nl turgor and temperature Assessment /Plan Problems (1) Respiratory failure Problem Text: * ARU as per [facility]. * PT/OT/ST * Pt with chronic SOB. * Pt is afebrile. WBC WNL. * CXR 01/14/17. Chronic changes as described above with other findings. I cannot exclude the possibility of a slight right pleural effusion although it is doubtful. * Cont with nebs. * request I/S. * BREO added 01/17/17. (2) Seizure Status: Chronic Problem Text: * Keppra 750mg BID (3) CKD (chronic kidney disease) Status: Chronic Problem Text: * SCr 1.29 * Recheck BMP in AM. * Monitor (4) Anemia in CKD (chronic kidney disease) Status: Chronic Problem Text: * Hgb 8.9, trend upward. * Fe studies/B12/folate. * Stool OB x 1 neg. * Monitor. (5) Hypertension Status: Chronic Problem Text: * Cont Norvasc with hold paramters * Irbesartan (6) Diastolic CHF Status: Chronic Problem Text: * po Lasix/Aldactone (7) Hypothyroidism Status: Acute (8) Diabetes mellitus type II, uncontrolled Status: Chronic Problem Text: * Levemir * SSI * Januvia (9) Dyslipidemia Status: Chronic Problem Text: * Cont statin (10) Oral thrush Problem Text: * Pt on Nystatin SS Plan/VTE VTE Prophylaxis Ordered?: Yes (SCD/TEDS) VS, I&O, 24H, Fishbone Vital Signs/I&O Vital Signs Date Time Temp Pulse Resp B/P (MAP) Pulse Ox O2 Delivery O2 Flow Rate FiO2 01/18/17 09:25 74 151/71 01/18/17 09:00 Nasal Cannula 2.0 01/18/17 06:32 96 01/18/17 06:31 98.0 18 I&O- Last 24 Hours up to 6 AM 01/18/17 06:00 Intake Total 1440 ml Output Total 3750 ml Balance -2310 ml Laboratory Data 24H LABS Laboratory Tests 2 01/17/17 16:34: Bedside Glucose (Misc Panel) 159H 01/17/17 20:15: Bedside Glucose (Misc Panel) 196H 01/18/17 07:15: Bedside Glucose (Misc Panel) 220H 01/18/17 11:32: Bedside Glucose (Misc Panel) 155H CBC/BMP Laboratory Tests 01/18/17 06:48 Red Blood Count 3.17 L, Mean Corpuscular Volume 86.7, Mean Corpuscular Hemoglobin 28.1, Mean Corpuscular Hemoglobin Concent 32.4, Red Cell Distribution Width 13.7 Kelly Knox Jan 18, 2017 11:56
[2017-01-18 14:00] VITALS: BP 157/72
[2017-01-18 20:00] VITALS: BP 149/70
[2017-01-19] MEDS: NYSTATIN 500,000 U/5 ML SUSP UDC SS SCH ×4 (00:18→17:29)
[2017-01-19] MEDS: IPRATROPIUM 0.5MG/ALBUTEROL 2.5MG INH SOL UD 3ML (DUONEB)(J7620) NEB SCH ×5 (02:00→20:34)
[2017-01-19 06:00] VITALS: BP 131/63
[2017-01-19] MEDS: LEVOTHYROXINE 0.137 MG TAB (137MCG) PO SCH (06:12)
[2017-01-19] MEDS: ROSUVASTATIN 10 MG TAB (CRESTOR) PO SCH (07:59)
[2017-01-19] MEDS: SPIRONOLACTONE 25 MG TAB PO SCH (07:59)
[2017-01-19] MEDS: FUROSEMIDE 40 MG TAB PO SCH (07:59)
[2017-01-19] MEDS: LEVEMIR (INSULIN DETEMIR) 1 UNITS/0.01ML SC SCH ×2 (07:59→20:26)
[2017-01-19] MEDS: levETIRAcetam 250MG TABLET (KEPPRA) PO SCH ×2 (07:59→20:25)
[2017-01-19] MEDS: HumaLOG INSULIN (NovoLOG) PER UNIT SC SCH ×4 (07:59→20:26)
[2017-01-19] MEDS: SITagliptin 50 MG TAB (JANUVIA) PO SCH (08:00)
[2017-01-19] MEDS: ENOXAPARIN 40 MG/0.4 ML SYRINGE (J1650) SC SCH (08:00)
[2017-01-19] MEDS: IRBESARTAN 150 MG TAB PO SCH (08:01)
[2017-01-19] MEDS: amLODIPine 10 MG TAB PO SCH (08:02)
[2017-01-19] MEDS: BREO INH SCH ×2 (08:08→20:27)
[2017-01-19 08:52] LABS: CALCIUM LEVEL 8.5 MG/DL (8.8-10.2); CREATININE FOR GFR 1.4 MG/DL (0.55-1.02); GLOMERULAR FILTRATION RATE 38.2 (>32); POTASSIUM SERUM 4.4 MEQ/L (3.5-5.1)
--- NOTE | 2017-01-19 11:11 | IPNPDOC ---
Product Blending Supervisor Progress Note DATE OF SERVICE: 01/19/17 DATE OF ADMISSION: January 12, 2017 at 16:00 INPATIENT REHABILITATION ADMISSION DAY: #8 SUBJECTIVE: Patient is a 81-year-old white female with debilitation secondary to seizure, respiratory failure and diabetes mellitus. Patient continuing with PT, OT and speech therapy. Less complaining of feeling dyspneic. No pain problems. ALLERGIES: See Below MEDICATIONS: Reviewed, see below. OBJECTIVE: VITAL SIGNS: Please see below. PHYSICAL EXAMINATION: GENERAL: Obese elderly white female who is alert and fairly well oriented. Speech is fairly clear and appropriate though slightly concrete consistent with [place] as a second language. Patient is more fluent and showing more spontaneous speech with some humor. Cognition does seem to be steadily improving and patient appears to be appreciating her situation better. HEENT: Normocephalic/atraumatic with continued healing and near closure of tracheostomy site. No drainage or inflammation seen at ostomy site. CARDIOVASCULAR: Regular rate and rhythm with normal S1 and S2. Good radial pulses. LUNGS: All hunt clear to auscultation. Patient on O2 by nasal cannula maintaining good O2 saturations on low rates of flow. ABDOMEN: Obese with normal bowel sounds in all quadrants. NEUROLOGICAL: Patient with fair to good strength showing some increase in endurance but she does wear out and is very tired after completing therapy. SKIN: Healing trach site. LABORATORY DATA: Reviewed. Please see below. MICROBIOLOGY: Please see below. IMAGING: No new imaging. DVT prophylaxis ordered?: Patient using AYUSH hose and ambulation. ASSESSMENT AND PLAN: 1. Debilitation: Patient is showing good effort in therapies and is fatigued at the end of sessions. Hopefully advancing her diet will allow for better nutritional support and muscle building and endurance increasing with the therapies. Some confusion late last night. We will watch. 2. Dysphagia: Patient on a consistent carbohydrate diet with thin liquids tolerating it well. Patient remains very happy about this and hopefully this will improve nutrition. 3. Respiratory: Patient with good pulse oximetry and moving air well in all lung hunt. 4. Diabetes mellitus: Tolerating current regimen with Januvia, Detmir and SSI. Some increase BS with change of diet to one patient enjoys. During the last week , her BS's running about 140 to 250. TIME SPENT: Chart Review, examination and documentation requires greater than 25 minutes. Allergies Coded Allergies: Meloxicam (Verified Allergy, Unknown, 4/3/13) Vital Signs Vital Signs Date Time Temp Pulse Resp B/P (MAP) Pulse Ox O2 Delivery O2 Flow Rate FiO2 01/19/17 09:30 Room Air 01/19/17 08:02 60 137/65 01/19/17 06:00 98.2 20 97 1.5 Laboratory Data CBC/BMP Laboratory Tests 01/19/17 07:58 Calcium Level 8.5 L Labs 24H Laboratory Tests 2 01/18/17 11:32: Bedside Glucose (Misc Panel) 155H 01/18/17 16:29: Bedside Glucose (Misc Panel) 160H 01/18/17 20:08: Bedside Glucose (Misc Panel) 233H 01/19/17 06:15: Bedside Glucose (Misc Panel) 265H 01/19/17 07:58: Anion Gap 9, Glomerular Filtration Rate 38.2, Blood Urea Nitrogen 23H, Creatinine 1.40H, Sodium Level 135L, Potassium Level 4.4, Chloride Level 100, Carbon Dioxide Level 26, Calcium Level 8.5L Current Medications Current Medications Current Medications Acetaminophen (Tylenol Tab) 650 mg Q6HP PRN PO PAIN OR FEVER; Start 01/12/17 at 15:15; Stop 02/11/17 at 15:14 Al Hydrox/Mg Hydrox/Simethicone (Mylanta) 30 ml Q4HP PRN PO DYSPEPSIA; Start at 15:15; Stop 02/11/17 at 15:14 Albuterol Sulfate (Proventil, Ventolin Hfa) 2 puff Q4HP PRN INH SHORTNESS OF BREATH Last administered on 01/13/17 18:39; Start 01/12/17 at 15:45; Stop at 15:44 Albuterol/ Ipratropium (Duoneb (Ipr 0.5mg/Alb 2.5mg)) 3 ml Q2HP PRN NEB SOB/ WHEEZING; Start 01/13/17 at 13:45; Stop 02/12/17 at 13:44 Albuterol/ Ipratropium (Duoneb (Ipr 0.5mg/Alb 2.5mg)) 3 ml RQ6H NEB Last administered on 01/18/17 13:29; Start 01/13/17 at 14:00; Stop 02/12/17 at 13:59 Amlodipine Besylate (Norvasc) 10 mg DAILY PO Last administered on 01/19/17 08: 02; Start 01/13/17 at 09:00; Stop 02/12/17 at 08:59 Dextrose (Dextrose 50%) 25 ml ASDIRECTED PRN IV SEE LABEL COMMENTS; Start 01/12 at 15:45; Stop 02/11/17 at 15:44; Status Cancel Dimenhydrinate (Dramamine) 25 mg Q4HP PRN PO NAUSEA OR VOMITING; Start at 15:45; Stop 02/11/17 at 15:44 Enoxaparin Sodium (Lovenox) 40 mg DAILY SC Last administered on 01/19/17 08:00 ; Start 01/15/17 at 09:00; Stop 01/26/17 at 12:00 Furosemide (Lasix) 40 mg DAILY PO Last administered on 01/19/17 07:59; Start at 09:00; Stop 02/12/17 at 08:59 Glucagon (Glucagon) 1 mg ASDIRECTED PRN SC SEE LABEL COMMENTS; Start 01/12/17 at 15:45; Stop 02/11/17 at 15:44 Glucose (Glucose) 16 GM ASDIRECTED PRN PO SEE LABEL COMMENTS; Start 01/12/17 at 15:45; Stop 02/11/17 at 15:44 Insulin Detemir (Levemir Insulin) 6 units BID SC Last administered on 01/19/17 07:59; Start 01/12/17 at 21:00; Stop 02/11/17 at 20:59 Insulin Human Lispro (HumaLOG INSULIN) See Protocol Table AC SC Last administered on 01/19/17 07:59; Start 01/12/17 at 17:30; Stop 02/11/17 at 17:29 Insulin Human Lispro (HumaLOG INSULIN) See Protocol Table QHS SC ; Start at 21:00; Stop 02/11/17 at 20:59 Irbesartan (Avapro) 300 mg DAILY PO Last administered on 01/19/17 08:01; Start 01/13/17 at 09:00; Stop 02/12/17 at 08:59 Levetiracetam (Keppra) 750 mg BID PO Last administered on 01/19/17 07:59; Start 01/12/17 at 21:00; Stop 02/11/17 at 20:59 Levothyroxine Sodium (Synthroid) 0.137 mg DAILY@06 PO ; Start 01/13/17 at 06:00; Stop 01/13/17 at 06:00; Status DC Levothyroxine Sodium (Synthroid) 0.137 mg DAILY@06 PO Last administered on 06:12; Start 01/13/17 at 06:00; Stop 02/12/17 at 05:59 Lorazepam (Ativan) 1 mg Q1HP PRN IV SEIZURES; Start 01/12/17 at 15:45; Stop 01/19/17 at 15:44; Status Cancel Magnesium Hydroxide (Milk Of Magnesia) 30 ml DAILYPRN PRN PO CONSTIPATION Last administered on 01/16/17 05:57; Start 01/12/17 at 15:15; Stop 02/11/17 at 15:14 Miscellaneous (Unresolved Patient Own Med Order) SEE LABEL COMMENTS UNRESOLVED XX ; Start 01/13/17 at 00:01; Stop 01/17/17 at 16:02; Status DC Miscellaneous (Unresolved Patient Own Med Order) SEE LABEL COMMENTS UNRESOLVED XX ; Start 01/17/17 at 00:01; Stop 01/17/17 at 16:02; Status DC Nystatin (Mycostatin) 5 ml Q6H SS Last administered on 01/18/17 06:22; Start at 18:00; Stop 01/18/17 at 09:17; Status DC Nystatin (Mycostatin) 5 ml Q6H SS Last administered on 01/19/17 06:12; Start at 12:00; Stop 01/29/17 at 12:00 Omeprazole (PriLOSEC) 20 mg DAILY PO ; Start 01/13/17 at 09:00; Stop 02/12/17 at 08:59; Status UNV Patient Own Medication (Patient'S Own Med) 1 ea BID INH Last administered on 08:08; Start 01/17/17 at 21:00; Stop 02/16/17 at 20:59 Patient Own Medication (Patient'S Own Med) [place] 4 puffs inha... BID INH ; Start 01/14/17 at 21:00; Stop 01/17/17 at 16:02; Status DC Rosuvastatin Calcium (Crestor) 10 mg DAILY PO Last administered on 01/19/17 07: 59; Start 01/13/17 at 09:00; Stop 02/12/17 at 08:59 Sitagliptin Phosphate (Januvia) 100 mg DAILY PO Last administered on 01/19/17 08:00; Start 01/13/17 at 09:00; Stop 02/12/17 at 08:59 Sodium Biphosphate/ Sodium Phosphate (Fleet Enema) 1 ea DAILYPRN PRN [place] CONSTIPATION; Start 01/12/17 at 15:15; Stop 02/11/17 at 15:14 Spironolactone (Aldactone) 25 mg QAM PO Last administered on 01/19/17 07:59; Start 01/13/17 at 09:00; Stop 02/12/17 at 08:59 PATRICIA ARMENTA MD Jan 19, 2017 11:11
--- NOTE | 2017-01-19 11:22 | IPNPDOC ---
Subjective Date Seen The patient was seen on 01/19/17. Subjective Chief Complaint/HPI The patient is a 81-year-old female admitted with a reason for visit of Respiratory Failure. Events since last encounter Pt states she feels tired. No other complaints today. resting in bed, at bedside. Pulmonary: Denies: Dyspnea, Cough Cardiovascular: Denies: Chest Pain, Palpitations, Orthopnea, Paroxysmal Noc. Dyspnea, Lt Headedness Gastrointestinal: Denies: Nausea, Vomiting, Abdominal Pain, Diarrhea, Constipation Genitourinary: Denies: Dysuria, Frequency, Incontinence, Retention Objective Physical Examination General Exam: Positive: Alert Eye Exam: Positive: PERRLA ENT Exam: Positive: Atraumatic Chest Exam: Positive: Clear to auscultation, Normal air movement Heart Exam: Positive: Rate Normal, Regular Rhythm, Normal S1, Normal S2, Negative: Murmurs, Rubs Extremity Exam: Positive: Normal pulses, Negative: Clubbing, Cyanosis, Edema Skin Exam: Positive: Nl turgor and temperature Assessment /Plan Problems (1) Respiratory failure Problem Text: * ARU as per [facility]. * PT/OT/ST * Pt with chronic SOB. * Pt is afebrile. WBC WNL. * CXR 01/14/17. Chronic changes as described above with other findings. I cannot exclude the possibility of a slight right pleural effusion although it is doubtful. * Cont with nebs. * request I/S. * BREO added 01/17/17. (2) Seizure Status: Chronic Problem Text: * Keppra 750mg BID (3) CKD (chronic kidney disease) Status: Chronic Problem Text: * SCr 1.40 * trend 1.1-1.4 * Recheck BMP in AM. * Monitor (4) Anemia in CKD (chronic kidney disease) Status: Chronic Problem Text: * Hgb 8.9, trend upward. * Fe studies/B12/folate. * Stool OB x 1 neg. * Monitor. (5) Hypertension Status: Chronic Problem Text: * Cont Norvasc with hold paramters * Irbesartan (6) Diastolic CHF Status: Chronic Problem Text: * po Lasix/Aldactone (7) Hypothyroidism Status: Acute Problem Text: * hypothyroid. (8) Diabetes mellitus type II, uncontrolled Status: Chronic Problem Text: * Levemir * SSI * Januvia (9) Dyslipidemia Status: Chronic Problem Text: * Cont statin (10) Oral thrush Problem Text: * Pt on Nystatin SS Plan/VTE VTE Prophylaxis Ordered?: Yes (SCD/TEDS) VS, I&O, 24H, Fishbone Vital Signs/I&O Vital Signs Date Time Temp Pulse Resp B/P (MAP) Pulse Ox O2 Delivery O2 Flow Rate FiO2 01/19/17 09:30 Room Air 01/19/17 08:02 60 137/65 01/19/17 06:00 98.2 20 97 1.5 I&O- Last 24 Hours up to 6 AM 01/19/17 05:59 Intake Total 1200 ml Output Total 2200 ml Balance -1000 ml Laboratory Data 24H LABS Laboratory Tests 2 01/18/17 11:32: Bedside Glucose (Misc Panel) 155H 01/18/17 16:29: Bedside Glucose (Misc Panel) 160H 01/18/17 20:08: Bedside Glucose (Misc Panel) 233H 01/19/17 06:15: Bedside Glucose (Misc Panel) 265H 01/19/17 07:58: Anion Gap 9, Glomerular Filtration Rate 38.2, Blood Urea Nitrogen 23H, Creatinine 1.40H, Sodium Level 135L, Potassium Level 4.4, Chloride Level 100, Carbon Dioxide Level 26, Calcium Level 8.5L CBC/BMP Laboratory Tests 01/19/17 07:58 Calcium Level 8.5 L Kelly Knox Jan 19, 2017 11:22
[2017-01-19 14:00] VITALS: BP 151/67
[2017-01-19 20:00] VITALS: BP 142/66
[2017-01-19] MEDS: MOM 30ML SUSPENSION UDC PO PRN (20:25)
[2017-01-20] MEDS: IPRATROPIUM 0.5MG/ALBUTEROL 2.5MG INH SOL UD 3ML (DUONEB)(J7620) NEB SCH ×4 (01:01→20:00)
[2017-01-20 05:38] VITALS: BP 130/62
[2017-01-20] MEDS: LEVOTHYROXINE 0.137 MG TAB (137MCG) PO SCH (06:30)
[2017-01-20] MEDS: NYSTATIN 500,000 U/5 ML SUSP UDC SS SCH ×5 (06:31→21:04)
[2017-01-20] MEDS: HumaLOG INSULIN (NovoLOG) PER UNIT SC SCH ×4 (07:26→21:13)
[2017-01-20] MEDS: ENOXAPARIN 40 MG/0.4 ML SYRINGE (J1650) SC SCH (07:27)
[2017-01-20] MEDS: BREO INH SCH ×2 (07:42→20:34)
[2017-01-20] MEDS: amLODIPine 10 MG TAB PO SCH (09:00)
[2017-01-20] MEDS: SPIRONOLACTONE 25 MG TAB PO SCH (09:00)
[2017-01-20] MEDS: IRBESARTAN 150 MG TAB PO SCH (09:00)
[2017-01-20] MEDS: ROSUVASTATIN 10 MG TAB (CRESTOR) PO SCH (09:30)
[2017-01-20] MEDS: SITagliptin 50 MG TAB (JANUVIA) PO SCH (09:32)
[2017-01-20] MEDS: levETIRAcetam 250MG TABLET (KEPPRA) PO SCH ×2 (09:34→21:06)
[2017-01-20] MEDS: FUROSEMIDE 40 MG TAB PO SCH (09:34)
[2017-01-20] MEDS: LEVEMIR (INSULIN DETEMIR) 1 UNITS/0.01ML SC SCH ×2 (09:35→21:06)
--- NOTE | 2017-01-20 11:01 | IPNPDOC ---
[facility] Progress Note DATE OF SERVICE: 01/20/17 DATE OF ADMISSION: January 12, 2017 at 16:00 INPATIENT REHABILITATION ADMISSION DAY: #9 SUBJECTIVE: Patient is a 81-year-old white female with debilitation secondary to seizure, respiratory failure and diabetes mellitus. Patient continuing with PT &OT. Patient mainly noting being tired. No pain problems. ALLERGIES: See Below MEDICATIONS: Reviewed, see below. OBJECTIVE: VITAL SIGNS: Please see below. PHYSICAL EXAMINATION: GENERAL: Obese elderly white female who is alert and fairly well oriented. Speech is fairly clear and appropriate though slightly concrete consistent with Mongolian as a second language. Cognition does seem to be steadily improving and patient appears to be appreciating her situation better. HEENT: Normocephalic/atraumatic with continued healing and near closure of tracheostomy site. No drainage or inflammation seen at ostomy site. CARDIOVASCULAR: Regular rate and rhythm with normal S1 and S2. Good radial pulses. LUNGS: All hunt clear to auscultation. Patient on O2 by nasal cannula maintaining good O2 saturations on low rates of flow. ABDOMEN: Obese with normal bowel sounds in all quadrants. NEUROLOGICAL: Patient with fair to good strength showing some increase in endurance but she does wear out and is very tired after completing therapy. SKIN: Healing trach site. LABORATORY DATA: Reviewed. Please see below. MICROBIOLOGY: Please see below. IMAGING: No new imaging. DVT prophylaxis ordered?: Patient using lovenox, AYUSH hose and ambulation. ASSESSMENT AND PLAN: 1. Debilitation: Patient is showing good effort in therapies and is fatigued at the end of sessions. Hopefully advancing her diet will allow for better nutritional support and muscle building and endurance increasing with the therapies. Some confusion late last night. We will watch. 2. Dysphagia: Patient on a consistent carbohydrate diet with thin liquids tolerating it well. Patient remains very happy about this and hopefully this will improve nutrition. 3. Respiratory: Patient with good pulse oximetry and moving air well in all lung hunt. 4. Diabetes mellitus: Tolerating current regimen with Januvia, Detmir and SSI. Some increase BS with change of diet to one patient enjoys. During the last week , her BS's running about 140 to 250. TIME SPENT: Chart Review, examination and documentation requires greater than 35 minutes. Allergies Coded Allergies: Meloxicam (Verified Allergy, Unknown, 11/15/12) Vital Signs Vital Signs Date Time Temp Pulse Resp B/P (MAP) Pulse Ox O2 Delivery O2 Flow Rate FiO2 01/20/17 09:00 108/68 01/20/17 07:30 Room Air 01/20/17 05:38 98.8 68 18 93 01/19/17 06:00 1.5 Laboratory Data Labs 24H Laboratory Tests 2 01/19/17 12:03: Bedside Glucose (Misc Panel) 117H 01/19/17 16:51: Bedside Glucose (Misc Panel) 268H 01/19/17 20:10: Bedside Glucose (Misc Panel) 157H 01/20/17 06:30: Bedside Glucose (Misc Panel) 243H Current Medications Current Medications Current Medications Acetaminophen (Tylenol Tab) 650 mg Q6HP PRN PO PAIN OR FEVER; Start 01/12/17 at 15:15; Stop 02/11/17 at 15:14 Al Hydrox/Mg Hydrox/Simethicone (Mylanta) 30 ml Q4HP PRN PO DYSPEPSIA; Start at 15:15; Stop 02/11/17 at 15:14 Albuterol Sulfate (Proventil, Ventolin Hfa) 2 puff Q4HP PRN INH SHORTNESS OF BREATH Last administered on 01/13/17 18:39; Start 01/12/17 at 15:45; Stop at 15:44 Albuterol/ Ipratropium (Duoneb (Ipr 0.5mg/Alb 2.5mg)) 3 ml Q2HP PRN NEB SOB/ WHEEZING; Start 01/13/17 at 13:45; Stop 02/12/17 at 13:44 Albuterol/ Ipratropium (Duoneb (Ipr 0.5mg/Alb 2.5mg)) 3 ml RQ6H NEB Last administered on 01/19/17 20:34; Start 01/13/17 at 14:00; Stop 02/12/17 at 13:59 Amlodipine Besylate (Norvasc) 10 mg DAILY PO Last administered on 01/19/17 08: 02; Start 01/13/17 at 09:00; Stop 02/12/17 at 08:59 Dextrose (Dextrose 50%) 25 ml ASDIRECTED PRN IV SEE LABEL COMMENTS; Start 01/12 at 15:45; Stop 02/11/17 at 15:44; Status Cancel Dimenhydrinate (Dramamine) 25 mg Q4HP PRN PO NAUSEA OR VOMITING; Start at 15:45; Stop 02/11/17 at 15:44 Enoxaparin Sodium (Lovenox) 40 mg DAILY SC Last administered on 01/20/17 07:27 ; Start 01/15/17 at 09:00; Stop 01/26/17 at 12:00 Furosemide (Lasix) 40 mg DAILY PO Last administered on 01/20/17 09:34; Start at 09:00; Stop 02/12/17 at 08:59 Glucagon (Glucagon) 1 mg ASDIRECTED PRN SC SEE LABEL COMMENTS; Start 01/12/17 at 15:45; Stop 02/11/17 at 15:44 Glucose (Glucose) 16 GM ASDIRECTED PRN PO SEE LABEL COMMENTS; Start 01/12/17 at 15:45; Stop 02/11/17 at 15:44 Insulin Detemir (Levemir Insulin) 6 units BID SC Last administered on 01/20/17 09:35; Start 01/12/17 at 21:00; Stop 02/11/17 at 20:59 Insulin Human Lispro (HumaLOG INSULIN) See Protocol Table AC SC Last administered on 01/20/17 07:26; Start 01/12/17 at 17:30; Stop 02/11/17 at 17:29 Insulin Human Lispro (HumaLOG INSULIN) See Protocol Table QHS SC ; Start at 21:00; Stop 02/11/17 at 20:59 Irbesartan (Avapro) 300 mg DAILY PO Last administered on 01/19/17 08:01; Start 01/13/17 at 09:00; Stop 02/12/17 at 08:59 Levetiracetam (Keppra) 750 mg BID PO Last administered on 01/20/17 09:34; Start 01/12/17 at 21:00; Stop 02/11/17 at 20:59 Levothyroxine Sodium (Synthroid) 0.137 mg DAILY@06 PO ; Start 01/13/17 at 06:00; Stop 01/13/17 at 06:00; Status DC Levothyroxine Sodium (Synthroid) 0.137 mg DAILY@06 PO Last administered on 06:30; Start 01/13/17 at 06:00; Stop 02/12/17 at 05:59 Lorazepam (Ativan) 1 mg Q1HP PRN IV SEIZURES; Start 01/12/17 at 15:45; Stop 01/19/17 at 15:44; Status Cancel Magnesium Hydroxide (Milk Of Magnesia) 30 ml DAILYPRN PRN PO CONSTIPATION Last administered on 01/19/17 20:25; Start 01/12/17 at 15:15; Stop 02/11/17 at 15:14 Miscellaneous (Unresolved Patient Own Med Order) SEE LABEL COMMENTS UNRESOLVED XX ; Start 01/13/17 at 00:01; Stop 01/17/17 at 16:02; Status DC Miscellaneous (Unresolved Patient Own Med Order) SEE LABEL COMMENTS UNRESOLVED XX ; Start 01/17/17 at 00:01; Stop 01/17/17 at 16:02; Status DC Nystatin (Mycostatin) 5 ml Q6H SS Last administered on 01/18/17 06:22; Start at 18:00; Stop 01/18/17 at 09:17; Status DC Nystatin (Mycostatin) 5 ml Q6H SS Last administered on 01/20/17 06:31; Start at 12:00; Stop 01/29/17 at 12:00 Omeprazole (PriLOSEC) 20 mg DAILY PO ; Start 01/13/17 at 09:00; Stop 02/12/17 at 08:59; Status UNV Patient Own Medication (Patient'S Own Med) 1 ea BID INH Last administered on 07:42; Start 01/17/17 at 21:00; Stop 02/16/17 at 20:59 Patient Own Medication (Patient'S Own Med) [place] 4 puffs inha... BID INH ; Start 01/14/17 at 21:00; Stop 01/17/17 at 16:02; Status DC Rosuvastatin Calcium (Crestor) 10 mg DAILY PO Last administered on 01/20/17 09: 30; Start 01/13/17 at 09:00; Stop 02/12/17 at 08:59 Sitagliptin Phosphate (Januvia) 100 mg DAILY PO Last administered on 01/20/17 09:32; Start 01/13/17 at 09:00; Stop 02/12/17 at 08:59 Sodium Biphosphate/ Sodium Phosphate (Fleet Enema) 1 ea DAILYPRN PRN MT CONSTIPATION; Start 01/12/17 at 15:15; Stop 02/11/17 at 15:14 Spironolactone (Aldactone) 25 mg QAM PO Last administered on 01/19/17 07:59; Start 01/13/17 at 09:00; Stop 02/12/17 at 08:59 PATRICIA ARMENTA MD Jan 20, 2017 11:01
--- NOTE | 2017-01-20 13:02 | IPNPDOC ---
Subjective Date Seen The patient was seen on 01/20/17. Subjective Chief Complaint/HPI The patient is a 81-year-old female admitted with a reason for visit of Respiratory Failure. Events since last encounter Pt states her breathing is at her baseline. O2 weaned off. Feels tired, no other complaints at this time. Objective Physical Examination General Exam: Positive: Alert Eye Exam: Positive: PERRLA ENT Exam: Positive: Atraumatic Chest Exam: Positive: Clear to auscultation, Normal air movement Heart Exam: Positive: Rate Normal, Regular Rhythm, Normal S1, Normal S2, Negative: Murmurs, Rubs Extremity Exam: Positive: Normal pulses, Negative: Clubbing, Cyanosis, Edema Skin Exam: Positive: Nl turgor and temperature Assessment /Plan Problems (1) Respiratory failure Problem Text: * ARU as per Vincent. * PT/OT/ST * Pt with chronic SOB. * Pt is afebrile. WBC WNL. * CXR 01/14/17. Chronic changes as described above with other findings. I cannot exclude the possibility of a slight right pleural effusion although it is doubtful. * Cont with nebs. * request I/S. * BREO added 01/17/17. * O2 weaned off. (2) Seizure Status: Chronic Problem Text: * Keppra 750mg BID (3) CKD (chronic kidney disease) Status: Chronic Problem Text: * SCr 1.40 * trend 1.1-1.4 * Recheck BMP in AM. * Monitor (4) Anemia in CKD (chronic kidney disease) Status: Chronic Problem Text: * Hgb 8.9, trend upward. * Fe studies/B12/folate. * Stool OB x 1 neg. * Monitor. (5) Hypertension Status: Chronic Problem Text: * Cont Norvasc with hold paramters * Irbesartan (6) Diastolic CHF Status: Chronic Problem Text: * po Lasix/Aldactone (7) Hypothyroidism Status: Acute Problem Text: * hypothyroid. (8) Diabetes mellitus type II, uncontrolled Status: Chronic Problem Text: * Levemir * SSI * Januvia (9) Dyslipidemia Status: Chronic Problem Text: * Cont statin (10) Oral thrush Problem Text: * Pt on Nystatin SS Plan/VTE VTE Prophylaxis Ordered?: Yes (SCD/TEDS) VS, I&O, 24H, Fishbone Vital Signs/I&O Vital Signs Date Time Temp Pulse Resp B/P (MAP) Pulse Ox O2 Delivery O2 Flow Rate FiO2 01/20/17 09:00 108/68 01/20/17 07:30 Room Air 01/20/17 05:38 98.8 68 18 93 01/19/17 06:00 1.5 I&O- Last 24 Hours up to 6 AM 01/20/17 06:00 Intake Total 1430 ml Output Total 2150 ml Balance -720 ml Laboratory Data 24H LABS Laboratory Tests 2 01/19/17 16:51: Bedside Glucose (Misc Panel) 268H 01/19/17 20:10: Bedside Glucose (Misc Panel) 157H 01/20/17 06:30: Bedside Glucose (Misc Panel) 243H 01/20/17 11:29: Bedside Glucose (Misc Panel) 182H Kelly nKox Jan 20, 2017 13:02
[2017-01-20 14:00] VITALS: BP 138/68
[2017-01-20 20:00] VITALS: BP 132/63
[2017-01-21] MEDS: IPRATROPIUM 0.5MG/ALBUTEROL 2.5MG INH SOL UD 3ML (DUONEB)(J7620) NEB SCH (01:22)
[2017-01-21] MEDS: NYSTATIN 500,000 U/5 ML SUSP UDC SS SCH (05:42)
[2017-01-21 06:00] VITALS: BP 125/58
[2017-01-21] MEDS ORDERED: LEVOTHYROXINE 137MCG TABLET (0.137MG) PO SCH (06:00)
[2017-01-21 08:15] LABS: MEAN CORPUSCULAR HEMOGLOBIN 27.6 pg (27.0-33.0); MEAN CORPUSCULAR HGB CONC 31.6 g/dl (32.0-36.5); MEAN CORPUSCULAR VOLUME 87.5 fl (80.0-96.0); RED CELL DISTRIBUTION WIDTH 13.9 % (11.5-14.5); WHITE BLOOD COUNT 9.4 K/mm3 (4.0-10.0)
[2017-01-21 08:42] LABS: ALBUMIN 2.6 GM/DL (3.2-5.2); ALBUMIN/GLOBULIN RATIO 0.67 (1.00-1.93); BILIRUBIN,TOTAL 0.2 MG/DL (0.2-1.0); CALCIUM LEVEL 8.5 MG/DL (8.8-10.2); CREATININE FOR GFR 1.34 MG/DL (0.55-1.02); GLOMERULAR FILTRATION RATE 40.2 (>32); POTASSIUM SERUM 4.1 MEQ/L (3.5-5.1); TOTAL PROTEIN 6.5 GM/DL (6.4-8.2)
[2017-01-21] MEDS: LEVEMIR (INSULIN DETEMIR) 1 UNITS/0.01ML SC SCH (09:00)
[2017-01-21] MEDS ORDERED: INSUDET SC (09:01)
[2017-01-21] MEDS: levETIRAcetam 250MG TABLET (KEPPRA) PO SCH (09:21)
[2017-01-21] MEDS: IRBESARTAN 150 MG TAB PO SCH (09:21)
[2017-01-21] MEDS: ROSUVASTATIN 10 MG TAB (CRESTOR) PO SCH (09:21)
[2017-01-21 09:22] VITALS: BP 136/70
[2017-01-21] MEDS: SPIRONOLACTONE 25 MG TAB PO SCH (09:22)
[2017-01-21] MEDS: SITagliptin 50 MG TAB (JANUVIA) PO SCH (09:22)
[2017-01-21] MEDS: FUROSEMIDE 40 MG TAB PO SCH (09:22)
[2017-01-21] MEDS: amLODIPine 10 MG TAB PO SCH (09:22)
[2017-01-21] MEDS: ENOXAPARIN 40 MG/0.4 ML SYRINGE (J1650) SC SCH (09:22)
[2017-01-21] MEDS: HumaLOG INSULIN (NovoLOG) PER UNIT SC SCH (09:24)
[2017-01-21] MEDS ORDERED: SYNT137T7 PO (16:09)
[2017-01-21] MEDS ORDERED: KEPP1TAB2 PO (16:21)
[2017-01-21] MEDS ORDERED: CRES10TA32 PO (16:21)
[2017-01-21] MEDS ORDERED: LASI40TA PO (16:21)
[2017-01-21] MEDS ORDERED: BREO1INH INH (16:21)
[2017-01-21] MEDS ORDERED: DIME50TA2 PO (16:21)
[2017-01-21] MEDS ORDERED: JANU100T PO (16:21)
[2017-01-21] MEDS ORDERED: ALBU17IN INH (16:21)
[2017-01-21] MEDS ORDERED: SPIR25TA2 PO (16:21)
[2017-01-21] MEDS ORDERED: AMLO10TA2 NG (16:21)
[2017-01-21] MEDS ORDERED: LOSA100T36 PO (16:21)
--- NOTE | 2017-01-22 00:33 | PMRDS ---
DATE OF ADMISSION: 01/12/2017 DATE OF DISCHARGE: 01/21/2017 DISCHARGE DIAGNOSES: 1. Rehabilitation and multiple debilitation from seizures and respiratory failure with ventilator dependence. 2. New onset seizure disorder. 3. Respiratory distress/failure with need for tracheostomy and then ventilation for greater than 10 days. 4. Type 2 diabetes mellitus with acute on chronic kidney disease. 5. Atherosclerotic cardiovascular disease with prior transient ischemic attack (TIA), hypertension, diastolic congestive heart failure, hyperlipidemia and bouts of hypotension. 6. Hypothyroidism. HISTORY: The patient who had been in [place] playing cards at a [employer], suddenly developed seizure and then respiratory distress and required intubation and due to difficulty with throat swelling, required tracheostomy. She was transferred to the hospital and was on a ventilator and then weaned. She was started on and stabilized with anesthesia medication as well as pulmonary management. She developed a pneumonia and was placed on antibiotics and cleared. After that, the patient was felt to be stable enough for transfer to [facility] for program of rehabilitation. PROCEDURES PERFORMED ON THIS UNIT: None. DIAGNOSTIC AND LABORATORY DATA: Patient with moderate anemia, discharged with hemoglobin of 8.8 and hematocrit of 27.8, which had been relatively stable throughout her admission and brief period of hyponatremia. Also hypoalbuminemia with admission albumin of 2.4 and discharge of 2.6. HOSPITAL COURSE: Patient admitted to the acute rehab unit on 01/12/2017 and started on a program of physical and occupational and speech therapy. Speech assessing patient's dysphagia along with some dysarthria and decreased communication, which cleared up fairly quickly during this admission, and they were able to sign off on her care and patient was advanced to a consistent carbohydrate diet with thin liquids and physical and occupational therapy. Patient noted to require standby to minimal assist in most activities of daily living (ADLs) on admission but had fair plus standing and static and dynamic balance and unable to do any walking or stairs in physical therapy (PT). Patient transitioned to modified independence and ADLs and mobility with good to good minus static and dynamic standing, respectively, ambulating 190 feet and able to do four stairs and ambulate independently or modified independently with a rolling walker. Patient with some mood problems that improved as her progress and therapy continued. DISCHARGE MEDICATIONS: - detemir insulin 20 units subcu nightly - Ventolin HFA 200 puff/8 grams two puffs every 4 hours as needed for shortness of breath - Norvasc 10 mg daily - dimenhydrinate 50 mg tablet, take a half a tablet by mouth every 4 hours as needed for nausea - Lasix 40 mg daily - irbesartan 300 mg daily - Keppra 750 mg every 12 hours - levothyroxine 137 mcg daily - MiraLAX daily as needed for constipation - Crestor 10 mg daily - Januvia 100 mg daily - spironolactone 25 mg daily - Zenhale four puffs twice a day COMPLICATIONS: None. DISCHARGE PLAN: Patient discharged to home with . It is recommended that she should be referred to pulmonary rehabilitation. She is to see her primary care provider, Dr. Ahmadi, within 2 weeks and he may do the spirometry testing and referral the pulmonary rehabilitation. Patient is to return to a regular diet. She is also to check blood sugars before meals and before bedtime and keep a log of this and turn the log over to Dr. Ahmadi to help him adjust her diabetic management program at home. Time spent on discharge: Greater than 35 minutes.
== END 2017-01-21 11:40 | disposition home or self-care (01) | DRG 947 ==
LOC: M PM&R 16:00
PROVIDERS: ADMIT Physical Medicine & Rehabilitation; ATTEND Physical Medicine & Rehabilitation
DX: R53.81 Other malaise (principal); J18.9 Pneumonia, unspecified organism; J96.90 Respiratory failure, unspecified, unspecified whether with hypoxia or hypercapnia; I50.30 Unspecified diastolic (congestive) heart failure; I13.0 Hypertensive heart and chronic kidney disease with heart failure and stage 1 through stage 4 chronic kidney disease, or unspecified chronic kidney disease; B37.0 Candidal stomatitis; R26.9 Unspecified abnormalities of gait and mobility; G40.909 Epilepsy, unspecified, not intractable, without status epilepticus; E03.9 Hypothyroidism, unspecified; E11.9 Type 2 diabetes mellitus without complications; Z79.899 Other long term (current) drug therapy; Z93.0 Tracheostomy status; Z79.4 Long term (current) use of insulin; D63.1 Anemia in chronic kidney disease; N18.9 Chronic kidney disease, unspecified; E78.5 Hyperlipidemia, unspecified; I25.10 Atherosclerotic heart disease of native coronary artery without angina pectoris; R13.10 Dysphagia, unspecified; R47.1 Dysarthria and anarthria

== ENCOUNTER 2017-01-25 09:01 | Emergency (ER) | payer MEDICARE, OTHER ==
[~2017-01-25] VITALS: Ht 157.5 cm; Wt 76.0 kg
[~2017-01-25 09:01] MED LIST changes: +CRES10TA32 PO; +INSUDET SC; +SYNT137T7 PO
[2017-01-25] MEDS ORDERED: SENN8.6C PO (09:17)
--- NOTE | 2017-01-25 10:46 | REP ---
Acute abdominal series four views including PA chest, upright abdomen and two supine views of the abdomen: Comparison is the portable supine abdomen of 01/11/2017. PA chest: Comparison is 01[birth year]08/1926 and 2016. The right costophrenic angle is effaced suggestive of a right pleural effusion. The lung hunt otherwise clear. 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 Cardiac size normal. There is no free subdiaphragmatic air. Abdomen, supine upright views: There are air fluid levels in mildly dilated small bowel loops. The bowel dilatation has decreased from the portable supine abdomen of 01/11/2017. There are surgical clips in the right upper quadrant. There are numerous calcifications in the pelvis, phleboliths versus inspissated material in the colonic diverticula versus combination. There is a large fecal bolus in the rectal ampulla. Signed by Vinh López MD 01/25/2017 10:38 A
[2017-01-25] MEDS ORDERED: FLEET ENEMA PR PRN (11:15)
[2017-01-25] MEDS ORDERED: EMLA CREAM 5GM (LIDOCAINE/PRILOCAINE) TOP ONE (11:45)
[2017-01-25] MEDS ORDERED: DULC10SU2 PR (11:59)
[2017-01-25] MEDS ORDERED: MIRA3350 PO (11:59)
[2017-01-25 12:33] VITALS: BP 125/58
--- NOTE | 2017-01-26 16:06 | ECGEPIP ---
Stationary ECG Study [facility] - ED Test Date: 2017-01-25 Pat Name: COLTON MACIAS Department: Room: - Gender: F Sap Hana Architect: tammie : 1935 Requested By: Bari Ascencio Order Number: [id number] Reading MD: Alana Burgos Measurements Intervals [place] Rate: 59 P: 73 [place]: 197 QRS: -38 QRSD: 110 T: 58 QT: 390 QTc: 388 Interpretive Statements SINUS BRADYCARDIA MARKED LEFT AXIS DEVIATION MODERATE INTRAVENTRICULAR CONDUCTION DELAY PRWP SIMILAR 01/14/17 Electronically Signed On 01-26-2017 16:05:52 EDT by Alana Burgos
== END 2017-01-25 12:35 | disposition home or self-care (01) ==
LOC: M ED 09:52
DX: K56.41 Fecal impaction (principal); E11.9 Type 2 diabetes mellitus without complications; G43.909 Migraine, unspecified, not intractable, without status migrainosus; I25.10 Atherosclerotic heart disease of native coronary artery without angina pectoris; I10 Essential (primary) hypertension; E03.9 Hypothyroidism, unspecified; Z86.73 Personal history of transient ischemic attack (TIA), and cerebral infarction without residual deficits; Z87.09 Personal history of other diseases of the respiratory system; Z90.2 Acquired absence of lung [part of]; Z90.79 Acquired absence of other genital organ(s); Z90.49 Acquired absence of other specified parts of digestive tract; Z87.891 Personal history of nicotine dependence; Z79.4 Long term (current) use of insulin; Z79.82 Long term (current) use of aspirin; Z79.51 Long term (current) use of inhaled steroids; Z79.899 Other long term (current) drug therapy; Z88.8 Allergy status to other drugs, medicaments and biological substances

== ENCOUNTER → 2017-02-04 | Outpatient (REF) | payer MEDICARE, OTHER ==
[~2017-02-04] MED LIST changes: +DULC10SU2 PR; +SENN8.6C PO
== END ==
LOC: M LAB REF 17:15
PROVIDERS: ATTEND Nurse Practitioner Family
DX: R56.9 Unspecified convulsions (principal)

== ENCOUNTER → 2017-02-18 | Outpatient (REF) | payer MEDICARE, OTHER ==
[~2017-02-18] MED LIST changes: +BYDU1INJ; +DIME50TA PO; -DIME50TA2 PO; -LEVO125T3 PO; +LEVO125T4 PO; +LIDO4CRE2 EX; +LIDO4PAD TOP; +MACR100C43 PO; +NEUR100C PO; +PROAAER10; +VALA1TAB2 PO
== END ==
LOC: M LAB REF 16:46
PROVIDERS: ATTEND Nurse Practitioner Family
DX: R56.9 Unspecified convulsions (principal)

== ENCOUNTER 2017-04-07 12:41 | Emergency (ER) | payer MEDICARE, OTHER ==
[~2017-04-07] VITALS: Ht 157.5 cm; Wt 70.0 kg
[2017-04-07 12:41] VITALS: BP 105/59
[~2017-04-07 12:41] MED LIST changes: -BYDU1INJ; -LIDO4CRE2 EX; -LIDO4PAD TOP; -MACR100C43 PO; -NEUR100C PO; -PROAAER10; -VALA1TAB2 PO
[2017-04-07] MEDS ORDERED: PROAAER10 (12:53)
[2017-04-07] MEDS ORDERED: BYDU1INJ (12:53)
[2017-04-07] MEDS ORDERED: valACYclovir HCL 500 MG TAB PO ONE (13:15)
[2017-04-07] MEDS ORDERED: VALA1TAB2 PO (13:24)
== END 2017-04-07 13:34 | disposition home or self-care (01) ==
LOC: M ED 12:41
DX: B02.9 Zoster without complications (principal); E11.9 Type 2 diabetes mellitus without complications; I50.9 Heart failure, unspecified; N18.9 Chronic kidney disease, unspecified; R56.9 Unspecified convulsions; Z86.73 Personal history of transient ischemic attack (TIA), and cerebral infarction without residual deficits; Z79.899 Other long term (current) drug therapy; Z79.84 Long term (current) use of oral hypoglycemic drugs; Z79.51 Long term (current) use of inhaled steroids; Z88.8 Allergy status to other drugs, medicaments and biological substances

== ENCOUNTER → 2017-05-04 | Outpatient (REF) | payer MEDICARE, OTHER ==
[~2017-05-04] MED LIST changes: +BYDU1INJ; +LIDO4CRE2 EX; +LIDO4PAD TOP; +MACR100C43 PO; +NEUR100C PO; +PROAAER10; +VALA1TAB2 PO
== END ==
LOC: M LAB REF 16:54
PROVIDERS: ATTEND Nurse Practitioner Family
DX: R52 Pain, unspecified (principal)

== ENCOUNTER 2017-06-04 08:33 | Emergency (ER) | payer MEDICARE, OTHER ==
[~2017-06-04] VITALS: Ht 157.5 cm; Wt 69.1 kg
[~2017-06-04 08:33] MED LIST changes: -LIDO4CRE2 EX; -LIDO4PAD TOP; -MACR100C43 PO; -NEUR100C PO
[2017-06-04] MEDS ORDERED: NEUR100C PO (09:14)
[2017-06-04] MEDS ORDERED: LIDO4PAD TOP (09:14)
[2017-06-04] MEDS ORDERED: MACR100C43 PO ×2 (10:34→10:51)
[2017-06-04] MEDS ORDERED: LIDO4CRE2 EX ×2 (10:35→10:51)
[2017-06-04 10:51] VITALS: BP 145/77
== END 2017-06-04 10:53 | disposition home or self-care (01) ==
LOC: M ED 08:33
DX: N39.0 Urinary tract infection, site not specified (principal); B02.9 Zoster without complications; Z88.8 Allergy status to other drugs, medicaments and biological substances; Z87.891 Personal history of nicotine dependence; Z79.899 Other long term (current) drug therapy

== ENCOUNTER → 2017-09-15 | Outpatient (REF) | payer MEDICARE, OTHER ==
[2017-09-19 00:06] LABS: LEVETIRACETAM (KEPPRA) 36.5 ug/mL (10.0-40.0)
== END ==
LOC: M LAB REF 17:42
DX: G40.89 Other seizures (principal)
CPT/HCPCS: 80180

== ENCOUNTER → 2017-12-13 | Outpatient (REF) | payer MEDICARE, OTHER ==
[2017-12-15 14:14] LABS: LEVETIRACETAM (KEPPRA) 35.1 ug/mL (10.0-40.0)
== END ==
LOC: M LAB REF 12:07
DX: G40.89 Other seizures (principal)

== ENCOUNTER → 2017-12-13 | Outpatient (REF) | payer MEDICARE, OTHER ==
[2017-12-13 20:17] LABS: FOLATE 7.4 NG/ML; VITAMIN B12 LEVEL 269 PG/ML
== END ==
LOC: M LAB REF 19:31
DX: R41.81 Age-related cognitive decline (principal); G40.89 Other seizures; Z79.899 Other long term (current) drug therapy
CPT/HCPCS: 82746

== ENCOUNTER 2018-05-16 18:21 | Inpatient (IN) | payer MEDICARE, OTHER ==
[2018-05-16] MEDS: IPRATROPIUM 0.5MG/ALBUTEROL 2.5MG INH SOL UD 3ML (DUONEB)(J7620) NEB ×3 (19:57→20:38)
[2018-05-16 20:21] LABS: BASO # 0.1 10^3/uL (0.0-0.2); BASO % 0.6 % (0.0-1.0); EOS # 0.4 10^3/uL (0.0-0.50); EOS % 3.6 % (0.0-3.0); HEMATOCRIT 41.5 % (36.0-47.0); HEMOGLOBIN 13.5 g/dl (12.0-15.5); IMMATURE GRANULOCYTE % 1.2 % (0-3.0); LYMPH # 2.1 10^3/uL (1.5-4.5); LYMPH % 20.8 % (24.0-44.0); MEAN CORPUSCULAR HEMOGLOBIN 29.5 pg (27.0-33.0); MEAN CORPUSCULAR HGB CONC 32.5 g/dl (32.0-36.5); MEAN CORPUSCULAR VOLUME 90.6 fl (80.0-96.0); MONO # 0.9 10^3/uL (0.0-0.8); MONO % 8.8 % (0.0-5.0); NEUTROPHILS # 6.7 10^3/uL (1.8-7.7); PLATELET COUNT, AUTOMATED 177 10^3/uL (150-450); RED BLOOD COUNT 4.58 10^6/uL (4.00-5.40); RED CELL DISTRIBUTION WIDTH 13.5 % (11.5-14.5); WHITE BLOOD COUNT 10.3 10^3/uL (4.0-10.0)
[2018-05-16 21:00] LABS: ABG BASE EXCESS 0.8 (-2.0-2.0); ABG HCO3 26.4 MEQ/L (22.0-26.0); ABG O2 SATURATION 93.8 % (95.0-99.0); ABG PARTIAL PRESSURE CO2 45.9 mmHg (35.0-45.0); ABG PARTIAL PRESSURE O2 66.9 mmHg (75.0-100.0); ABG STANDARD HCO3 25.1 MEQ/L (22.0-26.0); ABG TOTAL CO2 27.8 MEQ/L (23.0-31.0); ABG pH (ARTERIAL) 7.377 UNITS (7.350-7.450)
[2018-05-16 21:03] LABS: LACTIC ACID SEPSIS PROTOCOL 2.1 MMOL/L (0.4-2.0)
[2018-05-16 21:13] LABS: ANION GAP 8 MEQ/L (8-16); BLOOD UREA NITROGEN 14 MG/DL (7-18); CALCIUM LEVEL 8.9 MG/DL (8.8-10.2); CARBON DIOXIDE LEVEL 29 MEQ/L (21-32); CHLORIDE LEVEL 105 MEQ/L (98-107); CREATININE FOR GFR 1.39 MG/DL (0.55-1.30); GLOMERULAR FILTRATION RATE 38.5 (>32); GLUCOSE, FASTING 333 MG/DL (70-100); POTASSIUM SERUM 4.4 MEQ/L (3.5-5.1); SODIUM LEVEL 142 MEQ/L (136-145)
[2018-05-16 21:14] LABS: ALBUMIN 3.4 GM/DL (3.2-5.2); ALKALINE PHOSPHATASE 118 U/L (45-117); ALT/SGPT 21 U/L (12-78); AST/SGOT 13 U/L (7-37); BILIRUBIN,DIRECT 0.1 MG/DL (0.0-0.2); BILIRUBIN,TOTAL 0.4 MG/DL (0.2-1.0); CPK CREATINE PHOSPHOKINASE 144 U/L (26-192); MB/CK RELATIVE INDEX 1.25 (< OR =4); NT-PRO BNP 1170 PG/ML (<450); TOTAL PROTEIN 6.8 GM/DL (6.4-8.2); TROPONIN I 0.02 NG/ML (< 0.10)
[2018-05-16] MEDS: AZITHROMYCIN 250 MG TAB PO (22:16)
[2018-05-16] MEDS: methylPREDNISolone INJ 125 MG/2 ML VIAL (J2930) IV (22:16)
[2018-05-16] MEDS ORDERED: DEXTROSE 50% 50 ML SYRINGE IV (23:00)
[2018-05-16] MEDS ORDERED: GLUCAGON FOR INJ 1 MG VIAL (J1610) SC (23:00)
[2018-05-16] MEDS ORDERED: IPRATROPIUM 0.5MG/ALBUTEROL 2.5MG INH SOL UD 3ML (DUONEB)(J7620) NEB (23:00)
[2018-05-16] MEDS ORDERED: ACETAMINOPHEN TAB 650MG DOSE (2X325MG) PO (23:00)
[2018-05-16] MEDS ORDERED: GLUCOSE 4 GM CHEW TABLET PO (23:00)
[2018-05-17 00:54] LABS: BEDSIDE GLUCOSE 427 MG/DL (83-110)
[2018-05-17] MEDS: DOXYCYCLINE HYCLATE 100 MG TAB PO ×3 (01:12→20:14)
[2018-05-17] MEDS: FERROUS SULFATE 325MG TAB PO ×3 (01:12→20:15)
[2018-05-17] MEDS: PREGABALIN 75 MG CAP(LYRICA) PO ×3 (01:12→20:16)
[2018-05-17] MEDS: levETIRAcetam 250MG TABLET (KEPPRA) PO ×3 (01:12→20:15)
[2018-05-17] MEDS: HumaLOG INSULIN (NovoLOG) PER UNIT SC ×5 (01:13→20:16)
[2018-05-17] MEDS: LEVEMIR (INSULIN DETEMIR) 1 UNITS/0.01ML SC ×2 (01:13→20:17)
[2018-05-17 05:16] LABS: BEDSIDE GLUCOSE 372 MG/DL (83-110)
[2018-05-17] MEDS: HEPARIN SOD (PORCINE) 5000 UNITS/ML VIAL SC ×4 (05:17→20:17)
[2018-05-17] MEDS: methylPREDNISolone INJ 40 MG/1 ML VIAL (J2920) IV ×2 (05:17→18:00)
[2018-05-17] MEDS: LEVOTHYROXINE 137MCG TABLET (0.137MG) PO ×2 (05:17→05:39)
[2018-05-17 05:26] LABS: BEDSIDE GLUCOSE 402 MG/DL (83-110)
[2018-05-17] MEDS: IPRATROPIUM 0.5MG/ALBUTEROL 2.5MG INH SOL UD 3ML (DUONEB)(J7620) NEB ×4 (07:21→19:59)
[2018-05-17 07:44] LABS: HEMATOCRIT 39.1 % (36.0-47.0); HEMOGLOBIN 12.5 g/dl (12.0-15.5); MEAN CORPUSCULAR HEMOGLOBIN 29.1 pg (27.0-33.0); MEAN CORPUSCULAR VOLUME 91.1 fl (80.0-96.0); PLATELET COUNT, AUTOMATED 185 10^3/uL (150-450); RED BLOOD COUNT 4.29 10^6/uL (4.00-5.40); RED CELL DISTRIBUTION WIDTH 13.6 % (11.5-14.5); WHITE BLOOD COUNT 9.6 10^3/uL (4.0-10.0)
[2018-05-17 08:07] LABS: ANION GAP 9 MEQ/L (8-16); BLOOD UREA NITROGEN 18 MG/DL (7-18); CALCIUM LEVEL 8.9 MG/DL (8.8-10.2); CARBON DIOXIDE LEVEL 26 MEQ/L (21-32); CHLORIDE LEVEL 106 MEQ/L (98-107); CREATININE FOR GFR 1.59 MG/DL (0.55-1.30); GLOMERULAR FILTRATION RATE 32.9 (>32); GLUCOSE, FASTING 401 MG/DL (70-100); POTASSIUM SERUM 4.5 MEQ/L (3.5-5.1); SODIUM LEVEL 141 MEQ/L (136-145)
[2018-05-17] MEDS: SENOKOT S TAB PO ×2 (08:45→20:15)
[2018-05-17] MEDS: SITagliptin 50 MG TAB (JANUVIA) PO (08:45)
[2018-05-17] MEDS: ASPIRIN 81 MG ENTERIC TAB PO (08:46)
[2018-05-17] MEDS: FLUBLOK(EGG FREE)(QUAD)INFLUENZA VACC 0.5ML SYRINGE (90682)18YRS&OLDER IM (08:48)
[2018-05-17] MEDS: LOSARTAN 50 MG TAB PO (08:53)
[2018-05-17 08:59] LABS: ABG BASE EXCESS -3.4 (-2.0-2.0); ABG HCO3 21.6 MEQ/L (22.0-26.0); ABG O2 SATURATION 95.6 % (95.0-99.0); ABG PARTIAL PRESSURE CO2 38.8 mmHg (35.0-45.0); ABG PARTIAL PRESSURE O2 74.5 mmHg (75.0-100.0); ABG STANDARD HCO3 21.6 MEQ/L (22.0-26.0); ABG TOTAL CO2 22.8 MEQ/L (23.0-31.0); ABG pH (ARTERIAL) 7.364 UNITS (7.350-7.450)
[2018-05-17 11:56] LABS: BEDSIDE GLUCOSE 562 MG/DL (83-110)
[2018-05-17 16:45] LABS: BEDSIDE GLUCOSE 440 MG/DL (83-110)
[2018-05-17 20:04] LABS: BEDSIDE GLUCOSE 339 MG/DL (83-110)
[2018-05-18] MEDS: methylPREDNISolone INJ 40 MG/1 ML VIAL (J2920) IV (05:30)
[2018-05-18] MEDS: HEPARIN SOD (PORCINE) 5000 UNITS/ML VIAL SC ×3 (05:30→21:27)
[2018-05-18] MEDS: LEVOTHYROXINE 137MCG TABLET (0.137MG) PO (05:30)
[2018-05-18 05:39] LABS: BEDSIDE GLUCOSE 477 MG/DL (83-110)
[2018-05-18] MEDS: IPRATROPIUM 0.5MG/ALBUTEROL 2.5MG INH SOL UD 3ML (DUONEB)(J7620) NEB ×4 (07:18→20:35)
[2018-05-18 07:23] LABS: HEMATOCRIT 40.3 % (36.0-47.0); MEAN CORPUSCULAR HEMOGLOBIN 29.4 pg (27.0-33.0); MEAN CORPUSCULAR HGB CONC 32.3 g/dl (32.0-36.5); MEAN CORPUSCULAR VOLUME 91.2 fl (80.0-96.0); PLATELET COUNT, AUTOMATED 206 10^3/uL (150-450); RED BLOOD COUNT 4.42 10^6/uL (4.00-5.40); RED CELL DISTRIBUTION WIDTH 13.7 % (11.5-14.5); WHITE BLOOD COUNT 19.3 10^3/uL (4.0-10.0)
[2018-05-18] MEDS: ASPIRIN 81 MG ENTERIC TAB PO (07:40)
[2018-05-18] MEDS: DOXYCYCLINE HYCLATE 100 MG TAB PO ×2 (07:48→21:28)
[2018-05-18] MEDS: FERROUS SULFATE 325MG TAB PO ×2 (07:49→21:28)
[2018-05-18] MEDS: SENOKOT S TAB PO ×2 (07:49→21:28)
[2018-05-18] MEDS: levETIRAcetam 250MG TABLET (KEPPRA) PO ×2 (07:49→21:28)
[2018-05-18] MEDS: SITagliptin 50 MG TAB (JANUVIA) PO (07:49)
[2018-05-18] MEDS: PREGABALIN 75 MG CAP(LYRICA) PO ×2 (07:49→21:28)
[2018-05-18] MEDS: LOSARTAN 50 MG TAB PO (07:50)
[2018-05-18] MEDS: HumaLOG INSULIN (NovoLOG) PER UNIT SC ×4 (07:50→21:00)
[2018-05-18 07:55] LABS: ANION GAP 9 MEQ/L (8-16); BLOOD UREA NITROGEN 33 MG/DL (7-18); CALCIUM LEVEL 8.9 MG/DL (8.8-10.2); CARBON DIOXIDE LEVEL 26 MEQ/L (21-32); CHLORIDE LEVEL 102 MEQ/L (98-107); CREATININE FOR GFR 2.02 MG/DL (0.55-1.30); GLUCOSE, FASTING 472 MG/DL (70-100); POTASSIUM SERUM 4.9 MEQ/L (3.5-5.1); SODIUM LEVEL 137 MEQ/L (136-145)
[2018-05-18 12:14] LABS: BEDSIDE GLUCOSE 287 MG/DL (83-110)
[2018-05-18 16:31] LABS: BEDSIDE GLUCOSE 303 MG/DL (83-110)
[2018-05-18] MEDS: LEVEMIR (INSULIN DETEMIR) 1 UNITS/0.01ML SC (21:27)
[2018-05-18 21:59] LABS: BEDSIDE GLUCOSE 224 MG/DL (83-110)
[2018-05-19] MEDS: LEVOTHYROXINE 137MCG TABLET (0.137MG) PO (06:11)
[2018-05-19] MEDS: HEPARIN SOD (PORCINE) 5000 UNITS/ML VIAL SC (06:12)
[2018-05-19] MEDS: IPRATROPIUM 0.5MG/ALBUTEROL 2.5MG INH SOL UD 3ML (DUONEB)(J7620) NEB ×2 (07:05→11:34)
[2018-05-19 07:25] LABS: HEMATOCRIT 36.5 % (36.0-47.0); HEMOGLOBIN 11.9 g/dl (12.0-15.5); MEAN CORPUSCULAR HEMOGLOBIN 29.5 pg (27.0-33.0); MEAN CORPUSCULAR HGB CONC 32.6 g/dl (32.0-36.5); MEAN CORPUSCULAR VOLUME 90.3 fl (80.0-96.0); PLATELET COUNT, AUTOMATED 202 10^3/uL (150-450); RED BLOOD COUNT 4.04 10^6/uL (4.00-5.40); RED CELL DISTRIBUTION WIDTH 13.7 % (11.5-14.5); WHITE BLOOD COUNT 16.8 10^3/uL (4.0-10.0)
[2018-05-19 07:47] LABS: ANION GAP 8 MEQ/L (8-16); BLOOD UREA NITROGEN 39 MG/DL (7-18); CARBON DIOXIDE LEVEL 26 MEQ/L (21-32); CHLORIDE LEVEL 107 MEQ/L (98-107); CREATININE FOR GFR 1.64 MG/DL (0.55-1.30); GLOMERULAR FILTRATION RATE 31.8 (>32); GLUCOSE, FASTING 239 MG/DL (70-100); POTASSIUM SERUM 4.3 MEQ/L (3.5-5.1); SODIUM LEVEL 141 MEQ/L (136-145)
[2018-05-19] MEDS: HumaLOG INSULIN (NovoLOG) PER UNIT SC ×2 (08:00→12:03)
[2018-05-19] MEDS: predniSONE 20 MG TAB PO (08:01)
[2018-05-19] MEDS: PREGABALIN 75 MG CAP(LYRICA) PO (08:01)
[2018-05-19] MEDS: levETIRAcetam 250MG TABLET (KEPPRA) PO (08:01)
[2018-05-19] MEDS: ASPIRIN 81 MG ENTERIC TAB PO (08:02)
[2018-05-19] MEDS: SITagliptin 50 MG TAB (JANUVIA) PO (08:02)
[2018-05-19] MEDS: FERROUS SULFATE 325MG TAB PO (08:02)
[2018-05-19] MEDS: SENOKOT S TAB PO (08:02)
[2018-05-19] MEDS: DOXYCYCLINE HYCLATE 100 MG TAB PO (08:02)
[2018-05-19] MEDS: LOSARTAN 50 MG TAB PO (08:04)
[2018-05-19 11:10] LABS: BEDSIDE GLUCOSE 283 MG/DL (83-110)
== END 2018-05-19 12:35 | disposition home or self-care (01) | DRG 192 ==
LOC: M MS5PR 05-18 14:18 → M MS4PR 05-17 00:30 → M ED 18:21 → M ED INP 22:51
DX: J44.1 Chronic obstructive pulmonary disease with (acute) exacerbation (principal); I12.9 Hypertensive chronic kidney disease with stage 1 through stage 4 chronic kidney disease, or unspecified chronic kidney disease; E11.22 Type 2 diabetes mellitus with diabetic chronic kidney disease; N18.3 Chronic kidney disease, stage 3 (moderate); E03.9 Hypothyroidism, unspecified; E78.5 Hyperlipidemia, unspecified; D50.9 Iron deficiency anemia, unspecified; G40.909 Epilepsy, unspecified, not intractable, without status epilepticus; Z90.710 Acquired absence of both cervix and uterus; Z95.0 Presence of cardiac pacemaker; Z87.891 Personal history of nicotine dependence; Z79.51 Long term (current) use of inhaled steroids; Z79.82 Long term (current) use of aspirin; Z79.4 Long term (current) use of insulin; Z79.899 Other long term (current) drug therapy; T38.0X5A Adverse effect of glucocorticoids and synthetic analogues, initial encounter; R73.9 Hyperglycemia, unspecified

== ENCOUNTER → 2018-06-08 | Outpatient (REF) | payer MEDICARE, OTHER ==
[2018-06-08 17:57] LABS: AMYLASE 32 U/L (25-115)
[2018-06-08 17:57] LABS: FERRITIN 49 NG/ML (8-252); IRON (FE) 72 UG/DL (50-170); LIPASE 107 U/L (73-393); PERCENT SATURATION 24.4 % (13.2-45.0); TOTAL IRON BINDING CAPACITY 295 UG/DL (250-450)
== END ==
LOC: M LAB REF 16:54
DX: Z86.010 Personal history of colon polyps (principal); R10.9 Unspecified abdominal pain; D64.9 Anemia, unspecified
CPT/HCPCS: 82150

== ENCOUNTER 2018-07-26 14:47 | Emergency (ER) | payer MEDICARE, OTHER ==
[2018-07-26 16:21] LABS: BASO # 0.1 10^3/uL (0.0-0.2); BASO % 0.7 % (0.0-1.0); EOS # 0.3 10^3/uL (0.0-0.50); EOS % 3.1 % (0.0-3.0); HEMATOCRIT 39.5 % (36.0-47.0); HEMOGLOBIN 12.8 g/dl (12.0-15.5); IMMATURE GRANULOCYTE % 0.4 % (0-3.0); LYMPH # 1.9 10^3/uL (1.5-4.5); LYMPH % 23.9 % (24.0-44.0); MEAN CORPUSCULAR HEMOGLOBIN 29.5 pg (27.0-33.0); MEAN CORPUSCULAR HGB CONC 32.4 g/dl (32.0-36.5); MONO # 0.7 10^3/uL (0.0-0.8); MONO % 9.1 % (0.0-5.0); NEUTROPHILS % 62.8 % (36.0-66.0); PLATELET COUNT, AUTOMATED 241 10^3/uL (150-450); RED BLOOD COUNT 4.34 10^6/uL (4.00-5.40)
[2018-07-26 16:33] LABS: INR 0.97
[2018-07-26 16:38] LABS: PARTIAL THROMBOPLASTIN TIME 29.7 SECONDS (25.4-37.6)
[2018-07-26 16:44] LABS: ALBUMIN/GLOBULIN RATIO 0.83 (1.00-1.93); ALKALINE PHOSPHATASE 102 U/L (45-117); ALT/SGPT 18 U/L (12-78); ANION GAP 7 MEQ/L (8-16); AST/SGOT 20 U/L (7-37); BILIRUBIN,DIRECT < 0.1 MG/DL (0.0-0.2); BILIRUBIN,TOTAL 0.4 MG/DL (0.2-1.0); BLOOD UREA NITROGEN 13 MG/DL (7-18); CALCIUM LEVEL 8.3 MG/DL (8.8-10.2); CARBON DIOXIDE LEVEL 27 MEQ/L (21-32); CHLORIDE LEVEL 101 MEQ/L (98-107); CREATININE FOR GFR 1.64 MG/DL (0.55-1.30); GLOMERULAR FILTRATION RATE 31.8 (>32); GLUCOSE, FASTING 384 MG/DL (70-100); LIPASE 135 U/L (73-393); SODIUM LEVEL 135 MEQ/L (136-145); TOTAL PROTEIN 6.6 GM/DL (6.4-8.2)
[2018-07-26 17:28] LABS: KETONE, URINE AUTO RFX TRACE mg/dL (NEGATIVE); MUCUS, URINE RFX SMALL (NEGATIVE); NITRITE, URINE AUTO RFX NEGATIVE (NEGATIVE); RBC, URINE AUTO RFX 4 /HPF (0-3); SPECIFIC GRAVITY UR AUTO RFX 1.021 (1.002-1.035); SQUAM EPITHELIAL CELL UR AURFX 1 /HPF (0-6)
[2018-07-26 17:43] LABS: LEUKOCYTE ESTERASE UR AUTO RFX 1+ (NEGATIVE); WBC, URINE AUTO RFX 80 /HPF (0-3)
[2018-07-26] MEDS: GASTROGRAFIN SOLUTION 30ML PO ×2 (17:57→18:30)
[2018-07-26] MEDS: ONDANSETRON 4MG/2ML VIAL (J2405) IV (17:57)
[2018-07-26] MEDS: MECLIZINE 25 MG TABLET PO (17:58)
[2018-07-26 18:35] LABS: CPK CREATINE PHOSPHOKINASE 97 U/L (26-192); MB/CK RELATIVE INDEX 1.13 (< OR =4); TROPONIN I < 0.02 NG/ML (< 0.10)
== END 2018-07-26 21:19 | disposition home or self-care (01) ==
LOC: M ED 14:47
DX: N39.0 Urinary tract infection, site not specified (principal); E11.9 Type 2 diabetes mellitus without complications; I12.9 Hypertensive chronic kidney disease with stage 1 through stage 4 chronic kidney disease, or unspecified chronic kidney disease; J44.9 Chronic obstructive pulmonary disease, unspecified; N18.9 Chronic kidney disease, unspecified; G40.909 Epilepsy, unspecified, not intractable, without status epilepticus; E07.9 Disorder of thyroid, unspecified; D50.9 Iron deficiency anemia, unspecified; Z95.0 Presence of cardiac pacemaker; Z79.899 Other long term (current) drug therapy; Z79.890 Hormone replacement therapy; Z79.82 Long term (current) use of aspirin; Z88.8 Allergy status to other drugs, medicaments and biological substances; Z87.891 Personal history of nicotine dependence
CPT/HCPCS: J2405

== ENCOUNTER 2018-09-30 14:38 | Emergency (ER) | payer MEDICARE, OTHER ==
[~2018-09-30] VITALS: Ht 157.5 cm; Wt 85.9 kg
[~2018-09-30 14:38] MED LIST changes: -AMLO10TA2 NG; +AMLO10TA5 NG; +AMLO10TA5 PO; +BYDU1INJ SC; +CIPR-249 PO; +DOXY100T PO; +FERR1TAB8 PO; +FURO20TA2 PO; +KEPP250T5 PO; +LASI20TA3 PO; -LASI40TA PO; +LASI40TA9 PO; +LEVO137T2 PO; +LIDO4CRE2 EX; +LIDO4PAD TOP; +LOSA100T50 PO; +LOSA50TA88 PO; +LYRI150C PO; +MACR100C43 PO; +METO1TAB87 PO; +NEUR100C PO; +OMEP20CA3 PO; +PRED10TA2 PO; +PROAAER10 INH; +SPIR-10 PO; -SPIR25TA2 PO; +TYLE325C PO
[2018-09-30 16:49] LABS: HEMATOCRIT 40.5 % (36.0-47.0); HEMOGLOBIN 12.9 g/dl (12.0-15.5); MEAN CORPUSCULAR HEMOGLOBIN 28.7 pg (27.0-33.0); MEAN CORPUSCULAR HGB CONC 31.9 g/dl (32.0-36.5); MEAN CORPUSCULAR VOLUME 90.2 fl (80.0-96.0); PLATELET COUNT, AUTOMATED 198 10^3/uL (150-450); RED BLOOD COUNT 4.49 10^6/uL (4.00-5.40); WHITE BLOOD COUNT 9.6 10^3/uL (4.0-10.0)
[2018-09-30 17:16] LABS: ALBUMIN 3.1 GM/DL (3.2-5.2); BILIRUBIN,TOTAL 0.4 MG/DL (0.2-1.0); CALCIUM LEVEL 8.4 MG/DL (8.8-10.2); CREATININE FOR GFR 1.44 MG/DL (0.55-1.30); GLOMERULAR FILTRATION RATE 36.9 (>32); POTASSIUM SERUM 4.6 MEQ/L (3.5-5.1); TOTAL PROTEIN 6.5 GM/DL (6.4-8.2)
[2018-09-30] MEDS ORDERED: CITRSOL8 PO (18:14)
[2018-09-30 19:16] VITALS: BP 190/85
--- NOTE | 2018-10-01 07:56 | REP ---
SUPINE ABDOMEN: 09/30/2018. CLINICAL HISTORY: Constipation. COMPARISON: CT abdomen pelvis 07/26/2018. FINDINGS: Two views encompass the entirety of the abdomen and pelvis. There are right upper quadrant clips from prior cholecystectomy. Some degenerative changes are seen in the lumbar spine and hips. There are multiple pelvic phleboliths. No definite stones over the renal fossae. There is moderate stool in the rectal vault measuring 8.6 cm in transverse diameter. Remainder of the colon is without much stool, and there are no dilated small bowel loops. Gas scattered through most of the colon. IMPRESSION: 1. Some moderate stool in the rectal vault with transverse diameter 8.6 cm, otherwise negative for constipation. The remainder of the loops of colon and small bowel unremarkable. Electronically Signed by Grayson Hart MD 10/01/2018 08:23 A
--- NOTE | 2018-10-01 07:58 | REP ---
AP PORTABLE CHEST: 09/30/2018. COMPARISON: Chest 07/26/2018, CT chest 05/18/2018. CLINICAL HISTORY: Abdominal pain, chest pain. FINDINGS: Dual-lead pacer over the left midchest with leads in the right antrum and right ventricle. Left atrium and ventricle mildly prominent. Basilar fibrotic change, stable from prior studies. This causes blunting of the right CP angle. Minor scarring in the left CP angle. Some lateral pleural thickening left midchest stable, and posttraumatic changes in the left hemithorax from either chest wall trauma or surgery. The aorta is mildly tortuous. Airway intact. There is no widening of the mediastinum. No vascular redistribution or pulmonary edema. Degenerative changes in the spine and shoulders with AC joint arthritis, right greater than left. No free air. IMPRESSION: 1. Multilead pacer, unchanged. The heart shows left ventricular configuration but no pulmonary edema, pleural effusion, or definite infiltrate. There is left atrial and ventricular enlargement of the heart. 2. 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 No kindra edema, no widening of the mediastinum, no aortic aneurysm, or other acute finding. Stable chest. Electronically Signed by Grayson Hart MD 10/01/2018 08:23 A
--- NOTE | 2018-10-01 16:29 | ECGEPIP ---
Stationary ECG Study [facility] - ED Test Date: 2018-09-30 Pat Name: COLTON MACIAS Department: Room: - Gender: F Associate Embalmer/Funeral Director: MODE : 1935 Requested By: JOSE Hare PA-C Order Number: [id number] Reading MD: Alana Burgos Measurements Intervals [place] Rate: 59 P: 79 [place]: 265 QRS: -44 QRSD: 106 T: 250 QT: 403 QTc: 402 Interpretive Statements ELECTRONIC ATRIAL PACEMAKER MARKED LEFT AXIS DEVIATION SEPTAL MYOCARDIAL INFARCTION, PROBABLY OLD MODERATE T-WAVE ABNORMALITY, CONSIDER ANTEROLATERAL ISCHEMIA MODERATE T-WAVE ABNORMALITY, CONSIDER INFERIOR ISCHEMIA T WAVE CHANGES NEW 07/26/18 - CLINICAL CORRELATION Electronically Signed On 10-01-2018 16:28:38 EST by Alana Burgos
== END 2018-09-30 19:17 | disposition home or self-care (01) ==
LOC: M ED 14:38
DX: K59.00 Constipation, unspecified (principal); Z95.0 Presence of cardiac pacemaker; I10 Essential (primary) hypertension; K21.9 Gastro-esophageal reflux disease without esophagitis; E78.5 Hyperlipidemia, unspecified; E11.9 Type 2 diabetes mellitus without complications; G89.29 Other chronic pain; M54.9 Dorsalgia, unspecified; Z79.82 Long term (current) use of aspirin; Z79.4 Long term (current) use of insulin; Z79.899 Other long term (current) drug therapy; Z88.8 Allergy status to other drugs, medicaments and biological substances

== ENCOUNTER 2018-12-27 11:15 | Inpatient (IN) | payer MEDICARE, OTHER ==
[~2018-12-27] VITALS: Ht 162.6 cm; Wt 80.1 kg
[~2018-12-27 11:15] MED LIST changes: -ASPI1TAB PO; +ASPI81TA26 PO; +CITRSOL8 PO; +CRES10TA NG; +CRES10TA PO; -CRES10TA32 NG; -CRES10TA32 PO; -MIRA255PW PO; +POLY1POW4 PO; +SENN1TAB41 PO; -SENN8.6T7 PO
--- NOTE | 2018-12-27 13:44 | ECGEPIP ---
Stationary ECG Study [facility] - ED Test Date: 2018-12-27 Pat Name: COLTON MACIAS Department: Room: - Gender: F Product Development Assistant: CT : 1935 Requested By: Bari Ascencio Order Number: [id number] Reading MD: Alana Burgos Measurements Intervals [place] Rate: 60 P: 0 [place]: 317 QRS: -79 QRSD: 152 T: 111 QT: 447 QTc: 447 Interpretive Statements ELECTRONIC ATRIAL PACEMAKER ELECTRONIC VENTRICULAR PACEMAKER ABNORMAL RHYTHM ECG Electronically Signed On 12-27-2018 13:44:04 EDT by Alana Burgos
[2018-12-27 14:16] LABS: HEMATOCRIT 40.7 % (36.0-47.0); HEMOGLOBIN 12.7 g/dl (12.0-15.5); MEAN CORPUSCULAR HEMOGLOBIN 29.3 pg (27.0-33.0); MEAN CORPUSCULAR HGB CONC 31.2 g/dl (32.0-36.5); PLATELET COUNT, AUTOMATED 158 10^3/uL (150-450); RED BLOOD COUNT 4.33 10^6/uL (4.00-5.40); WHITE BLOOD COUNT 7.9 10^3/uL (4.0-10.0)
--- NOTE | 2018-12-27 14:20 | REP ---
Portable chest, 01:42 p.m., single AP view, the patient semi upright: Comparison is 09/30/2018. There is chronic mild interstitial coarsening, unchanged. There are no acute focal infiltrates or pleural effusions. Cardiac size is upper normal. There is a dual-chamber pacemaker, unchanged. No pneumothorax, hemothorax or pulmonary contusion. Impression: No acute cardiopulmonary findings. Chronic mild interstitial coarsening. Electronically Signed by Vinh López MD 12/27/2018 02:11 P
--- NOTE | 2018-12-27 14:23 | REP ---
Right wrist four views History: Trauma There is no acute fracture or dislocation. The joint spaces are normal in appearance. Impression: There is no acute fracture or dislocation. Electronically Signed by Jamin Gudino MD 12/27/2018 02:15 P
[2018-12-27 14:44] LABS: CALCIUM LEVEL 8.7 MG/DL (8.8-10.2); CREATININE FOR GFR 1.44 MG/DL (0.55-1.30); GLOMERULAR FILTRATION RATE 36.8 (>32); POTASSIUM SERUM 4.8 MEQ/L (3.5-5.1)
[2018-12-27] MEDS ORDERED: METOPROLOL TART 25 MG TABLET PO ONE (17:00)
[2018-12-27] MEDS ORDERED: RA M1SOL2 PO (17:01)
[2018-12-27] MEDS ORDERED: SITA50TAB PO (17:01)
[2018-12-27] MEDS ORDERED: ACETAMINOPHEN TAB 650MG DOSE (2X325MG) PO PRN (17:30)
[2018-12-27] MEDS ORDERED: ENOXAPARIN 40 MG/0.4 ML SYRINGE (J1650) SC SCH (17:30)
--- NOTE | 2018-12-27 17:40 | HPEPDOC ---
[facility] Medical History & Physical Date of Admission December 27, 2018 History and Physical CHIEF COMPLAINT: Fall HISTORY OF PRESENT ILLNESS: Patient is an 83-year-old female with severe dementia, COPD, hypertension, diabetes mellitus, CK D stage III, hypothyroidism and seizure disorder brought into the ER after falling in a restaurant. Patient reportedly was as a restaurant and fell onto her . She reportedly sustained no significant injury but her had a fracture and was subsequently admitted to the hospital for surgery. No loss of consciousness or head trauma reported. Patient herself states that she had some pain in her arm and head but had since resolved. Due to her severe dementia, she said she does not know to many questions and does seem confused. She does not know where she is or what year it is, only her name. Currently denies any apparent physical complaints at this time. History obtained all from previous documentation and from ER/Nursing staff. PAST MEDICAL HISTORY: Refer to [facility] PAST SURGICAL HISTORY: Hysterectomy Right mid lobe lobectomy Pacemaker SOCIAL HISTORY: Denies tobacco, alcohol or illicit drug use. FAMILY HISTORY: Parents . No Fhx hx of COPD or CAD. ALLERGIES: Please see below. REVIEW OF SYSTEMS: 10 point review of system negative except as stated in HPI HOME MEDICATIONS: Please see below. PHYSICAL EXAMINATION: General: No acute distress, Alert Eyes: Normal sclera, EOMI, EZE HENT: Atraumatic, neck supple, moist mucous membranes Cardiovascular: Normal rate, normal rhythm. No murmurs appreciated. Pulmonary: Clear to auscultation b/l, no wheezing GI: Soft, nontender, nondistended Skin: Warm and dry Neuro: CN grossly intact. No focal deficits. Strengths equal b/l. Psych: oriented x 3 LABORATORY DATA: See below. IMAGING: R. wrist XR- Impression: There is no acute fracture or dislocation. CXR- Impression: No acute cardiopulmonary findings. Chronic mild interstitial coarsening. MICROBIOLOGY: Please see below. ASSESSMENT AND PLAN: 1. Fall - Wrist XR negative. No reported head trauma. - No physical injuries noted on exam. Mental status appeared to be at baseline. - Normally lives at home with who is her primary healthcare administration intern, requires close attention due to her dementia. - Not safe for home at this time. Admit for monitoring and SW consult. - Can likely be d/c once safe disposition can be obtained. 2. COPD - Not in exacerbation. - Nebs PRN for SOB. O2 support as needed. 3. HTN - BP elevated, metoprolol 25mg given. - Unsure if she took her meds this AM. Will monitor. - Resume all home medications. 4. DM - Acucchecks ACHS. - ISS and Levemir home dose. 5. Hypothyroidism - resume home synthroid dose. 6. Seizure disorder - resume home medications. 7. CKD stage III - Appear to be stable. - Monitor BMP. DVT ppx: HSQ Code status: DNR per Vital Signs Vital Signs Date Time Temp Pulse Resp B/P (MAP) Pulse Ox O2 Delivery O2 Flow Rate FiO2 12/27/18 17:01 180/90 (120) 12/27/18 16:15 60 92 Room Air 12/27/18 11:37 97.0 18 Laboratory Data Labs 24H Laboratory Tests 2 12/27/18 14:01: Nucleated Red Blood Cells % (auto) 0.0, Anion Gap 4L, Glomerular Filtration Rate 36.8, Blood Urea Nitrogen 15, Creatinine 1.44H, Sodium Level 140, Potassium Level 4.8, Chloride Level 107, Carbon Dioxide Level 29, Calcium Level 8.7L CBC/BMP Laboratory Tests 12/27/18 14:01 Red Blood Count 4.33, Mean Corpuscular Volume 94.0, Mean Corpuscular Hemoglobin 29.3, Mean Corpuscular Hemoglobin Concent 31.2 L, Red Cell Distribution Width 14.6 H, Calcium Level 8.7 L Home Medications Scheduled Aspirin (Aspirin EC) 81 Mg Tab, 81 MG PO DAILY Exenatide Microspheres (Bydureon) 2 Mg Inj, 2 MG SC QWEEK SATURDAYS Furosemide (Furosemide) 20 Mg Tab, 20 MG PO DAILY Insulin Detemir (Levemir) 1 Units/0.01 Ml Susp, 22 UNITS SC QHS Levetiracetam (Keppra) 250 Mg Tab, 500 MG PO DAILY Levetiracetam (Keppra) 250 Mg Tab, 250 MG PO QHS Levothyroxine Sodium (Levothyroxine Sodium) 137 Mcg Tab, 137 MCG PO DAILY Losartan Potassium (Losartan Potassium) 50 Mg Tab, 50 MG PO DAILY Metoprolol Tartrate (Metoprolol Tartrate) 25 Mg Tab, 25 MG PO BID Omeprazole (Omeprazole) 20 Mg Cap, 20 MG PO DAILY Pregabalin (Lyrica) 150 Mg Cap, 150 MG PO BID Rosuvastatin Calcium (Crestor) 10 Mg Tab, 10 MG PO QHS Sitagliptin (Januvia) 50 Mg Tablet, 50 MG PO DAILY Scheduled PRN Albuterol Sulfate (Proair Hfa) 108 Mcg/Act Aer, 2 PUFF INH QID PRN for SHORTNESS OF BREATH Magnesium Citrate (Citrate of Magnesia) 296 Ml Solution, 1 DOSE PO DAILY PRN for CONSTIPATION Allergies Coded Allergies: meloxicam (Verified Allergy, Unknown, 12/27/18) A-FIB/CHADSVASC A-FIB History Current/History of A-Fib/PAF?: No CHAPIS GALINDO MD December 27, 2018 17:40
[2018-12-27] MEDS ORDERED: GLUCOSE 4 GM CHEW TABLET PO PRN (17:45)
[2018-12-27] MEDS ORDERED: DEXTROSE 50% 50 ML SYRINGE IV PRN (17:45)
[2018-12-27] MEDS ORDERED: GLUCAGON FOR INJ 1 MG VIAL (J1610) SC PRN (17:45)
[2018-12-27] MEDS ORDERED: LEVEMIR (INSULIN DETEMIR) 1 UNITS/0.01ML SC SCH (21:00)
[2018-12-27] MEDS ORDERED: levETIRAcetam 250MG TABLET (KEPPRA) PO SCH (21:00)
[2018-12-27] MEDS ORDERED: HumaLOG INSULIN (NovoLOG) PER UNIT SC SCH (21:00)
[2018-12-27 21:15] VITALS: BP 136/76
[2018-12-27] MEDS: PREGABALIN 75 MG CAP(LYRICA) PO SCH (22:45)
[2018-12-27] MEDS: METOPROLOL TART 25 MG TABLET PO SCH (22:48)
[2018-12-27] MEDS: HEPARIN SOD (PORCINE) 5000 UNITS/ML VIAL SQ SCH (22:48)
[2018-12-28 02:00] VITALS: BP 141/75
[2018-12-28 06:00] VITALS: BP 135/71
[2018-12-28] MEDS ORDERED: LEVOTHYROXINE 137MCG TABLET (0.137MG) PO SCH (06:00)
[2018-12-28] MEDS: HEPARIN SOD (PORCINE) 5000 UNITS/ML VIAL SQ SCH (06:33)
[2018-12-28 06:57] LABS: ALBUMIN 2.7 GM/DL (3.2-5.2); BILIRUBIN,TOTAL 0.4 MG/DL (0.2-1.0); CALCIUM LEVEL 8.5 MG/DL (8.8-10.2); CREATININE FOR GFR 1.29 MG/DL (0.55-1.30); GLOMERULAR FILTRATION RATE 41.8 (>32); POTASSIUM SERUM 4.2 MEQ/L (3.5-5.1); TOTAL PROTEIN 6.2 GM/DL (6.4-8.2)
[2018-12-28] MEDS ORDERED: HumaLOG INSULIN (NovoLOG) PER UNIT SC SCH ×2 (07:30→17:30)
[2018-12-28] MEDS: PREGABALIN 75 MG CAP(LYRICA) PO SCH (08:36)
[2018-12-28] MEDS: METOPROLOL TART 25 MG TABLET PO SCH (08:36)
[2018-12-28 08:37] VITALS: BP 135/71
[2018-12-28] MEDS ORDERED: FUROSEMIDE 20 MG TAB PO SCH (09:00)
[2018-12-28] MEDS ORDERED: LOSARTAN 50 MG TAB PO SCH (09:00)
[2018-12-28] MEDS ORDERED: ASPIRIN 81 MG ENTERIC TAB PO SCH (09:00)
[2018-12-28] MEDS ORDERED: OMEPRAZOLE 20 MG CAP PO SCH (09:00)
[2018-12-28] MEDS ORDERED: levETIRAcetam 250MG TABLET (KEPPRA) PO SCH (09:00)
--- NOTE | 2018-12-28 10:18 | DS.PDOC ---
Discharge Summary General Date of Admission December 27, 2018 at 17:29 Date of Discharge 12/28/18 Attending Physician: CHAPIS GALINDO MD Discharge Summary PROCEDURES PERFORMED DURING STAY: [None]. ADMITTING DIAGNOSES: 1. Fall 2. Dementia 3. COPD 4. Dm 5. Hypothyroidism 6. CKD Stage III DISCHARGE DIAGNOSES: 1. Fall 2. Dementia 3. COPD 4. Dm 5. Hypothyroidism 6. CKD Stage III COMPLICATIONS/CHIEF COMPLAINT: Dementia, Diabetes Mellitus Type 2, Fall. HISTORY OF PRESENT ILLNESS: " Patient is an 83-year-old female with severe dementia, COPD, hypertension, diabetes mellitus, CK D stage III, hypothyroidism and seizure disorder brought into the ER after falling in a restaurant. Patient reportedly was as a restaurant and fell onto her . She reportedly sustained no significant injury but her had a fracture and was subsequently admitted to the hospital for surgery. No loss of consciousness or head trauma reported. Patient herself states that she had some pain in her arm and head but had since resolved. Due to her severe dementia, she said she does not know to many ques tions and does seem confused. She does not know where she is or what year it is, only her name. Currently denies any apparent physical complaints at this time. History obtained all from previous documentation and from ER/Nursing staff. " HOSPITAL COURSE: Patient was admitted to the hospital post fall with no obvious sustain injuries. No pain/discomfort reported upon assessment. XR of wrist in ER showed no fractures. Patient was admitted for observation. She reports feeling well today and is now discharged and wants to take patient home. Patient to be discharged to follow up with PMD within 1 week. DISCHARGE MEDICATIONS: Please see below. ALLERGIES: Please see below. PHYSICAL EXAMINATION ON DISCHARGE: VITAL SIGNS: Please see below. General: No acute distress, Alert Eyes: Normal sclera, EOMI, EZE HENT: Atraumatic, neck supple, moist mucous membranes Cardiovascular: Normal rate, normal rhythm. No murmurs appreciated. Pulmonary: Clear to auscultation b/l, no wheezing GI: Soft, nontender, nondistended Skin: Warm and dry Neuro: CN grossly intact. No focal deficits. Strengths equal b/l. Psych: oriented x 3 LABORATORY DATA: Please see below. IMAGING: CXR- Impression: No acute cardiopulmonary findings. Chronic mild interstitial coarsening. ACTIVITY: [As tolerated]. DIET: Diabetic diet DISCHARGE PLAN: F/u with PMD within 1 week. DISPOSITION: Home. DISCHARGE INSTRUCTIONS: 1. f/u with PMD within 1 week ITEMS TO FOLLOWUP ON ON OUTPATIENT: 1. None DISCHARGE CONDITION: [Stable]. TIME SPENT ON DISCHARGE: 30 minutes. Vital Signs/I&Os Vital Signs Date Time Temp Pulse Resp B/P (MAP) Pulse Ox O2 Delivery O2 Flow Rate FiO2 12/28/18 08:37 135/71 12/28/18 08:36 75 12/28/18 06:00 98.0 19 96 12/27/18 20:18 Room Air I&O- Last 24 Hours up to 6 AM 12/28/18 06:00 Intake Total 420 ml Output Total 700 ml Balance -280 ml Laboratory Data Labs 24H Laboratory Tests 2 12/27/18 14:01: Nucleated Red Blood Cells % (auto) 0.0, Anion Gap 4L, Glomerular Filtration Rate 36.8, Blood Urea Nitrogen 15, Creatinine 1.44H, Sodium Level 140, Potassium Level 4.8, Chloride Level 107, Carbon Dioxide Level 29, Calcium Level 8.7L 12/27/18 22:28: Bedside Glucose (Misc Panel) 309H 12/28/18 05:27: Anion Gap 3L, Glomerular Filtration Rate 41.8, Blood Urea Nitrogen 17, Creatinine 1.29, Sodium Level 141, Potassium Level 4.2, Chloride Level 107, Carbon Dioxide Level 31, Calcium Level 8.5L, Aspartate Amino Transf (AST/SGOT) 7, Alanine Aminotransferase (ALT/SGPT) 12, Alkaline Phosphatase 104, Total Bilirubin 0.4, Total Protein 6.2L, Albumin 2.7L, Albumin/Globulin Ratio 0.77L CBC/BMP Laboratory Tests 12/27/18 14:01 Red Blood Count 4.33, Mean Corpuscular Volume 94.0, Mean Corpuscular Hemoglobin 29.3, Mean Corpuscular Hemoglobin Concent 31.2 L, Red Cell Distribution Width 14.6 H, Calcium Level 8.7 L 12/28/18 05:27 Calcium Level 8.5 L, Aspartate Amino Transf (AST/SGOT) 7, Alanine Aminotransferase (ALT/SGPT) 12, Alkaline Phosphatase 104, Total Bilirubin 0.4, Total Protein 6.2 L, Albumin 2.7 L FSBS Laboratory Tests Test 12/27/18 22:28 Range/Units Bedside Glucose (Misc Panel) 309 83-110 MG/DL Discharge Medications Scheduled Aspirin (Aspirin EC) 81 Mg Tab, 81 MG PO DAILY, (Reported) Exenatide Microspheres (Bydureon) 2 Mg Inj, 2 MG SC QWEEK, (Reported) SATURDAYS Furosemide (Furosemide) 20 Mg Tab, 20 MG PO DAILY, (Reported) Insulin Detemir (Levemir) 1 Units/0.01 Ml Susp, 22 UNITS SC QHS, (Reported) Levetiracetam (Keppra) 250 Mg Tab, 500 MG PO DAILY, (Reported) Levetiracetam (Keppra) 250 Mg Tab, 250 MG PO QHS, (Reported) Levothyroxine Sodium (Levothyroxine Sodium) 137 Mcg Tab, 137 MCG PO DAILY, (Reported) Losartan Potassium (Losartan Potassium) 50 Mg Tab, 50 MG PO DAILY, (Reported) Metoprolol Tartrate (Metoprolol Tartrate) 25 Mg Tab, 25 MG PO BID, (Reported) Omeprazole (Omeprazole) 20 Mg Cap, 20 MG PO DAILY, (Reported) Pregabalin (Lyrica) 150 Mg Cap, 150 MG PO BID, (Reported) Rosuvastatin Calcium (Crestor) 10 Mg Tab, 10 MG PO QHS, (Reported) Sitagliptin (Januvia) 50 Mg Tablet, 50 MG PO DAILY, (Reported) Scheduled PRN Albuterol Sulfate (Proair Hfa) 108 Mcg/Act Aer, 2 PUFF INH QID PRN for SHORTNESS OF BREATH, (Reported) Magnesium Citrate (Citrate of Magnesia) 296 Ml Solution, 1 DOSE PO DAILY PRN for CONSTIPATION, (Reported) Allergies Coded Allergies: meloxicam (Verified Allergy, Unknown, 12/27/18) CHAPIS GALINDO MD December 28, 2018 10:18
== END 2018-12-28 10:45 | disposition home or self-care (01) | DRG 884 ==
LOC: EDSEX 11:15 → M ED 11:15 → EDBD 11:15 → M ED INP 17:29 → M MS5PR 20:45
PROVIDERS: ADMIT Student in an Organized Health Care Education/Training Program; ATTEND Student in an Organized Health Care Education/Training Program
DX: F03.91 Unspecified dementia, unspecified severity, with behavioral disturbance (principal); J44.9 Chronic obstructive pulmonary disease, unspecified; E11.9 Type 2 diabetes mellitus without complications; E03.9 Hypothyroidism, unspecified; N18.3 Chronic kidney disease, stage 3 (moderate); G40.909 Epilepsy, unspecified, not intractable, without status epilepticus; Z79.82 Long term (current) use of aspirin; Z79.4 Long term (current) use of insulin; Z79.899 Other long term (current) drug therapy; Z88.8 Allergy status to other drugs, medicaments and biological substances; R29.6 Repeated falls; Z66 Do not resuscitate

== ENCOUNTER 2019-03-02 16:35 | Emergency (ER) | payer MEDICARE, OTHER ==
[~2019-03-02] VITALS: Ht 157.5 cm; Wt 86.4 kg
[~2019-03-02 16:35] MED LIST changes: -OMEP20CA3 PO; +OMEP20CA4 PO; +RA M1SOL2 PO; +SITA50TAB PO
[2019-03-02 18:03] LABS: BASO # 0.1 10^3/uL (0.0-0.2); BASO % 0.7 % (0.0-1.0); EOS # 0.1 10^3/uL (0.0-0.50); EOS % 1.5 % (0.0-3.0); HEMATOCRIT 42.2 % (36.0-47.0); LYMPH # 2.4 10^3/uL (1.5-4.5); LYMPH % 28.8 % (24.0-44.0); MEAN CORPUSCULAR HEMOGLOBIN 29.9 pg (27.0-33.0); MEAN CORPUSCULAR HGB CONC 33.2 g/dl (32.0-36.5); MEAN CORPUSCULAR VOLUME 90.2 fl (80.0-96.0); MONO # 0.7 10^3/uL (0.0-0.8); MONO % 7.7 % (0.0-5.0); NEUTROPHILS # 5.2 10^3/uL (1.8-7.7); NEUTROPHILS % 60.8 % (36.0-66.0); PLATELET COUNT, AUTOMATED 207 10^3/uL (150-450); RED BLOOD COUNT 4.68 10^6/uL (4.00-5.40); WHITE BLOOD COUNT 8.5 10^3/uL (4.0-10.0)
--- NOTE | 2019-03-02 18:06 | REPVR ---
EXAM: CT Head Without Contrast EXAM DATE/TIME: 03/02/2019 5:35 PM CLINICAL HISTORY: 83 years old, female; Altered mental status/memory loss; Confusion or disorientation TECHNIQUE: Imaging protocol: Computed tomography images of the head without contrast. Radiation optimization: All CT scans at this facility use at least one of these dose optimization techniques: automated exposure control; mA and/or kV adjustment per patient size (includes targeted exams where dose is matched to clinical indication); or iterative reconstruction. COMPARISON: CT Head without contrast 07/26/2018 4:23 PM FINDINGS: Brain: There is moderate age-related parenchymal volume loss. White matter changes are demonstrated in the subcortical, centrum semiovale and periventricular white matter consistent with small vessel white matter angiopathic gliosis. Ventricles: The degree of ventricular dilatation is normal for age. No pathologic enlargement demonstrated. Bones/joints: There is hyperostosis frontalis interna. Sinuses: Visualized sinuses are unremarkable. No fluid levels. Mastoid air cells: Visualized mastoid air cells are well aerated. No mastoid effusion. Soft tissues: Unremarkable. Vasculature: Marked atherosclerotic calcifications in the intracranial carotid arteries and distal vertebral arteries. IMPRESSION: 1. There is moderate age-related parenchymal volume loss. White matter changes are demonstrated in the subcortical, centrum semiovale and periventricular white matter consistent with small vessel white matter angiopathic gliosis. 2. No acute intracranial findings. Electronically signed by: Chino Guillaume On 03/02/2019 18:06:09 PM
[2019-03-02 18:48] LABS: ALBUMIN 3.3 GM/DL (3.2-5.2); ALT/SGPT 12 U/L (12-78); BILIRUBIN,DIRECT < 0.1 MG/DL (0.0-0.2); BILIRUBIN,TOTAL 0.3 MG/DL (0.2-1.0); BLOOD UREA NITROGEN 17 MG/DL (7-18); CALCIUM LEVEL 9.1 MG/DL (8.8-10.2); CARBON DIOXIDE LEVEL 24 MEQ/L (21-32); CHLORIDE LEVEL 107 MEQ/L (98-107); CK-MB VALUE MASS 1.2 NG/ML (<3.6); CPK CREATINE PHOSPHOKINASE 108 U/L (26-192); CREATININE FOR GFR 1.45 MG/DL (0.55-1.30); GLOMERULAR FILTRATION RATE 36.5 (>32); GLUCOSE, FASTING 316 MG/DL (70-100); MB/CK RELATIVE INDEX 1.11 (< OR =4); POTASSIUM SERUM 4.5 MEQ/L (3.5-5.1); SODIUM LEVEL 140 MEQ/L (136-145); TOTAL PROTEIN 6.9 GM/DL (6.4-8.2); TROPONIN I < 0.02 NG/ML (< 0.10)
[2019-03-02] MEDS ORDERED: NS 500 ML IV ONE (19:30)
[2019-03-02 20:31] VITALS: BP 170/70
--- NOTE | 2019-03-02 21:19 | ECGEPIP ---
[facility] - ED Test Date: 2019-03-02 Pat Name: COLTON MACIAS Department: Room: - Gender: Female Installation And Service Technician: : 1935 Requested By: Alana Burgos Order Number: [id number] Reading MD: Bari Espino Measurements Intervals [place] Rate: 60 P: 106 NM: 283 QRS: QRSD: 158 T: 89 QT: 452 QTc: 452 Interpretive Statements ELECTRONIC ATRIAL PACEMAKER ELECTRONIC VENTRICULAR PACEMAKER SIMILAR TO 12/27/18 Electronically Signed on 03-02-2019 21:19:12 EDT by Bari Espino
== END 2019-03-02 20:37 | disposition home or self-care (01) ==
LOC: M ED 16:35
DX: E11.65 Type 2 diabetes mellitus with hyperglycemia (principal); J44.9 Chronic obstructive pulmonary disease, unspecified; N18.3 Chronic kidney disease, stage 3 (moderate); G40.909 Epilepsy, unspecified, not intractable, without status epilepticus; E03.9 Hypothyroidism, unspecified; F03.90 Unspecified dementia, unspecified severity, without behavioral disturbance, psychotic disturbance, mood disturbance, and anxiety; Z88.8 Allergy status to other drugs, medicaments and biological substances; Z79.899 Other long term (current) drug therapy; Z79.82 Long term (current) use of aspirin

== ENCOUNTER 2020-01-02 12:06 | Inpatient (IN) | payer MEDICARE, OTHER ==
[~2020-01-02] VITALS: Ht 157.5 cm; Wt 74.4 kg
[~2020-01-02 12:06] MED LIST changes: -IRBE300T10 NG; +IRBE300T7 NG; +LORA2TAB14 PO; -LORA2TAB9 PO; +OMEP1CAP73 PO; -OMEP20CA4 PO; -SIMV20TA2 PO; +SIMV20TA22 PO; -VALA1TAB2 PO; +VALA1TAB5 PO
[2020-01-02 13:27] LABS: BASO # 0.1 10^3/uL (0.0-0.2); BASO % 0.7 % (0.0-1.0); EOS # 0.1 10^3/uL (0.0-0.5); EOS % 1.7 % (0.0-3.0); HEMATOCRIT 43.6 % (36.0-47.0); LYMPH # 1.7 10^3/uL (1.5-5.0); LYMPH % 22.8 % (24.0-44.0); MEAN CORPUSCULAR HEMOGLOBIN 27.9 pg (27.0-33.0); MEAN CORPUSCULAR HGB CONC 32.1 g/dl (32.0-36.5); MEAN CORPUSCULAR VOLUME 86.9 fl (80.0-96.0); MONO # 0.6 10^3/uL (0.0-0.8); MONO % 7.8 % (0.0-5.0); NEUTROPHILS # 4.9 10^3/uL (1.5-8.5); NEUTROPHILS % 66.7 % (36.0-66.0); PLATELET COUNT, AUTOMATED 182 10^3/uL (150-450); RED BLOOD COUNT 5.02 10^6/uL (4.00-5.40); WHITE BLOOD COUNT 7.3 10^3/uL (4.0-10.0)
[2020-01-02 14:06] LABS: ALBUMIN 2.7 GM/DL (3.2-5.2); ALT/SGPT 12 U/L (12-78); BILIRUBIN,DIRECT < 0.1 MG/DL (0.0-0.2); BILIRUBIN,TOTAL 0.6 MG/DL (0.2-1.0); BLOOD UREA NITROGEN 20 MG/DL (7-18); CALCIUM LEVEL 8.4 MG/DL (8.8-10.2); CARBON DIOXIDE LEVEL 27 MEQ/L (21-32); CHLORIDE LEVEL 104 MEQ/L (98-107); CK-MB VALUE MASS 1.3 NG/ML (<3.6); CPK CREATINE PHOSPHOKINASE 111 U/L (26-192); CREATININE FOR GFR 1.57 MG/DL (0.55-1.30); FREE T4 1.63 NG/DL (0.76-1.46); GLOMERULAR FILTRATION RATE 33.3 (>32); GLUCOSE, FASTING 163 MG/DL (70-100); MB/CK RELATIVE INDEX 1.17 (< OR =4); POTASSIUM SERUM 5.2 MEQ/L (3.5-5.1); SODIUM LEVEL 139 MEQ/L (136-145); THYROID STIMULATING HORMONE 0.128 uIU/ML (0.358-3.740); TOTAL PROTEIN 6.4 GM/DL (6.4-8.2); TROPONIN I < 0.02 NG/ML (< 0.10)
--- NOTE | 2020-01-02 14:26 | REP ---
CT BRAIN WITHOUT CONTRAST: HISTORY: Injury in a fall. Comparison head CT study March 02, 2019. CT FINDINGS: Digital preliminary scouts radiograph is unremarkable. Bone window settings demonstrate an intact bony calvarium. There is prominent distal internal carotid and distal vertebral artery vascular calcification. Visualized paranasal sinuses are clear. No intraorbital abnormality is seen. There is generalized volume loss intracranially. Extensive small vessel changes are noted in the periventricular white matter. These findings are unchanged from March 02, 2019. There is no evidence of intracranial hemorrhage. No extra-axial fluid collection is seen. No mass, acute infarction, or midline shift is appreciated. IMPRESSION: Diffuse atrophy, vascular calcification, extensive small vessel changes. No evidence of skull fracture or acute intracranial injury. Findings unchanged from March 02, 2019. Electronically Signed by John Denton MD 01/02/2020 02:47 P
--- NOTE | 2020-01-02 14:27 | REP ---
CT STUDY OF THE CERVICAL SPINE WITHOUT CONTRAST: HISTORY: Injury in a fall. TECHNIQUE: Helical scanning is acquired and overlapping 2 mm high resolution axial images were generated and reviewed at bone and soft tissue window settings. Coronal and sagittal multiplanar re-formations images are generated. CT FINDINGS: There is no evidence of cervical spine element fracture. No skull base fracture is seen. Cervical vertebral body heights are preserved. Alignment is normal. Facet joints are normally aligned bilaterally at each cervical level on multiplanar re-formations images. There is no evidence of intraspinal or paraspinal hematoma. No extra vertebral abnormality is seen. There is fairly advanced degenerative spondylosis changes. Osteoarthritic narrowing and spur formation is seen at the articulation between the dens and the anterior arch of C1. There is fairly advanced degenerative disc disease at C5-6 and C6-7. Some discogenic spurring is seen at the other disc levels as well. Osteoarthritic facet hypertrophy and sclerosis are most pronounced at C3-4 on the right. There is extensive vascular calcification noted. IMPRESSION: Moderate to advanced degenerative spondylosis changes. Vascular calcification. Otherwise negative CT study of the cervical spine without contrast. No fracture seen. Electronically Signed by John Denton MD 01/02/2020 02:47 P
[2020-01-02] MEDS ORDERED: NS 1,000 ML IV ONE (14:30)
--- NOTE | 2020-01-02 14:35 | REP ---
REASON FOR EXAM: Chest pain. COMPARISON: Multiple, the latest 12/27/2018. The technique utilized in obtaining the radiograph has magnified the cardiac silhouette and accentuated the interstitial markings. There are hazy opacities slightly increased on the right with blunting of the right CP angle. There is mild cardiomegaly accentuated by technique. The dual-chamber bipolar pacemaker device is unchanged. The osseous structures are unchanged. IMPRESSION: Bibasilar opacities as described above. I cannot rule out bibasilar atelectasis/pleural effusion/early pneumonia. This needs to be correlated clinically with appropriate followup. Electronically Signed by Alejandro Rogel DO 01/02/2020 04:23 P
[2020-01-02] MEDS ORDERED: ALBUTEROL 90 MCG/ACT 8GM HFA INHALER INH PRN (16:30)
[2020-01-02] MEDS ORDERED: GLUCOSE 4GM CHEW TABLET PO PRN (16:30)
[2020-01-02] MEDS ORDERED: DEXTROSE 50% 50 ML SYRINGE IV PRN (16:30)
[2020-01-02] MEDS ORDERED: GLUCAGON INJ 1MG VIAL SC PRN (16:30)
--- NOTE | 2020-01-02 17:06 | HPEPDOC ---
[facility] Medical History & Physical Date of Admission January 02, 2020 Date of Service: January 02, 2020 Attending Physician: JASON MATHIS MD History and Physical CHIEF COMPLAINT: Fall HISTORY OF PRESENT ILLNESS: 84-year-old female, past medical history of COPD, dementia, chronic kidney disease, diabetes mellitus, hypothyroidism, is brought to the hospital status post mechanical fall. Patient is pleasantly demented, unable to provide any information, without any complaints at this time. Patient's is at bedside who provided all of the information. He reports that patient fell while climbing a flight of stairs. She did not pass out or injure her head. Workup in the ER is negative for any acute processes, patient will require admission for possible rehabilitation placement. 10 point review of system is negative except for above PAST MEDICAL HISTORY: 1. Dementia. 2. COPD. 3. Chronic kidney disease. 4. Diabetes mellitus. 5. Hypothyroidism PAST SURGICAL HISTORY: 1. Hysterectomy. SOCIAL HISTORY: Previous smoker. Denies alcohol use. Denies drug use FAMILY HISTORY: Positive for heart disease ALLERGIES: Please see below. HOME MEDICATIONS: Please see below. PHYSICAL EXAMINATION: VITAL SIGNS: Please see below. GENERAL: No distress HEENT: Normocephalic, atraumatic, moist mucous membranes NECK: Supple CARDIOVASCULAR EXAMINATION: S1, S2, no murmurs RESPIRATORY EXAMINATION: Diminished in the bases, no wheezing ABDOMINAL EXAMINATION: Soft, nontender, nondistended, positive bowel sounds EXTREMITIES: Range of motion intact SKIN: No rash NEUROLOGICAL EXAMINATION: no focal deficits PSYCHIATRIC EXAMINATION: Calm and cooperative LABORATORY DATA: See below. IMAGING: CT head and neck negative for acute pathology MICROBIOLOGY: Please see below. ASSESSMENT: 84-year-old female with multiple medical comorbidities, is being admitted status post fall and may require placement. PLAN: 1. Mechanical fall. . Imaging in the ER, negative for acute pathology, supportive care, PT/OT evaluation, possible placement. 2. COPD Stable, continue home meds 3. Diabetes mellitus. Continue Levemir with sliding so insulin coverage with meals and at bedtime 4. Hypothyroidism. TSH low with elevated T4, continue levothyroxine with dose decreased to 100 g daily. 5. Chronic kidney disease. Creatinine, likely at baseline, will monitor Vital Signs Vital Signs Date Time Temp Pulse Resp B/P (MAP) Pulse Ox O2 Delivery O2 Flow Rate FiO2 01/02/20 16:22 59 18 145/72 (96) 92 Nasal Cannula 0.5 01/02/20 12:12 97.7 Laboratory Data Labs 24H Laboratory Tests 2 01/02/20 13:07: Immature Granulocyte % (Auto) 0.3, Neutrophils (%) (Auto) 66.7H, Lymphocytes (%) (Auto) 22.8L, Monocytes (%) (Auto) 7.8H, Eosinophils (%) (Auto) 1.7, Basophils (%) (Auto) 0.7, Neutrophils # (Auto) 4.9, Lymphocytes # (Auto) 1.7, Monocytes # (Auto) 0.6, Eosinophils # (Auto) 0.1, Basophils # (Auto) 0.1, Nucleated Red Blood Cells % (auto) 0.0, Anion Gap 8, Glomerular Filtration Rate 33.3, Calcium Level 8.4L, Total Bilirubin 0.6, Direct Bilirubin < 0.1, Aspartate Amino Transf (AST/SGOT) 23, Alanine Aminotransferase (ALT/SGPT) 12, Alkaline Phosphatase 112, Total Creatine Kinase 111, Creatine Kinase MB 1.3, Creatine Kinase MB Relative Index 1.17, Troponin I < 0.02, Total Protein 6.4, Albumin 2.7L, Albumin/Globulin Ratio 0.7L, Thyroid Stimulating Hormone (TSH) 0.128L, Free Thyroxine 1.63H CBC/BMP Laboratory Tests 01/02/20 13:07 Home Medications Scheduled Aspirin (Aspirin EC) 81 Mg Tab, 81 MG PO DAILY Exenatide Microspheres (Bydureon) 2 Mg Inj, 2 MG SC QWEEK SATURDAYS Furosemide (Furosemide) 20 Mg Tab, 20 MG PO DAILY Insulin Detemir (Levemir) 1 Units/0.01 Ml Susp, 28 UNITS SC QHS Levetiracetam (Keppra) 250 Mg Tab, 500 MG PO QAM Levetiracetam (Keppra) 250 Mg Tab, 250 MG PO QHS Levothyroxine Sodium (Levothyroxine Sodium) 137 Mcg Tab, 137 MCG PO DAILY Losartan Potassium (Losartan Potassium) 50 Mg Tab, 50 MG PO DAILY Metoprolol Tartrate (Metoprolol Tartrate) 25 Mg Tab, 25 MG PO BID Omeprazole (Omeprazole) 20 Mg Cap, 20 MG PO DAILY Pregabalin (Lyrica) 150 Mg Cap, 150 MG PO BID Rosuvastatin Calcium (Crestor) 10 Mg Tab, 10 MG PO QHS Scheduled PRN Albuterol Sulfate (Proair Hfa) 108 Mcg/Act Aer, 2 PUFF INH QID PRN for SHORTNESS OF BREATH Magnesium Citrate (Citrate of Magnesia) 296 Ml Solution, 1 DOSE PO DAILY PRN for CONSTIPATION Allergies Coded Allergies: meloxicam (Verified Allergy, Unknown, 12/27/18) A-FIB/CHADSVASC A-FIB History Current/History of A-Fib/PAF?: No JASON MATHIS MD January 02, 2020 17:06
[2020-01-02] MEDS: HumaLOG INSULIN (NovoLOG) PER UNIT SC SCH ×2 (17:30→21:00)
[2020-01-02 17:40] VITALS: BP 156/84
[2020-01-02] MEDS: PREGABALIN 75 MG CAP(LYRICA) PO SCH (21:00)
--- NOTE | 2020-01-02 21:15 | ECGEPIP ---
[facility] - ED Test Date: 2020-01-02 Pat Name: COLTON MACIAS Department: Room: - Gender: Female [employer]: [facility] : 1935 Requested By: MARIELLE Flores Order Number: [id number] Reading MD: Alana Burgos Measurements Intervals [place] Rate: 60 P: -83 HI: 285 QRS: -69 QRSD: 147 T: 120 QT: 439 QTc: 439 Interpretive Statements ELECTRONIC ATRIAL PACEMAKER ELECTRONIC VENTRICULAR PACEMAKER ABNORMAL RHYTHM ECG SIMILAR 03/02/19 Electronically Signed on 01-02-2020 21:14:36 EDT by Alana Burgos
[2020-01-02] MEDS: METOPROLOL TART 25 MG TABLET PO SCH (21:22)
[2020-01-02] MEDS: levETIRAcetam 250MG TABLET (KEPPRA) PO SCH (21:23)
[2020-01-02] MEDS: ROSUVASTATIN 10 MG TAB (CRESTOR) PO SCH (21:23)
[2020-01-02] MEDS: LEVEMIR (INSULIN DETEMIR) 1 UNITS/0.01ML SC SCH (21:23)
[2020-01-02] MEDS: HEPARIN SOD (PORCINE) 5000UNITS/ML VIAL (J1644 PER 1000UNITS) SC SCH (21:23)
[2020-01-02 22:00] VITALS: BP 154/84
[2020-01-03 06:00] VITALS: BP 148/80
[2020-01-03] MEDS ORDERED: LEVOTHYROXINE 100MCG TABLET (0.1MG) PO SCH (06:00)
[2020-01-03 06:15] LABS: HEMATOCRIT 40.7 % (36.0-47.0); HEMOGLOBIN 12.8 g/dl (12.0-15.5); MEAN CORPUSCULAR HEMOGLOBIN 27.5 pg (27.0-33.0); MEAN CORPUSCULAR HGB CONC 31.4 g/dl (32.0-36.5); MEAN CORPUSCULAR VOLUME 87.3 fl (80.0-96.0); PLATELET COUNT, AUTOMATED 153 10^3/uL (150-450); RED BLOOD COUNT 4.66 10^6/uL (4.00-5.40); WHITE BLOOD COUNT 5.6 10^3/uL (4.0-10.0)
[2020-01-03 06:47] LABS: ALBUMIN 2.5 GM/DL (3.2-5.2); BILIRUBIN,TOTAL 0.3 MG/DL (0.2-1.0); CALCIUM LEVEL 8.2 MG/DL (8.8-10.2); CREATININE FOR GFR 1.46 MG/DL (0.55-1.30); GLOMERULAR FILTRATION RATE 36.2 (>32); MAGNESIUM LEVEL 1.8 MG/DL (1.8-2.4); POTASSIUM SERUM 3.8 MEQ/L (3.5-5.1); TOTAL PROTEIN 5.6 GM/DL (6.4-8.2)
[2020-01-03] MEDS: HumaLOG INSULIN (NovoLOG) PER UNIT SC SCH ×4 (07:30→20:43)
[2020-01-03] MEDS: ASPIRIN 81 MG ENTERIC TAB PO SCH (09:00)
[2020-01-03] MEDS: PREGABALIN 75 MG CAP(LYRICA) PO SCH ×2 (09:00→21:30)
[2020-01-03] MEDS: METOPROLOL TART 25 MG TABLET PO SCH ×2 (09:01→21:31)
[2020-01-03] MEDS: HEPARIN SOD (PORCINE) 5000UNITS/ML VIAL (J1644 PER 1000UNITS) SC SCH ×2 (09:01→21:31)
[2020-01-03] MEDS: OMEPRAZOLE 20 MG CAP PO SCH (09:01)
[2020-01-03] MEDS: levETIRAcetam 250MG TABLET (KEPPRA) PO SCH ×2 (09:01→21:30)
--- NOTE | 2020-01-03 10:32 | DSES ---
DATE OF ADMISSION: 01/02/2020 DATE OF DISCHARGE: PRINCIPAL DIAGNOSIS: Dementia - brought to the hospital for placement. HISTORY: The patient was brought to the hospital after a mechanical fall. She had dementia. She did not have any fractures. She looks to have been admitted for placement. HOSPITAL COURSE: Physical therapy was ordered. Labs were obtained. Nothing remarkable was found. Today on care rounds, I am told that she will either be going home or possibly placed. Patient and Family Service (PFS) is working on that, I will finalize her discharge at that time. At this point, it looks like she will just continue to be taking the same medicines she was taking before admission: - albuterol inhaler 2 puffs four times a day - aspirin 81 mg daily - BYDUREON 2 mg subcutaneous weekly - furosemide 20 mg daily - Levemir 28 units at bedtime - Keppra 500 mg daily in the morning and 250 mg in the evening - levothyroxine dose on admission was 137 mcg daily, she looks overly replaced based on her labs and will reduce this to 125 mcg daily during this admission - losartan 50 mg daily - magnesium citrate as needed - metoprolol 25 mg twice a day - omeprazole 20 mg daily - Lyrica 150 mg twice a day - Crestor 10 mg daily She is on a no added salt, no concentrated sweets diet. Activity as tolerated. PFS is working on disposition plans this morning.
[2020-01-03 14:00] VITALS: BP 134/77
[2020-01-03] MEDS: LEVEMIR (INSULIN DETEMIR) 1 UNITS/0.01ML SC SCH (21:00)
[2020-01-03] MEDS: ROSUVASTATIN 10 MG TAB (CRESTOR) PO SCH (21:31)
[2020-01-03 22:00] VITALS: BP 133/73
[2020-01-04 06:00] VITALS: BP 133/61
[2020-01-04] MEDS: LEVOTHYROXINE 125MCG TABLET (0.125MG) PO SCH (06:01)
[2020-01-04] MEDS: OMEPRAZOLE 20 MG CAP PO SCH (08:34)
[2020-01-04] MEDS: levETIRAcetam 250MG TABLET (KEPPRA) PO SCH ×2 (08:34→22:41)
[2020-01-04] MEDS: ASPIRIN 81 MG ENTERIC TAB PO SCH (08:36)
[2020-01-04] MEDS: METOPROLOL TART 25 MG TABLET PO SCH ×2 (08:36→22:42)
[2020-01-04] MEDS: PREGABALIN 75 MG CAP(LYRICA) PO SCH ×2 (08:36→22:41)
[2020-01-04] MEDS: HEPARIN SOD (PORCINE) 5000UNITS/ML VIAL (J1644 PER 1000UNITS) SC SCH ×2 (08:37→22:40)
[2020-01-04] MEDS: HumaLOG INSULIN (NovoLOG) PER UNIT SC SCH ×4 (08:41→21:00)
[2020-01-04 14:00] VITALS: BP 119/69
--- NOTE | 2020-01-04 18:50 | IPN ---
DATE: 01/04/2020 Nurses have called because Lizbeth was having abdominal distention, abdominal pain and vomiting. She has dementia, she cannot give a good history. She is tell me she is passing any flatus, but I think last bowel movement might have been yesterday. She has remained afebrile. She is alert, conversant, but speech exhibits dementia. Abdomen is mildly distended, mildly tender. Bowel sounds are hyperactive. IMPRESSION: Possible bowel obstruction. PLAN: I have ordered a stat CT of the abdomen and pelvis and lab work. The patient will be signed out to the night coverage to followup on these. HAN
[2020-01-04 20:38] LABS: HEMATOCRIT 45.5 % (36.0-47.0); HEMOGLOBIN 14.1 g/dl (12.0-15.5); MEAN CORPUSCULAR HEMOGLOBIN 26.8 pg (27.0-33.0); MEAN CORPUSCULAR VOLUME 86.5 fl (80.0-96.0); PLATELET COUNT, AUTOMATED 142 10^3/uL (150-450); RED BLOOD COUNT 5.26 10^6/uL (4.00-5.40); WHITE BLOOD COUNT 9.2 10^3/uL (4.0-10.0)
[2020-01-04 20:44] LABS: ALBUMIN 2.6 GM/DL (3.2-5.2); BILIRUBIN,TOTAL 0.3 MG/DL (0.2-1.0); CALCIUM LEVEL 8.5 MG/DL (8.8-10.2); CREATININE FOR GFR 1.55 MG/DL (0.55-1.30); GLOMERULAR FILTRATION RATE 33.7 (>32); POTASSIUM SERUM 4.4 MEQ/L (3.5-5.1); TOTAL PROTEIN 6.7 GM/DL (6.4-8.2)
--- NOTE | 2020-01-04 21:15 | REPVR ---
PROCEDURE INFORMATION: Exam: CT Abdomen And Pelvis Without Contrast Exam date and time: 01/04/2020 8:42 PM Age: 84 years old Clinical indication: Abdominal pain; Generalized; Additional info: Abd distension/pain TECHNIQUE: Imaging protocol: Computed tomography of the abdomen and pelvis without contrast. Radiation optimization: All CT scans at this facility use at least one of these dose optimization techniques: automated exposure control; mA and/or kV adjustment per patient size (includes targeted exams where dose is matched to clinical indication); or iterative reconstruction. COMPARISON: CT ABD/PEL W/PO CONTRAST ONLY 07/26/2018 7:39 PM FINDINGS: Heart: Pacemaker electrodes noted within the heart. Lungs: Thickening of interlobular septa noted in the right lower lobe. Mediastinum: Air-fluid level noted within the distal esophagus. Liver: Normal. No mass. Gallbladder and bile ducts: Surgical clips in the gallbladder fossa. The gallbladder is absent. Pancreas: Normal. No ductal dilation. Spleen: Capsular and parenchymal calcification. No splenomegaly. Adrenals: Punctate calcification in the left adrenal gland. Left adrenal adenoma measuring approximately 1 cm without significant change from previous. 1 cm right adrenal adenoma (-1 4 H) without change from previous. Kidneys and ureters: Nonobstructing calcifications noted within the renal pelvis of both kidneys. Stomach and bowel: Dilated air and fluid containing small bowel and colon. Scattered colonic diverticula most numerous within the sigmoid colon. Surgical clips noted at the base of the cecum. Appendix: Appendix not seen as a separate structure. Intraperitoneal space: Unremarkable. No free air. No significant fluid collection. Vasculature: Arterial sclerosis of the abdominal aorta and its proximal branches. Lymph nodes: Unremarkable. No enlarged lymph nodes. Bladder: Unremarkable as visualized. Reproductive: Uterus is absent. Ovaries are not seen as separate structures. Bones/joints: Degenerative changes noted of both hip joints including joint space narrowing, subchondral cyst formation and marginal osteophytes. Grade 1 spondylolisthesis at L3-L4 with 4.4 mm anterolisthesis of L4 with respect L3. Vacuum disc phenomena noted at L3-L4 and L4-L5. Soft tissues: Rectus diastasis noted above the level of the umbilicus.. Healed midline abdominal incision. IMPRESSION: 1. Generalized ileus 2. Air-fluid level within the distal esophagus suggests gastroesophageal reflux. 3. Bilateral benign adrenal adenomas. No follow-up recommended. 4. Bilateral nonobstructing renal calculi. 5. Colonic diverticulosis. Electronically signed by: Chuyita Chowdhury On 01/04/2020 21:15:15 PM
[2020-01-04 22:00] VITALS: BP_SYST 108; BP_SYST 126; BP_DIAS 66; BP_DIAS 70
[2020-01-04] MEDS: LEVEMIR (INSULIN DETEMIR) 1 UNITS/0.01ML SC SCH (22:41)
[2020-01-04] MEDS: ROSUVASTATIN 10 MG TAB (CRESTOR) PO SCH (22:42)
[2020-01-05 06:00] VITALS: BP 130/71
[2020-01-05] MEDS: LEVOTHYROXINE 125MCG TABLET (0.125MG) PO SCH (06:34)
[2020-01-05 06:42] LABS: HEMATOCRIT 41.7 % (36.0-47.0); HEMOGLOBIN 13.4 g/dl (12.0-15.5); MEAN CORPUSCULAR HEMOGLOBIN 27.5 pg (27.0-33.0); MEAN CORPUSCULAR HGB CONC 32.1 g/dl (32.0-36.5); MEAN CORPUSCULAR VOLUME 85.5 fl (80.0-96.0); PLATELET COUNT, AUTOMATED 147 10^3/uL (150-450); RED BLOOD COUNT 4.88 10^6/uL (4.00-5.40); WHITE BLOOD COUNT 10.1 10^3/uL (4.0-10.0)
[2020-01-05 06:56] LABS: CREATININE FOR GFR 1.48 MG/DL (0.55-1.30); GLOMERULAR FILTRATION RATE 35.6 (>32); POTASSIUM SERUM 4.5 MEQ/L (3.5-5.1)
[2020-01-05] MEDS: levETIRAcetam 250MG TABLET (KEPPRA) PO SCH ×3 (09:00→21:46)
[2020-01-05] MEDS: PREGABALIN 75 MG CAP(LYRICA) PO SCH ×3 (09:00→21:46)
[2020-01-05] MEDS: METOPROLOL TART 25 MG TABLET PO SCH ×3 (09:00→21:49)
[2020-01-05] MEDS: ASPIRIN 81 MG ENTERIC TAB PO SCH ×2 (09:00→09:34)
[2020-01-05] MEDS: OMEPRAZOLE 20 MG CAP PO SCH ×2 (09:00→09:34)
[2020-01-05] MEDS: HumaLOG INSULIN (NovoLOG) PER UNIT SC SCH ×4 (09:33→20:16)
[2020-01-05] MEDS: HEPARIN SOD (PORCINE) 5000UNITS/ML VIAL (J1644 PER 1000UNITS) SC SCH ×2 (09:34→21:47)
--- NOTE | 2020-01-05 12:09 | IPNPDOC ---
Subjective Date Seen The patient was seen on 01/05/20. Subjective Chief Complaint/HPI Abdominal pain General: Reports: Other Symptoms (ROS difficulty to obtain due to cognitive status) Constitutional: Denies: Chills, Fever, Malaise, Night Sweats, Weakness, Fatigue, Weight Loss, Lethargy, Other Eyes: Denies: Pain, Vision change, Conjunctivae inflammation, Eyelid inf lammation, Redness, Other ENT: Denies: Head Aches, Ear Pain, Dysphagia, Sinus Congestion, Post Nasal Drip, Sore Throat, Epistaxis, Other Symptoms Skin: Denies: Rash, Lesions, Jaundice, Bruising, Itching, Dry, Breakdown, Nail Changes, Other Pulmonary: Denies: Dyspnea, Cough, Pleuritic Chest Pain, Other Symptoms Cardiovascular: Denies: Chest Pain, Palpitations, Orthopnea, Paroxysmal Noc. Dyspnea, Edema, Lt Headedness, Other Symptoms Gastrointestinal: Reports: Abdominal Pain Genitourinary: Denies: Dysuria, Frequency, Incontinence, Hematuria, Retention, Other Symptoms Hematologic: Denies: Bruising, Bleeding Excessively, Petecchia, Purpura, En larged Lymph Nodes, Other Hematologic Endocrine: Denies: Polydipsia, Polyphagia, Polyuria, Heat Intolerance, Cold Intolerance, Other Endocrine Sx Musculoskeletal: Denies: Neck Pain, Back Pain, Shoulder Pain, Arm Pain, Hand Pain, Leg Pain, Foot Pain, Joint Pain, Muscle Pain, Spasms, Other Symptoms Neurological: Reports: Confusion Psych: Reports: Memory Issues Objective Physical Examination General Exam: Positive: Alert, Cooperative Eye Exam: Positive: PERRLA, Conjunctiva & lids normal ENT Exam: Positive: Atraumatic, Mucous membr. moist/pink Chest Exam: Positive: Clear to auscultation, Normal air movement Heart Exam: Positive: Rate Normal Abdomen Exam: Positive: BS Hyperactive, Soft, Tenderness Extremity Exam: Positive: Normal pulses Skin Exam: Positive: Nl turgor and temperature Neuro Exam: Positive: Cranial Nerves 3-12 NL Psych Exam: Positive: Other (pleasantly confused) Assessment /Plan Problems (1) Dementia Status: Acute Response to Treatment: Controlled Discussed With: Nurse Problem Specific Plan: Monitor Clinically Problem Text: 84 year old elderly female with significant PMH of He art disease, COPD, dementia, chronic kidney disease, diabetes mellitus, and hypothyroidism who is admitted due to her suffering from ground level fall. Patient is able to say her abdomen is hurting while rubbing her epigastric region during her attempt to get out of bed this morning during breakfast. Epigastric abdominal pain-Acute -monitor for bowel movement CT abd/pelvis shows no free air (SBO assessment) Ileus on CT 01/04/20 -Food at bedside removed this morning (breakfast) -Start IVF NS @ 100ml/hr, Seizures-Chronic -Continue Keppra with few sips of water, active bowel sounds PRAFUL-acute -IVF NS @ 100ml/hr -re-check labs BMP, lactic acid, mag Falls repeated-acute -on Fall precautions -Frequent bathroom trips to decrease her attempts of getting out of bed Dementia-acute? -Re-orient patient to self, room -encourage patient to eat ( did not eat much of breakfast this morning) Plan/VTE VTE Prophylaxis Ordered?: Yes Plan Diet: Continue Current Activity: Continue Current Diagnostics: Check Labs, Repeat Labs in AM VS, I&O, 24H, Fishbone Vital Signs/I&O Vital Signs Date Time Temp Pulse Resp B/P (MAP) Pulse Ox O2 Delivery O2 Flow Rate FiO2 01/05/20 09:00 69 130/71 01/05/20 06:00 97.5 16 92 Room Air 01/02/20 16:22 0.5 I&O- Last 24 Hours up to 6 AM 01/05/20 06:00 Intake Total 150 ml Output Total 750 ml Balance -600 ml Laboratory Data 24H LABS Laboratory Tests 2 01/04/20 16:40: Bedside Glucose (Misc Panel) 108 01/04/20 19:04: Nucleated Red Blood Cells % (auto) 0.0, Anion Gap 10, Glomerular Filtration Rate 33.7, Calcium Level 8.5L, Total Bilirubin 0.3, Aspartate Amino Transf (AST/SGOT) 17, Alanine Aminotransferase (ALT/SGPT) 11L, Alkaline Phosphatase 111, Total Protein 6.7, Albumin 2.6L, Albumin/Globulin Ratio 0.6L, Amylase Level 54, Lipase 144 01/04/20 20:08: Bedside Glucose (Misc Panel) 131H 01/05/20 05:52: Nucleated Red Blood Cells % (auto) 0.0, Anion Gap 6L, Glomerular Filtration Rate 35.6, Calcium Level 8.0L 01/05/20 11:32: Bedside Glucose (Misc Panel) 169H CBC/BMP Laboratory Tests 01/04/20 19:04 01/05/20 05:52 PIPE ARANGO [employer]UC[employer] PROFESSOR January 05, 2020 12:09
[2020-01-05] MEDS: NS 1,000 ML IV SCH ×2 (12:27→22:29)
[2020-01-05 13:46] VITALS: BP 120/58
[2020-01-05] MEDS: LEVEMIR (INSULIN DETEMIR) 1 UNITS/0.01ML SC SCH (21:00)
[2020-01-05] MEDS: ROSUVASTATIN 10 MG TAB (CRESTOR) PO SCH (21:47)
[2020-01-05 22:00] VITALS: BP 121/66
[2020-01-06] MEDS ORDERED: ONDANSETRON 4MG/2ML VIAL IV PRN (04:45)
[2020-01-06] MEDS: LEVOTHYROXINE 125MCG TABLET (0.125MG) PO SCH (05:23)
--- NOTE | 2020-01-06 05:39 | REPVR ---
PROCEDURE INFORMATION: Exam: XR Abdomen, 1 View Exam date and time: 01/06/2020 5:12 AM Age: 84 years old Clinical indication: Nausea and vomiting; Additional info: N/v, HX of ileus TECHNIQUE: Imaging protocol: XR of the abdomen. Views: Frontal supine view of the abdomen. 1 View. COMPARISON: CR Abdomen,Flat Plate KUB 09/30/2018 3:31 PM FINDINGS: Gastrointestinal tract: Mild nonspecific gaseous distention of multiple small and large bowel loops. Bones/joints: Osteopenia. Multilevel degenerative disease of the lumbar spine. Degenerative changes in the bilateral sacroiliac joints. Mild osteitis pubis. IMPRESSION: Mild nonspecific gaseous distention of multiple small and large bowel loops. Electronically signed by: Darnell Cook On 01/06/2020 05:38:54 AM
[2020-01-06 06:00] VITALS: BP 127/71
[2020-01-06 06:23] LABS: HEMATOCRIT 43.6 % (36.0-47.0); HEMOGLOBIN 13.9 g/dl (12.0-15.5); MEAN CORPUSCULAR HEMOGLOBIN 27.4 pg (27.0-33.0); MEAN CORPUSCULAR HGB CONC 31.9 g/dl (32.0-36.5); PLATELET COUNT, AUTOMATED 141 10^3/uL (150-450); RED BLOOD COUNT 5.07 10^6/uL (4.00-5.40); WHITE BLOOD COUNT 6.9 10^3/uL (4.0-10.0)
[2020-01-06 06:41] LABS: CALCIUM LEVEL 7.9 MG/DL (8.8-10.2); CREATININE FOR GFR 1.53 MG/DL (0.55-1.30); GLOMERULAR FILTRATION RATE 34.3 (>32); POTASSIUM SERUM 4.5 MEQ/L (3.5-5.1)
[2020-01-06 09:00] VITALS: BP 127/71
[2020-01-06] MEDS ORDERED: levETIRAcetam INJection 500 MG in D5W MINI-BAG PLUS 100 ML IV SCH (09:00)
[2020-01-06] MEDS: ASPIRIN 81 MG ENTERIC TAB PO SCH (09:00)
[2020-01-06] MEDS: OMEPRAZOLE 20 MG CAP PO SCH (09:00)
[2020-01-06] MEDS: METOPROLOL TART 25 MG TABLET PO SCH (09:00)
[2020-01-06] MEDS: PREGABALIN 75 MG CAP(LYRICA) PO SCH (09:00)
[2020-01-06] MEDS: NS 1,000 ML IV SCH (09:05)
[2020-01-06] MEDS: HEPARIN SOD (PORCINE) 5000UNITS/ML VIAL (J1644 PER 1000UNITS) SC SCH (11:16)
--- NOTE | 2020-01-06 11:50 | IPNPDOC ---
Subjective Date Seen The patient was seen on 01/06/20. Subjective Chief Complaint/HPI 84 year old elderly female awake sitting up in her bed watching cartoons. Has some abdominal tenderness with palpation. Her nurse reported she had an episode of nausea and vomiting during the middle of the night but no further episode of nausea and vomiting this morning. General: Reports: Other Symptoms (decrease appetite; abdominal pain;); Denies: ROS Unobtainable, Chills, Night Sweats, Fatigue, Malaise, Normal Appetite Constitutional: Denies: Chills, Fever, Malaise, Night Sweats, Weakness, Fatigue, Weight Loss, Lethargy, Other Eyes: Denies: Pain, Vision change, Conjunctivae inflammation, Eyelid inflammation, Redness, Other ENT: Denies: Head Aches, Ear Pain, Dysphagia, Sinus Congestion, Post Nasal Drip, Sore Throat, Epistaxis, Other Symptoms Skin: Denies: Rash, Lesions, Jaundice, Bruising, Itching, Dry, Breakdown, Nail Changes, Other Pulmonary: Denies: Dyspnea, Cough, Pleuritic Chest Pain, Other Symptoms Cardiovascular: Denies: Chest Pain, Palpitations, Orthopnea, Paroxysmal Noc. Dyspnea, Edema, Lt Headedness, Other Symptoms Gastrointestinal: Reports: Nausea (earlier this morning ), Vomiting (last night (approximately 1L reported by nursing)), Abdominal Pain Genitourinary: Denies: Dysuria, Frequency, Incontinence, Hematuria, Retention, Other Symptoms Hematologic: Denies: Bruising, Bleeding Excessively, Petecchia, Purpura, Enlarged Lymph Nodes, Other Hematologic Endocrine: Denies: Polydipsia, Polyphagia, Polyuria, Heat Intolerance, Cold Intolerance, Other Endocrine Sx Musculoskeletal: Denies: Neck Pain, Back Pain, Shoulder Pain, Arm Pain, Hand Pain, Leg Pain, Foot Pain, Joint Pain, Muscle Pain, Spasms, Other Symptoms Neurological: Reports: Confusion Psych: Reports: Memory Issues Objective Physical Examination General Exam: Positive: Alert, Cooperative, No Acute Distress Eye Exam: Positive: PERRLA, Conjunctiva & lids normal ENT Exam: Positive: Atraumatic, Mucous membr. moist/pink Neck Exam: Positive: Supple, +2 carotid pulse wo bruit Chest Exam: Positive: Clear to auscultation, Normal air movement Heart Exam: Positive: Rate Normal Abdomen Exam: Positive: BS Hyperactive, Soft, Tenderness (Hypogastric region to palpation) Extremity Exam: Positive: Normal pulses Skin Exam: Positive: Nl turgor and temperature Neuro Exam: Positive: Cranial Nerves 3-12 NL Psych Exam: Positive: Other (pleasantly confused) Assessment /Plan Problems (1) Dementia Status: Acute Response to Treatment: Controlled Discussed With: Nurse Problem Specific Plan: Monitor Clinically Problem Text: 84 year old elderly female with significant PMH of Heart disease, COPD, dementia, chronic kidney disease, diabetes mellitus, and hypothyroidism who is admitted due to her suffering from ground level fall. Patient is able to say her abdomen is hurting while rubbing her epigastric region during her attempt to get out of bed this morning during breakfast. Epigastric abdominal pain-Acute -monitor for bowel movement -CT abd/pelvis shows no free air (SBO assessment) -NG tube? Illeus per CT -Acute -Continue treatment with NPO and IV fluids Seizures-Chronic -Continue treatment switch po Keppra to IV Keppra 500 mg q AM and 250 q HS. PRAFUL-acute -IVF NS @ 100ml/hr -re-check labs BMP, lactic acid, mag Falls repeated-acute -on Fall precautions -Frequent bathroom trips to decrease her attempts of getting out of bed Dementia-acute? -Re-orient patient to self, room -encourage patient to eat ( did not eat much of breakfast this morning) Plan/VTE VTE Prophylaxis Ordered?: Yes Plan Diet: Continue Current Activity: Continue Current Diagnostics: Check Labs, Repeat Labs in AM VS, I&O, 24H, Fishbone Vital Signs/I&O Vital Signs Date Time Temp Pulse Resp B/P (MAP) Pulse Ox O2 Delivery O2 Flow Rate FiO2 01/06/20 09:00 72 127/71 01/06/20 06:00 98.9 16 93 Room Air 01/02/20 16:22 0.5 I&O- Last 24 Hours up to 6 AM 01/06/20 06:00 Intake Total 2070 ml Output Total 100 ml Balance 1970 ml Laboratory Data 24H LABS Laboratory Tests 2 01/05/20 16:40: Bedside Glucose (Misc Panel) 108 01/05/20 20:05: Bedside Glucose (Misc Panel) 136H 01/06/20 05:31: Bedside Glucose (Misc Panel) 173H 01/06/20 05:42: Nucleated Red Blood Cells % (auto) 0.0, Anion Gap 9, Glomerular Filtration Rate 34.3, Calcium Level 7.9L CBC/BMP Laboratory Tests 01/06/20 05:42 PIPE ARANGO ACID SPLICER January 06, 2020 11:50
--- NOTE | 2020-01-06 16:44 | DS.PDOC ---
Discharge Summary General Date of Admission January 02, 2020 at 16:17 Date of Discharge 01/06/2020 Attending Physician: ASHLEY SUNSHINE MD Discharge Summary NOTE: Time of : 1525 ALLERGIES: Meloxicam Heart sounds not present, verified by Doppler and patient monitor No movement and or rise and fall in chest. Carotid pulse and femoral pulses absent bilateral to palpation Pupillary light reflex absent; pupils fixed and dilated. Corneal light reflexes absent. Dolls eyes absent. Gag reflex absent. DISCHARGE NOTE: Principal Diagnosis: Mechanical Fall climbing flight of stairs without hitting her head Resolution of Final Diagnosis: Acute Respiratory Failure and Cardiac Arrest with aspiration; Illeus per CT treated with NPO and IV fluids; Seizures treated with IV Keppra. DISCHARGE PLAN: Release to home DISPOSITION: home DISCHARGE INSTRUCTIONS: 1. none ITEMS TO FOLLOWUP ON ON OUTPATIENT: 1. none DISCHARGE CONDITION: TIME SPENT ON DISCHARGE: 38 minutes and critical time spent with patient was 38 minutes. Vital Signs/I&Os Vital Signs Date Time Temp Pulse Resp B/P (MAP) Pulse Ox O2 Delivery O2 Flow Rate FiO2 01/06/20 09:00 72 127/71 01/06/20 06:00 98.9 16 93 Room Air 01/02/20 16:22 0.5 I&O- Last 24 Hours up to 6 AM 01/06/20 06:00 Intake Total 2070 ml Output Total 100 ml Balance 1970 ml Laboratory Data Labs 24H Laboratory Tests 2 01/05/20 16:40: Bedside Glucose (Misc Panel) 108 01/05/20 20:05: Bedside Glucose (Misc Panel) 136H 01/06/20 05:31: Bedside Glucose (Misc Panel) 173H 01/06/20 05:42: Nucleated Red Blood Cells % (auto) 0.0, Anion Gap 9, Glomerular Filtration Rate 34.3, Calcium Level 7.9L 01/06/20 12:10: Bedside Glucose (Misc Panel) 185H 01/06/20 15:23: Bedside Glucose (Misc Panel) 134H CBC/BMP Laboratory Tests 01/06/20 05:42 FSBS Laboratory Tests Test 01/05/20 16:40 01/05/20 20:05 01/06/20 05:31 01/06/20 12:10 Range/Units Bedside Glucose (Misc Panel) 108 136 173 185 83-110 MG/DL Test 01/06/20 15:23 Range/Units Bedside Glucose (Misc Panel) 134 83-110 MG/DL Discharge Medications No Active Prescriptions or Reported Meds Allergies Coded Allergies: meloxicam (Verified Allergy, Unknown, 12/27/18) PIPE ARANGO January 06, 2020 16:44
[2020-01-06] MEDS ORDERED: CALCIUM CHLORIDE 10% 1 GM/10 ML SYR ONE (16:55)
[2020-01-06] MEDS ORDERED: EPINEPHrine 1MG/10ML SYRINGE 1.5IN ONE (16:55)
[2020-01-06] MEDS ORDERED: SODIUM BICARBONATE 8.4% INJ 50 ML SYRINGE ONE (16:55)
[2020-01-06] MEDS ORDERED: levETIRAcetam INJection 250 MG in D5W 100 ML IV SCH (21:00)
--- NOTE | 2020-01-07 07:19 | RO ---
DATE OF PROCEDURE: 01/06/20 INDICATION: Cardiac arrest, airway protection. PREPROCEDURE DIAGNOSIS: Cardiac arrest, aspiration. POSTPROCEDURE DIAGNOSIS: Cardiac arrest, aspiration. SURGEON: DR. Marilee Ronquillo CONSENT: Due to the emergency care of the procedure the consent was implied. The patient was a full code. DESCRIPTION OF PROCEDURE: The patient had a max cart called for cardiac arrest. The patient was found in bed with a large amount of vomitus on the patient and on the floor and unresponsive with no pulse. Cardiopulmonary resuscitation (CPR) was initiated. Please see full code documentation for further details about medications and management of cardiac arrest. The patient was placed on cardiac surgeon including continuous pulse oximetry. The patient was being pre oxygenated with bag mask ventilation. She had emergent intubation during her arrest code using a size 3 MAC laryngoscope and a size 7 endotracheal tube with stylette. The patient was intubated on the first attempt. The stylette was removed and the cuff was inflated. Appropriate endotracheal tube position was confirmed with direct visualization of vocal cord passage by the endotracheal tube, fogging of the tube and CO2 colometric indicator. The tube was secured at [address] [facility]ITAL[facility]aggie
== END 2020-01-06 18:50 | disposition expired | DRG 884 ==
LOC: EDBD 12:06 → M ED 12:06 → M ED INP 16:17 → ENRESERV 16:48 → M MSPAV 17:37
PROVIDERS: ADMIT Internal Medicine; ATTEND Family Medicine
DX: F03.90 Unspecified dementia, unspecified severity, without behavioral disturbance, psychotic disturbance, mood disturbance, and anxiety (principal); N17.9 Acute kidney failure, unspecified; K56.7 Ileus, unspecified; J44.9 Chronic obstructive pulmonary disease, unspecified; E11.9 Type 2 diabetes mellitus without complications; E03.9 Hypothyroidism, unspecified; N18.9 Chronic kidney disease, unspecified; Z87.891 Personal history of nicotine dependence; Z79.82 Long term (current) use of aspirin; Z79.899 Other long term (current) drug therapy; R56.9 Unspecified convulsions; R29.6 Repeated falls; I46.9 Cardiac arrest, cause unspecified